=== PATIENT | female | born 1940 | race Caucasian/White ===

== ENCOUNTER 2018-02-06 12:31 | Inpatient (IN) | payer OTHER ==
[~2018-02-06] VITALS: Ht 304.8 cm; Wt 112.5 kg
[~2018-02-06 12:31] MED LIST: ASPIR 8181 MG PO; CEFTIN500 MG PO; CLOTRIMAZOLE10 MG PO; DITROPAN XL5 MG PO; FUROSEMIDE40 MG PO; INVANZ1 GM IVP; METOPROLOL TART50 MG PO; NIFEDICAL XL30 MG PO; NORCO 5-325 TA1 EACH PO; PEPCID20 MG PO; TYLENOL WITH C1 EACH PO; ZOLPIDEM TARTRAT5 MG PO
[2018-02-06 13:38] LABS: BASOPHILS % 0.5 % (0.0-1.0); EOSINOPHILS % 0.4 % (0.0-6.0); HEMATOCRIT 34.1 % (34.2-44.1); HEMOGLOBIN 11.1 g/dL (12.0-16.0); LYMPHOCYTES # (AUTO) 1.8 (1.0-3.2); LYMPHOCYTES % 22.1 % (18.0-39.1); MEAN CORPUSCULAR HEMOGLOBIN 33.5 pg (28-32); MEAN CORPUSCULAR HGB CONC 32.6 g/dL (31-35); MONOCYTES # (AUTO) 0.8 (0.2-0.8); MONOCYTES % 9.5 % (4.4-11.3); NEUTROPHILS # (AUTO) 5.3 (2.1-6.9); PLATELET COUNT 269 x10e3/uL (140-360); RED BLOOD COUNT 3.31 x10e6/uL (3.6-5.1); RED CELL DISTRIBUTION WIDTH 13.7 % (11.7-14.4)
[2018-02-06 13:52] LABS: ALBUMIN 2.4 g/dL (3.5-5.0); ALBUMIN/GLOBULIN RATIO 0.5 (0.8-2.0); ALKALINE PHOSPHATASE 135 IU/L (40-150); ANION GAP 18.1 mmol/L (8-16); BLOOD UREA NITROGEN 60 mg/dL (7-26); BUN/CREATININE RATIO 18 (6-25); CALCIUM 9.7 mg/dL (8.4-10.2); CARBON DIOXIDE 20 mmol/L (22-29); CHLORIDE 101 mmol/L (98-107); CREATININE, SERUM 3.27 mg/dL (0.57-1.11); EST GLOMERULAR FILTRATION RATE 14 ML/MIN (60-); GLUCOSE 105 mg/dL (74-118); SODIUM 134 mmol/L (136-145)
[2018-02-06 13:53] LABS: ALANINE AMINOTRANSFERASE < 6 IU/L (0-55)
[2018-02-06 13:54] LABS: POTASSIUM 5.1 mmol/L (3.5-5.1)
[2018-02-06 14:14] LABS: CLARITY,URINE SL CLOUDY (CLEAR); COLOR,URINE YELLOW (YELLOW); LEUKOCYTE ESTERASE ,URINE 1+ (NEGATIVE); NITRITE,URINE NEGATIVE (NEGATIVE)
[2018-02-06 14:15] LABS: BILIRUBIN,URINE NEGATIVE (NEGATIVE); KETONES,URINE NEGATIVE (NEGATIVE); PROTEIN,URINE DIPSTICK 2+ (NEGATIVE); URINE UROBILINOGEN 0.2 mg/dL (0.2 - 1)
[2018-02-06 14:26] LABS: BACTERIA,URINE FEW /HPF; EPITHELIAL CELLS,URINE MODERATE /LPF
--- NOTE | 2018-02-06 16:06 | Diagnostic Imaging Report ---
EXAM: CT of the abdomen and pelvis WITHOUT contrast HISTORY: Stone protocol, severe pain, bilateral flanks COMPARISON: None available. TECHNIQUE: The abdomen and pelvis were scanned utilizing a multidetector helical scanner. Coronal and sagittal reformats are available. PROTOCOL: Routine IV CONTRAST: None, which limits sensitivity and specificity of evaluation of the soft tissues and vascular structures. ORAL CONTRAST: None, which limits sensitivity and specificity of evaluation of the bowel. RADIATION DOSE: Total DLP: 716.91 mGy*cm Estimated effective dose: (DLP x 0.015 x size factor) Dose modulation, iterative reconstruction, and/or weight based adjustment of the mA/kV was utilized to reduce the radiation dose to as low as reasonably achievable. COMPLICATIONS: None FINDINGS: LOWER THORAX: Mild bibasilar atelectasis versus scarring. Trace right pleural thickening versus pleural fluid. Incidentally, small amount of low-density fluid at the posterior aspect of the inferior mediastinum (series 3 image 14), abutting the right posterior lateral aspect of the esophagus (series 3 image 10), the superior extent of the fluid may not be completely imaged. HEPATOBILIARY: No definite focal hepatic lesions. No biliary ductal dilatation. Metallic clips in the right upper quadrant of the abdomen are compatible with prior cholecystectomy. SPLEEN: No splenomegaly. Multiple small calcifications within the spleen. PANCREAS: No focal masses or ductal dilatation. ADRENALS: No discrete adrenal nodule. KIDNEYS/URETERS: Right: Moderate to severe hydroureteronephrosis to the level of the postsurgical changes within the right lower abdomen/pelvis. Left: Multiple coarse calcifications within the left kidney and severe parenchymal atrophy. No dilation of the ureter to the level of the postsurgical changes within the right lower abdomen/pelvis. The largest calcification is near the inferior pole measuring 2.4 cm (AP) x 2.3 cm (ML) x 2.1 cm (CC). PELVIC ORGANS/BLADDER: Post surgical changes, the urinary bladder is not visible. PERITONEUM / RETROPERITONEUM: No free air or fluid. GI TRACT: On limited evaluation of the gastrointestinal tract, no dilation or wall thickening identified. The stomach is decompressed, which limits evaluation. Colonic diverticulosis, without CT evidence of acute diverticulitis. Small bowel and colon extends into the large right anterolateral abdominal wall hernia. LYMPH NODES: No pathologically enlarged lymph nodes. VESSELS: Diffuse scattered atherosclerotic vascular calcifications. BONES: Diffusely decreased mineralization of the osseous structures limits bone detail. Multifocal degenerative changes, most notably the lumbosacral spine. Left convex curvature with associated right-sided anterior predominant age-indeterminate compression deformity of L3 and a left-sided to a lesser extent of L5. SOFT TISSUES: Diffuse muscle atrophy. Large right anterolateral abdominal wall hernia, the wall defect measures approximately 12 cm (CC) x 11 cm (ML). A smaller right para median ventral upper abdominal wall hernia containing a loop of nondilated small bowel (series 3 image 63), 6 cm (ML) sees x 2.5 cm (CC). An implanted right posterior lumbar-type device with a single sacral leads. IMPRESSION: 1. Multiple postsurgical changes and abdominal wall hernias. 2. Moderate to severe right hydroureteronephrosis. 3. Multiple left renal calculi and severe left renal cortical atrophy. 4. Colonic diverticulosis without CT evidence of acute diverticulitis. 5. Osseous demineralization with age-indeterminate compression deformities of L3 and L5. 6. Nonspecific posterior mediastinal fluid, likely partially visualized, the differential diagnosis includes an esophageal duplication cyst, which may be ruptured and partially decompressed. Recommend a follow-up nonemergent CT of the chest with contrast for further evaluation. Signed by: Dr. Sumit Locke D.O., M.M.M. on 02/06/2018 4:02 PM
--- OUTSIDE RECORDS SUMMARY | 2018-02-06 17:55 | XMS REPORT ---
Author [facility] Address Unknown Phone Unavailable Care Team Providers Care Attendance Clerk Name Role Phone Pablo HOOKER Unavailable Unavailable Problems This patient has no known problems. Allergies, Adverse Reactions, Alerts This patient has no known allergies or adverse reactions. Medications This patient has no known medications. Results Test Description Test Time Test Comments Text Results Atomic Results Result Comments CT ABDOMEN/PELVIS WO 2018-02-06 15:40:00 [place] [address] Patient Name: STORMY STREETER MR #: [id number] : 1940 Age/Sex: 77/F Req #: [id number] Adm Physician: Ordered by: BENITA HOOKER MD Report #: [id number] Location: ER Room/Bed: Procedure: [id number] CT/CT ABDOMEN/PELVIS WO Exam Date: 02/06/18 Exam Time: 1440 REPORT STATUS: Signed EXAM: CT of the abdomen and pelvis WITHOUT contrast HISTORY: Stone protocol, severe pain, bilateral flanks COMPARISON: None available. TECHNIQUE: The abdomen and pelvis were scanned utilizing a multidetector helical scanner. Coronal and sagittal reformats are available. PROTOCOL: Routine IV CONTRAST: None, which limits sensitivity and specificity of evaluation of the soft tissues and vascular structures. ORAL CONTRAST: None, which limits sensitivity and specificity of evaluation of the bowel. RADIATION DOSE: Total DLP: 716.91 mGy*cm Estimated effective dose: (DLP x 0.015 x size factor) Dose modulation, iterative reconstruction, and/or weight based adjustment of the mA/kV was utilized to reduce the radiation dose to as low as reasonably achievable. COMPLICATIONS: None FINDINGS: LOWER THORAX: Mild bibasilar atelectasis versus scarring. Trace right pleural thickening versus pleural fluid. Incidentally, small amount of low-density fluid at the posterior aspect of the inferior mediastinum (series 3 image 14), abutting the right posterior lateral aspect of the esophagus (series 3 image 10), the superior extent of the fluid may not be completely imaged. HEPATOBILIARY: No definite focal hepatic lesions. No biliary ductal dilatation. Metallic clips in the right upper quadrant of the abdomen are compatible with prior cholecystectomy. SPLEEN: No splenomegaly. Multiple small calcifications within the spleen. PANCREAS: No focal masses or ductal dilatation. ADRENALS: No discrete adrenal nodule. KIDNEYS/URETERS: Right: Moderate to severe hydroureteronephrosis to the level of the postsurgical changes within the right lower abdomen/pelvis. Left: Multiple coarse calcifications within the left kidney and severe parenchymal atrophy. No dilation of the ureter to the level of the postsurgical changes within the right lower abdomen/pelvis. The largest calcification is near the inferior pole measuring 2.4 cm (AP) x 2.3 cm (ML) x 2.1 cm (CC). PELVIC ORGANS/BLADDER: Post surgical changes, the urinary bladder is not visible. PERITONEUM / RETROPERITONEUM: No free air or fluid. GI TRACT: On limited evaluation of the gastrointestinal tract, no dilation or wall thickening identified. The stomach is decompressed, which limits evaluation. Colonic diverticulosis, without CT evidence of acute diverticulitis. Small bowel and colon extends into the large right anterolateral abdominal wall hernia. LYMPH NODES: No pathologically enlarged lymph nodes. VESSELS: Diffuse scattered atherosclerotic vascular calcifications. BONES: Diffusely decreased mineralization of the osseous structures limits bone detail. Multifocal degenerative changes, most notably the lumbosacral spine. Left convex curvature with associated right-sided anterior predominant age-indeterminate compression deformity of L3 and a left-sided to a lesser extent of L5. SOFT TISSUES: Diffuse muscle atrophy. Large right anterolateral abdominal wall hernia, the wall defect measures approximately 12 cm (CC) x 11 cm (ML). A smaller right para median ventral upper abdominal wall hernia containing a loop of nondilated small bowel (series 3 image 63), 6 cm (ML) sees x 2.5 cm (CC). An implanted right posterior lumbar-type device with a single sacral leads. IMPRESSION: 1. Multiple postsurgical changes and abdominal wall hernias. 2. Moderate to severe right hydroureteronephrosis. 3. Multiple left renal calculi and severe left renal cortical atrophy. 4. Colonic diverticulosis without CT evidence of acute diverticulitis. 5. Osseous demineralization with age-indeterminate compression deformities of L3 and L5. 6. Nonspecific posterior mediastinal fluid, likely partially visualized, the differential diagnosis includes an esophageal duplication cyst, which may be ruptured and partially decompressed. Recommend a follow-up nonemergent CT of the chest with contrast for further evaluation. Signed by: Dr. Loretta Locke D.O., M.M.M. on 02/06/2018 4:02 PM Dictated By: LORETTA LOCKE DO 160 Transcribed By: GENE on 02/06/18 160 COPY TO: BENITA HOOKER MD
[2018-02-06 18:34] VITALS: BP 156/70
[2018-02-06] MEDS ORDERED: TRAZODONE HCL50 MG PO (20:24)
[2018-02-06 21:00] VITALS: BP 166/74
--- NOTE | 2018-02-06 21:00 | NUR ---
received pt from ER to room 297, AAOx3, resp even and unlabored, on room air, c/o bilateral flank pain 08/18, has tylenol #3 but pt refused pain medication at this time "i dont want to take any narcotics right now", informed pt she has that pain medication order when she needs it, has several red spots and some scabs to face "i have psoriasis" no c/o of itching or pain to face, ambulates with assist, uses walker at home, has nephrostomy to right side of abdomen draining clear yellow urine, able to verbalize needs, bed in lowest position and locked with bed alarm on, call light in reach and instructed pt to call when assistance needed
[2018-02-07] VITALS (8 sets, daily range): BP systolic 138–183; BP diastolic 59–80
[2018-02-07] MEDS: ACETAMINOPHEN/CODEINE 300MG - 30MG TAB PO PRN ×3 (02:48→16:00)
--- NOTE | 2018-02-07 07:25 | NUR ---
RECEIVED PT RESTING IN BED. RESPIRATIONS ARE EVEN AND UNLABORED, NO ACUTE DISTRESS NOTED. CALL LIGHT WITH IN REACH. BED IN THE LOWEST POSITION.
--- NOTE | 2018-02-07 07:25 | NUR ---
UPON ASSESSMENT PATIENT HAS BLANCHABLE REDNESS TO SACRUM AND BILATERAL UPPER BUTTOCK.
--- NOTE | 2018-02-07 07:28 | NUR ---
APPLIED ALLEVYN DRESSING TO SACRUM/UPPER BUTTOCKS PROPHYLACTICALLY.
[2018-02-07] MEDS ORDERED: SUCCINYLCHOLINE 200 MG/10 ML SYR ONE (13:42)
[2018-02-07] MEDS ORDERED: SODIUM BICARBO650 MG PO (15:48)
[2018-02-07] MEDS ORDERED: DOCUSATE SODIU100 MG PO (15:48)
[2018-02-07] MEDS ORDERED: LEVOCETIRIZINE D5 MG PO (15:48)
[2018-02-07] MEDS ORDERED: COLESTIPOL HCL1 GM PO (15:48)
[2018-02-07] MEDS ORDERED: NON-FORMULARY MEDICATION (Zolpidem Tartrate 5 MG) PO SCH (16:30)
--- NOTE | 2018-02-07 16:57 | History and Physical ---
PRIMARY CARE PHYSICIAN: Dr. Spencer Marvin. CHIEF COMPLAINT: Dehydration, urinary tract infection, left flank pain. HISTORY OF PRESENT ILLNESS: Patient is a 77-year-old female with extensive abdominal pelvic surgery for her urinary bladder problem. The patient came in with abdominal pain more so on the right side, and CT scan showed moderate to severe right hydroureteronephrosis associated with urinary tract infection. She also has an ileal conduit as well. CT scan showed multiple postsurgical changes and an abdominal wall hernia. The patient is otherwise stable at this time. She does have multiple left renal calculi and severe left renal cortical atrophy which is chronic to this patient. Patient had a low-grade fever as well. She is comfortable at this time. Blood pressure elevated. PAST MEDICAL HISTORY: Chronic kidney disease. Ureterostomy/ileal conduit obstruction. Recurrent urinary tract infection. Hypertension. Insomnia. Reflux. Left renal atrophy. Chronic kidney disease. SOCIAL HISTORY: Patient does not smoke or use alcohol. No recreational drug use. ALLERGIES: TO PENICILLIN. HOME MEDICATIONS: List is reviewed. REVIEW OF SYSTEMS: As mentioned above. Right flank pain. Fever. PHYSICAL EXAMINATION: VITAL SIGNS: T-max was 99.8. Blood pressure 121/61. Pulse rate 71. Respirations 20. GENERAL: The patient is not in acute distress. She is awake. HEENT: Normocephalic, atraumatic, anicteric. NECK: Supple grossly. PULMONARY: Diminished breath sounds. CARDIOVASCULAR: S1, S2. Regular rate and rhythm. ABDOMEN: Large abdominal hernia. She has a ureterostomy with a history of ileal conduit. Some tenderness in the area. EXTREMITIES: No cyanosis or edema. NEUROLOGIC: No focal deficit. LABORATORY: Sodium is 134, potassium 5.1, chloride 101, bicarb 20, BUN 60, creatinine 3.2, glucose 105. WBC is 8.0, hemoglobin 11, hematocrit 34, platelet is 269. IMPRESSION: 1. Urinary tract infection associated with right hydroureteronephrosis. 2. Bilateral kidney stone with obstruction. 3. Left atrophy kidney noticed chronically. 4. Acute on chronic kidney failure. 5. Possible early pyelonephritis. PLAN: IV antibiotics. Urine culture. Pain control. Follow up on Dr. Robby Estrada's recommendation on obstructive care. We will resume home medications. Blood pressure control. Job#: [id number] EV
[2018-02-07] MEDS: SODIUM CHLORIDE 0.9% 1000ML 1,000 ML IV SCH (17:13)
[2018-02-07] MEDS: NIFEDIPINE CR 30 MG TAB PO SCH (17:13)
[2018-02-07] MEDS: DOCUSATE SODIUM 100 MG CAP PO SCH (17:17)
[2018-02-07] MEDS: METOPROLOL TARTRATE 50 MG TAB PO SCH (17:17)
[2018-02-07] MEDS: FAMOTIDINE 20 MG TAB PO SCH (17:17)
[2018-02-07] MEDS: SODIUM BICARBONATE 650 MG TAB PO SCH (17:17)
[2018-02-07] MEDS: AZTREONAM 1 GM/NS 50 ML 50 ML IV SCH (17:49)
--- NOTE | 2018-02-07 19:34 | NUR ---
REPORT GIVEN TO ONCOMING NURSE. PATIENT IS RESTING IN BED. NO S/S OF DISTRESS NOTED. CALL LIGHT WITHIN REACH. BED IN THE LOWEST POSITION.
[2018-02-07] MEDS: ZOLPIDEM TARTRATE 5 MG TAB PO SCH (21:00)
[2018-02-07] MEDS: TRAZODONE HCL 50 MG TAB PO SCH (21:00)
--- NOTE | 2018-02-07 21:21 | NUR ---
RECEIVED PT IN BED AOX2.RESPIRATIONS ARE EVEN AND UNLABORED .UROSTOMY INTACT .PT REFUSED TO LIE IN THE BED .PT WANTS SIT ON THE SIDE OF THE BED .CALL LIGHT WITH IN REACH .
[2018-02-08] VITALS (9 sets, daily range): BP systolic 129–158; BP diastolic 65–83
[2018-02-08] MEDS: ACETAMINOPHEN/CODEINE 300MG - 30MG TAB PO PRN (01:18)
[2018-02-08] MEDS: AZTREONAM 1 GM/NS 50 ML 50 ML IV SCH ×3 (04:30→21:24)
[2018-02-08] MEDS: SODIUM CHLORIDE 0.9% 1000ML 1,000 ML IV SCH ×2 (05:45→21:24)
[2018-02-08 06:15] LABS: BASOPHILS % 0.3 % (0.0-1.0); EOSINOPHILS % 0.1 % (0.0-6.0); HEMATOCRIT 31.1 % (34.2-44.1); HEMOGLOBIN 10.1 g/dL (12.0-16.0); LYMPHOCYTES # (AUTO) 2.3 (1.0-3.2); LYMPHOCYTES % 30.1 % (18.0-39.1); MEAN CORPUSCULAR HEMOGLOBIN 33.8 pg (28-32); MEAN CORPUSCULAR HGB CONC 32.5 g/dL (31-35); MONOCYTES # (AUTO) 0.8 (0.2-0.8); MONOCYTES % 10.2 % (4.4-11.3); NEUTROPHILS # (AUTO) 4.4 (2.1-6.9); NEUTROPHILS % 58.4 % (38.7-80.0); PLATELET COUNT 248 x10e3/uL (140-360); RED BLOOD COUNT 2.99 x10e6/uL (3.6-5.1); RED CELL DISTRIBUTION WIDTH 13.5 % (11.7-14.4)
[2018-02-08 06:30] LABS: CREATININE, SERUM 2.71 mg/dL (0.57-1.11)
--- NOTE | 2018-02-08 06:41 | NUR ---
PT AGITATED DURING THE NIGHT .PT C/O PAIN AND GIVEN THE ORDERED PAIN MEDICATION.TEM IS 100.[address] CALDWELL AND REQUESTED FOR TYLENOL ,.HE HAS WRITTEN ORDER FOR BLOOD CULTURE AND CHEST X-RAY .HE TOLD TO DO ONE MORE CULTURE IF THE TEMP >101.PT RESTING .CALL LIGHT WITH IN REACH.
--- NOTE | 2018-02-08 07:11 | NUR ---
.REPORT GIVEN TO THE ONCOMING NURSE .
--- NOTE | 2018-02-08 07:25 | NUR ---
RECEIVED PATIENT RESTING IN BED. NO ACUTE DISTRESS NOTED. CALL LIGHT WITHIN REACH. BED IN THE LOWEST POSITION. BED ALARM ON.
[2018-02-08] MEDS ORDERED: NON-FORMULARY MEDICATION (Levocetirizine Dihydrochloride 5 MG) PO SCH (09:00)
--- NOTE | 2018-02-08 09:34 | Diagnostic Imaging Report ---
EXAMINATION: CHEST 2 VIEWS INDICATION: ^fevers ^[id number] ^[id number] COMPARISON: 03/30/2015 FINDINGS: PA and lateral views TUBES and LINES: Left chest wall dual-lead cardiac device in place with distal leads overlying right atrium and right ventricle. LUNGS: Lungs are well inflated. Central peribronchovascular thickening/cuffing. Left basilar hazy opacification. PLEURA: No pneumothorax. HEART AND MEDIASTINUM: The cardiomediastinal silhouette is prominent. Median sternotomy wires. BONES AND SOFT TISSUES: No acute osseous lesion. Soft tissues are unremarkable. UPPER ABDOMEN: No free air under the diaphragm. IMPRESSION: Central peribronchovascular thickening/cuffing. Left basilar hazy opacification, representing small effusion and/or pneumonia. Signed by: Dr. Mustapha Helton MD on 02/08/2018 9:31 AM
[2018-02-08] MEDS: NIFEDIPINE CR 30 MG TAB PO SCH (10:40)
[2018-02-08] MEDS: OXYBUTYNIN CHLORIDE XL 5 MG TAB PO SCH (10:40)
[2018-02-08] MEDS: FAMOTIDINE 20 MG TAB PO SCH ×2 (10:40→17:03)
[2018-02-08] MEDS: SODIUM BICARBONATE 650 MG TAB PO SCH ×2 (10:40→17:03)
[2018-02-08] MEDS: METOPROLOL TARTRATE 50 MG TAB PO SCH ×2 (10:40→17:03)
[2018-02-08] MEDS: DOCUSATE SODIUM 100 MG CAP PO SCH ×2 (10:40→17:02)
[2018-02-08] MEDS: LORATADINE 10 MG TAB PO SCH (10:40)
[2018-02-08] MEDS ORDERED: FISH OIL OMEGA1 EACH PO (10:44)
[2018-02-08] MEDS: OMEGA 3 POLYUNSAT FATTY ACIDS 1000 MG SOFTGEL PO SCH (17:03)
--- NOTE | 2018-02-08 19:09 | NUR ---
REPORT GIVEN TO ONCOMING NURSE. PATIENT IS IN STABLE CONDITION. NO ACUTE DISTRESS NOTED. CALL LIGHT WITHIN REACH. BED IN THE LOWEST POSITION. BED ALARM ON.
--- NOTE | 2018-02-08 20:30 | NUR ---
Received patient from nurse, patient in bed, introduced self to patient and patient made aware of plan of care for the night verbalized understanding. patient is alert and oriented now, safety and fall precautions maintained: bed in lowest position and locked, needed items beside bed and call gregory placed close to patient, patient instructed to use it to call nurses for any assistance needed patient verbalized understanding, patient is currently stable will continue to monitor.
[2018-02-08] MEDS: ZOLPIDEM TARTRATE 5 MG TAB PO SCH (21:00)
[2018-02-08] MEDS: TRAZODONE HCL 50 MG TAB PO SCH (21:24)
[2018-02-09] VITALS (8 sets, daily range): BP systolic 126–141; BP diastolic 59–68
--- NOTE | 2018-02-09 07:12 | NUR ---
Patient condition throughout the night was stable, patient endorsed to next shift for continuity of care.
--- NOTE | 2018-02-09 07:40 | NUR ---
RECEIVED PATIENT RESTING IN BED. NO ACUTE DISTRESS NOTED. NO S/S OF PAIN NOTED AT THIS TIME. CALL LIGHT WITH IN REACH. BED IN THE LOWEST POSITION. BED ALARM ON.
[2018-02-09] MEDS: ACETAMINOPHEN/CODEINE 300MG - 30MG TAB PO PRN ×2 (09:35→16:16)
[2018-02-09] MEDS: OXYBUTYNIN CHLORIDE XL 5 MG TAB PO SCH (09:51)
[2018-02-09] MEDS: LORATADINE 10 MG TAB PO SCH (09:51)
[2018-02-09] MEDS: DOCUSATE SODIUM 100 MG CAP PO SCH ×2 (09:51→16:16)
[2018-02-09] MEDS: METOPROLOL TARTRATE 50 MG TAB PO SCH ×2 (09:52→16:17)
[2018-02-09] MEDS: OMEGA 3 POLYUNSAT FATTY ACIDS 1000 MG SOFTGEL PO SCH ×2 (09:52→16:17)
[2018-02-09] MEDS: NIFEDIPINE CR 30 MG TAB PO SCH (09:52)
[2018-02-09] MEDS: FAMOTIDINE 20 MG TAB PO SCH ×2 (09:52→16:17)
[2018-02-09] MEDS: SODIUM BICARBONATE 650 MG TAB PO SCH ×2 (09:52→16:17)
--- NOTE | 2018-02-09 14:00 | NUR ---
NURSE AND TECH IN TO TURN PATIENT FROM LEFT SIDE TO BACK NOTICED THAT THE PILLOW THAT WAS PREPPING PATIENT TO THE LEFT HAD BEEN REMOVED BY DUE TO "PILLOW BEING WET". EDUCATED HIM THAT WE NEED TO TURN PATIENT EVERY 2 HOURS TO PREVENT PRESSURE ULCERS AND THAT IF ANYTHING IS WRONG WITH THE PILLOW TO NOTIFY STAFF, HE VERBALIZED UNDERSTANDING.
[2018-02-09] MEDS: SODIUM CHLORIDE 0.9% 1000ML 1,000 ML IV SCH ×2 (15:56→21:50)
[2018-02-09] MEDS: AZTREONAM 1 GM/NS 50 ML 50 ML IV SCH (16:16)
--- NOTE | 2018-02-09 17:50 | NUR ---
CALLED DR. PERSAUD TO NOTIFY HIM THAT PATIENT IS BEING CONFUSED AND AGITATED, NO ANSWER, LVM.
--- NOTE | 2018-02-09 19:32 | NUR ---
REPORT GIVEN TO ONCOMING NURSE. PATIENT IS RESTING IN BED. NO ACUTE DISTRESS NOTED. CALL LIGHT WITHIN REACH. BED IN THE LOWEST POSITION. BED ALARM ON.
[2018-02-09] MEDS: TRAZODONE HCL 50 MG TAB PO SCH (21:00)
[2018-02-09] MEDS: ZOLPIDEM TARTRATE 5 MG TAB PO SCH (21:00)
[2018-02-10] VITALS (7 sets, daily range): BP systolic 130–139; BP diastolic 60–77
[2018-02-10] MEDS: ACETAMINOPHEN 325 MG TAB PO PRN (00:28)
[2018-02-10] MEDS: AZTREONAM 1 GM/NS 50 ML 50 ML IV SCH ×2 (05:39→17:25)
[2018-02-10 05:57] LABS: BASOPHILS # (AUTO) 0.1 (0.0-0.1); BASOPHILS % 0.5 % (0.0-1.0); EOSINOPHILS # (AUTO) 0.1 (0.0-0.4); EOSINOPHILS % 0.8 % (0.0-6.0); HEMATOCRIT 29.4 % (34.2-44.1); HEMOGLOBIN 9.3 g/dL (12.0-16.0); LYMPHOCYTES # (AUTO) 2.9 (1.0-3.2); LYMPHOCYTES % 29.7 % (18.0-39.1); MEAN CORPUSCULAR HEMOGLOBIN 32.7 pg (28-32); MEAN CORPUSCULAR HGB CONC 31.6 g/dL (31-35); MEAN CORPUSCULAR VOLUME 103.5 fL (81-99); MONOCYTES % 10.1 % (4.4-11.3); NEUTROPHILS # (AUTO) 5.6 (2.1-6.9); PLATELET COUNT 266 x10e3/uL (140-360); RED BLOOD COUNT 2.84 x10e6/uL (3.6-5.1); RED CELL DISTRIBUTION WIDTH 13.3 % (11.7-14.4)
[2018-02-10 06:26] LABS: ANION GAP 15.1 mmol/L (8-16); CALCIUM 8.6 mg/dL (8.4-10.2); CREATININE, SERUM 2.96 mg/dL (0.57-1.11); POTASSIUM 4.1 mmol/L (3.5-5.1)
--- NOTE | 2018-02-10 07:21 | NUR ---
patient endorsed to next shift for continuity of care.
[2018-02-10] MEDS: FAMOTIDINE 20 MG TAB PO SCH ×2 (08:21→17:26)
[2018-02-10] MEDS: OMEGA 3 POLYUNSAT FATTY ACIDS 1000 MG SOFTGEL PO SCH ×2 (09:00→17:26)
[2018-02-10] MEDS: METOPROLOL TARTRATE 50 MG TAB PO SCH ×2 (09:00→17:26)
[2018-02-10] MEDS: DOCUSATE SODIUM 100 MG CAP PO SCH ×2 (09:00→17:25)
[2018-02-10] MEDS: OXYBUTYNIN CHLORIDE XL 5 MG TAB PO SCH (09:00)
[2018-02-10] MEDS: LORATADINE 10 MG TAB PO SCH (09:00)
[2018-02-10] MEDS: NIFEDIPINE CR 30 MG TAB PO SCH (09:00)
[2018-02-10] MEDS: SODIUM BICARBONATE 650 MG TAB PO SCH ×2 (09:00→17:26)
[2018-02-10] MEDS: SODIUM CHLORIDE 0.9% 1000ML 1,000 ML IV SCH ×2 (09:30→23:27)
--- NOTE | 2018-02-10 10:09 | NUR ---
WOUND CARE NURSE CONSULTATION. 77 YEAR OLD FEMALE ADMITTED TO [facility] WITH DX OF ACUTE ON CHRONIC RENAL FAILURE. HEAD TO TOE SKIN ASSESSMENT PERFORMED TODAY. PT PRESENTS WITH AN AREA OF 8X7CM BLANCHABLE REDNESS TO SACRUM AND BILATERAL BUTTOCKS. FOAM DRESSING IN PLACE. 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 ABDOMINAL HERNIA AND INTACT UROSTOMY BAG NOTED TO RIGHT LOWER QUADRANT. THERE ARE NO OTHER AREAS OF CONCERN NOTED AT THIS TIME. LABS: WBC: 9.59 GLUCOSE: 94 ALB: 2.4 BLOOD CX PENDING. RECOMMENDATIONS: CONTINUE WITH FOAM DRESSING DAILY. TURN EVERY TWO HOURS AND PRN. CONTINUE WITH ALTERNATING LOW AIR LOSS MATTRESS CONTINUE WITH BILATERAL HEEL PROTECTORS. Addendum: 02/10/18 at 1018 by Rachel Apple RN Amended: Links added.
[2018-02-10] MEDS: ACETAMINOPHEN/CODEINE 300MG - 30MG TAB PO PRN ×2 (11:31→22:40)
--- NOTE | 2018-02-10 16:47 | NUR ---
Integrity Specialist to bedside to discuss plan of care with patient/family. CM/SW role and care transitions discussed. Anticipated discharge plan discussed along with duration of care. CM/SW discussed patients right to make decisions in care. CM/SW work hours given. Patient lives: PATIENT LIVES WITH IN [address] IN [place], [place] Admit/Transfer: ED POA/Emergency contact: DALIA STREETER- [phone] Current/Previous Home Health: NONE PCP/Follow-up Care: DR. 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 PATIENT REQUIRES FREQUENT STOPS FOR BREAKS WHEN WALKING IN HOME Referral Needs: HOME HEALTH Education Needs: NOT AT THIS TIME IMM/KENDALL given and signed (if applicable): N/A Goal for discharge: PATIENT TO DISCHARGE HOME WITH HOME HEALTH SERVICES FOR PT EVAL AND TREAT WELL HALFWAY CM left business card at the bedside with contact information. Name and number was also written on the patients whiteboard. Patient verbalized understanding of discussion. CM will follow-up with ongoing discharge and transition of care needs.
[2018-02-10] MEDS: ONDANSETRON HCL INJ 2 MG/ML VIAL IV PRN ×2 (19:02→19:03)
--- NOTE | 2018-02-10 20:00 | NUR ---
pt resting. no ss of distress noted. no co pain at time. right quadrant urostomy cdi. pt diaper changed at time. pt repositioned. adam heel protectors in place. will cont to follow poc. call gregory within reach.
[2018-02-10] MEDS: TRAZODONE HCL 50 MG TAB PO SCH (21:29)
[2018-02-10] MEDS: ZOLPIDEM TARTRATE 5 MG TAB PO SCH (23:27)
[2018-02-11] VITALS (7 sets, daily range): BP systolic 109–131; BP diastolic 49–63
[2018-02-11] MEDS: AZTREONAM 1 GM/NS 50 ML 50 ML IV SCH ×2 (04:39→17:27)
[2018-02-11] MEDS: ACETAMINOPHEN/CODEINE 300MG - 30MG TAB PO PRN (04:40)
[2018-02-11] MEDS: ONDANSETRON HCL INJ 2 MG/ML VIAL IV PRN (05:41)
--- NOTE | 2018-02-11 05:41 | NUR ---
pt nauseated at time. medicated per orders. no distress noted. call gregory within reach.
[2018-02-11 06:25] LABS: ALBUMIN 1.7 g/dL (3.5-5.0); ANION GAP 17.2 mmol/L (8-16); CREATININE, SERUM 3.25 mg/dL (0.57-1.11); POTASSIUM 4.2 mmol/L (3.5-5.1)
[2018-02-11 08:08] LABS: ALBUMIN/GLOBULIN RATIO 0.4 (0.8-2.0)
[2018-02-11] MEDS: LORATADINE 10 MG TAB PO SCH (09:00)
[2018-02-11] MEDS: METOPROLOL TARTRATE 50 MG TAB PO SCH ×2 (09:00→17:00)
[2018-02-11] MEDS: SODIUM BICARBONATE 650 MG TAB PO SCH ×2 (09:00→15:00)
[2018-02-11] MEDS: OMEGA 3 POLYUNSAT FATTY ACIDS 1000 MG SOFTGEL PO SCH ×2 (09:00→17:27)
[2018-02-11] MEDS: FAMOTIDINE 20 MG TAB PO SCH ×2 (09:00→17:27)
[2018-02-11] MEDS: OXYBUTYNIN CHLORIDE XL 5 MG TAB PO SCH (09:00)
[2018-02-11] MEDS: NIFEDIPINE CR 30 MG TAB PO SCH (09:00)
[2018-02-11] MEDS ORDERED: HYDROCODONE/APAP 10MG-325MG TAB PO PRN (09:45)
[2018-02-11] MEDS ORDERED: BISACODYL 10 MG SUPP PR PRN (09:45)
[2018-02-11] MEDS ORDERED: BISACODYL 10 MG SUPP PR ONE (09:45)
[2018-02-11] MEDS: SENNOSIDES 8.6 MG TAB PO SCH ×2 (10:34→17:27)
[2018-02-11] MEDS: TRAMADOL HCL 50 MG TAB PO SCH ×3 (10:35→18:22)
[2018-02-11] MEDS: SODIUM CHLORIDE 0.9% 1000ML 1,000 ML IV SCH (12:29)
--- NOTE | 2018-02-11 14:16 | Consultation ---
DATE OF CONSULTATION: February 11, 2018 RENAL CONSULT Ms. Lindy Pena is a pleasant 77-year-old female who has got a urinary diversion. She has solitary functioning kidney, had moderate to severe right-sided hydronephrosis, multiple left renal calculi, severe left renal cortical atrophy. Follows Dr. Estrada as an outpatient and Dr. Marvin. She is currently comfortable, lying supine, no apparent distress. I have been asked to assess her kidney failure. by bedside. She denies any nausea, vomiting, shortness of breath. SHE IS ALLERGIC TO PENICILLIN. She also denies any fever and chills. She is currently on aztreonam 1 g IV q.12, normal saline at 75 mL an hour which I am going to stop at this point in time. She is on Tylenol p.r.n., docusate, famotidine, hydralazine p.r.n., hydrocodone p.r.n., Claritin 10 mg p.o. daily. She is on metoprolol 50 mg b.i.d. She is on nifedipine 90 mg daily. She is on [place]-3 fatty acids. She is on Ditropan 15 mg p.o. daily. She is on sodium bicarbonate tablets 1300 mg p.o. t.i.d. which I am going to adjust. CURRENT REVIEW OF SYSTEMS: As above. Denies any fever, chills, shortness of breath. LABS: Show sodium of 133, potassium 4.2, chloride 106, bicarbonate 14, BUN 55, creatinine 3.25. White count is 9.59, hemoglobin 9.3. PHYSICAL EXAMINATION GENERAL: Awake, alert, lying supine. No apparent distress. VITAL SIGNS: Blood pressure 110/84, pulse rate 64, respiratory rate 14. HEAD AND NECK: Cornea clear. Oral mucosa dry. LUNGS: Occasional rhonchi, occasional rales right base, but other than that clear. HEART: S1 and S2 audible. ABDOMEN: Soft, nontender. Has the diverting ileostomy bag noted on the right side and some abdominal wall hernia. She has otherwise no apparent palpable visceromegaly noted. LOWER EXTREMITIES: No edema. IMPRESSION/PLAN: Distal renal tubular acidosis due to chronic kidney failure, severely hydronephrotic right kidney. Left kidney has kidney stones. Diverting ileostomy. Normal anion gap metabolic acidosis. Underlying chronic kidney disease most likely 3, now possibly 4. On antibiotics. urine culture has not been sent. Blood cultures are negative so far. I have made the necessary adjustments in medications. Discussed with and . Please see orders. Will follow up and will be happy to see as an outpatient. Job#: [id number] EV
[2018-02-11] MEDS: SODIUM BICARBONATE 8.4% SYRING 150 ML in DEXTROSE 5% 1,000 ML IV SCH (14:24)
--- NOTE | 2018-02-11 14:49 | Diagnostic Imaging Report ---
Exam: KUB. Clinical History: Abdominal pain. Epigastric pain. Comparison: CT scan of 02/06/2018 Findings: Frontal view of the abdomen demonstrates moderate retained stool. Numerous dilated air-filled loops of bowel are seen. These are more pronounced over the right lower abdomen. These measure up to 5.8 cm in diameter Numerous stones over the left kidney. Surgical clips over the lower abdomen/pelvis. Metallic device and lead over the right sacrum Impression: Findings worrisome for early bowel obstruction. CT scan is recommended for further evaluation Signed by: Dr. Felix Reyes M.D. on 02/11/2018 2:46 PM
--- NOTE | 2018-02-11 17:59 | Diagnostic Imaging Report ---
EXAM: Renal Ultrasound COMPARISON: CT Abdomen/Pelvis 02/06/18. TECHNIQUE: Transverse and longitudinal images of the kidneys and bladder were obtained. FINDINGS: Right Kidney: Length: Measures 11.4 x 5.1 x 4 cm Appearance: Increased echogenicity. Collecting system: Severe right hydronephrosis. Stones: None Cyst/Mass: None Left Kidney: Length: Measures 7.2 x 3.7 x 3.6 cm Appearance: Increased echogenicity. Atrophic in appearance. Collecting system: No hydronephrosis Stones: Left lower pole calcifications are better characterized on prior CT. Cyst/Mass: None Bladder: Not well visualized. IMPRESSION: Severe right hydronephrosis, similar in appearance to CT on 02/06/18. Atrophic left kidney. Left lower pole renal calcifications, better characterized on CT from 02/06/18. Increased bilateral renal echogenicity, which could represent medical renal disease. Signed by: Dr. Nickolas Lance MD on 02/11/2018 5:56 PM
--- NOTE | 2018-02-11 18:30 | NUR ---
KUB results called to Dr. Woody and received new orders to for CT of abd/pelvis WO contrast to R/O bowel obstruction.
--- NOTE | 2018-02-11 19:00 | NUR ---
patient recieved awake, alert, lying quietly in bed. vss. pain minimal at this time. ivf continue to infuse without difficulty. patient for ct abd tonight. patient verbalizes understanding of this. pm assessment complete. patient instructed to call for assistance when needed.
[2018-02-11] MEDS ORDERED: DIATRIZOATE MEGL/DIATRIZOA SOD 30 ML BTL PO ONE (19:19)
--- NOTE | 2018-02-11 23:40 | NUR ---
patient to ct via wheelchair at this time.
[2018-02-12] VITALS (8 sets, daily range): BP systolic 98–163; BP diastolic 58–69
--- NOTE | 2018-02-12 00:54 | Diagnostic Imaging Report ---
EXAM: CT ABDOMEN/PELVIS WO DATE: 02/11/2018 6:32 PM INDICATION: Bowel obstruction, abdominal pain COMPARISON: 02/06/2018 TECHNIQUE: The abdomen and pelvis were scanned using a multidetector helical scanner. Coronal and sagittal reformations were obtained. CT low dose techniques were utilized, as applicable. IV Contrast: 0 ml Isovue 300/370 FINDINGS: Lack of IV contrast decreases sensitivity in evaluating abdominal and pelvic organs. Note that portion of the right lower abdomen and large ventral hernia is incompletely imaged. LOWER THORAX: Severe coronary artery and aortic atherosclerotic disease. Increased small pleural effusions. Fluid again noted in the posterior mediastinum near the diaphragmatic hiatus. LIVER/BILIARY: Grossly unremarkable noncontrast appearance. Periportal edema, new. GALLBLADDER: Surgically absent SPLEEN: No splenomegaly PANCREAS: Unremarkable ADRENALS: No nodules KIDNEYS: Atrophic left kidney with multiple large left renal calculi, similar to prior. Stable moderate to severe right hydroureteronephrosis to the level of the presumed right lower quadrant urinary conduit. GI TRACT: New diffuse dilation of the stomach and small bowel. Transition point is difficult to identify due to the large complex ventral hernia containing small and large bowel, but appears to be within the hernia sac as decompressed bowel is seen in the right lower aspect of the hernia near the abdominal wall on image 72. There is dilated right and transverse colon. VESSELS: Severe atherosclerotic vascular calcification. Ectatic suprarenal abdominal aorta to 2.6 cm. PERITONEUM/RETROPERITONEUM: No free air or fluid LYMPH NODES: No lymphadenopathy REPRODUCTIVE ORGANS/BLADDER: Postsurgical changes status post cystectomy and hysterectomy. SOFT TISSUES: See above BONES: Decreased bone mineralization, multilevel degenerative changes, right L3 and left L5 compression deformities again noted. IMPRESSION: 1. Small bowel obstruction with transition in the right lower aspect of the large complex ventral hernia. 2. Postsurgical changes again noted. Stable moderate to severe right hydroureteronephrosis to the level of the expected urinary conduit and left renal atrophy and nephrolithiasis. Signed by: Dr Denisse Bee MD on 02/12/2018 12:51 AM
[2018-02-12] MEDS: AZTREONAM 1 GM/NS 50 ML 50 ML IV SCH ×2 (04:11→17:23)
[2018-02-12] MEDS: TRAMADOL HCL 50 MG TAB PO SCH ×4 (06:00→18:18)
[2018-02-12 06:18] LABS: ALBUMIN 1.8 g/dL (3.5-5.0); ALBUMIN/GLOBULIN RATIO 0.4 (0.8-2.0); CALCIUM 9.5 mg/dL (8.4-10.2); CREATININE, SERUM 4.18 mg/dL (0.57-1.11)
--- NOTE | 2018-02-12 07:23 | NUR ---
RECEIVED PATIENT SITTING UP IN BED. SHE IS ACTIVELY VOMITING, GREEN EMESIS. WILL NOTIFY DR. PERSAUD.
--- NOTE | 2018-02-12 07:25 | NUR ---
CALLED AND LEFT MESSAGE WITH DR. PERSAUD REGARDING SMALL BOWEL OBSTRUCTION AND ACTIVELY VOMITING. AWAITING CALL BACK.
--- NOTE | 2018-02-12 07:48 | NUR ---
SPOKE WITH DR. PERSAUD REGARDING SMALL BOWEL OBSTRUCTION SHOWN ON CT AND ACTIVE VOMITING. NEW ORDERS RECEIVED.
--- NOTE | 2018-02-12 07:54 | NUR ---
CONSULT PLACED TO DR. PHILLIPS. AWAITING CALL BACK.
--- NOTE | 2018-02-12 08:00 | NUR ---
NG TUBE INSERTED AT THIS TIME, PATIENT TOLERATED WELL. 3300CC OF GASTRIC CONTENT NOTED.
[2018-02-12] MEDS: OMEGA 3 POLYUNSAT FATTY ACIDS 1000 MG SOFTGEL PO SCH ×2 (09:00→17:23)
[2018-02-12] MEDS: NIFEDIPINE CR 30 MG TAB PO SCH (09:00)
[2018-02-12] MEDS: METOPROLOL TARTRATE 50 MG TAB PO SCH ×2 (09:00→17:23)
[2018-02-12] MEDS: OXYBUTYNIN CHLORIDE XL 5 MG TAB PO SCH (09:00)
[2018-02-12] MEDS: LORATADINE 10 MG TAB PO SCH (09:00)
[2018-02-12] MEDS: SENNOSIDES 8.6 MG TAB PO SCH (09:00)
[2018-02-12] MEDS: FAMOTIDINE 20 MG TAB PO SCH (09:00)
[2018-02-12] MEDS: SODIUM BICARBONATE 650 MG TAB PO SCH ×5 (09:00→21:38)
--- NOTE | 2018-02-12 09:24 | Diagnostic Imaging Report ---
PROCEDURE:X-RAY ABDOMEN - KUB COMPARISON:CT scan of the abdomen and pelvis dated 02/11/2018 INDICATIONS:NG TUBE PLACEMENT FINDINGS: Only the upper abdomen is included for visualization. There is a nasogastric tube present with its tip extending below the diaphragm out of the field of view. There are no masses or abnormal calcifications. Pain generator overlies the right mid abdomen and confirmed on the cross-sectional imaging to be posterior. There is no evidence of free air. No acute osseous abnormalities are present. CONCLUSION: 1. No acute abdominal abnormality. 2. NG tube extends below the diaphragm. Lance Dockery D.O. Dictated by: Lance Dockery D.O. on 02/12/2018 at 9:33 Electronically approved by: Lance Dockery D.O. on 02/12/2018 at 9:33
[2018-02-12] MEDS: SODIUM BICARBONATE 8.4% SYRING 150 ML in DEXTROSE 5% 1,000 ML IV SCH (11:02)
--- NOTE | 2018-02-12 12:29 | NUR ---
CALLED DR. PERSAUD TO NOTIFY HIM OF PATIENT'S ELEVATED HR OF 136, NO ANSWER, LEFT VOICEMAIL.
[2018-02-12 12:33] LABS: INR 1.12; PROTHROMBIN TIME 15.4 seconds (11.9-14.5)
[2018-02-12 12:34] LABS: PARTIAL THROMBOPLASTIN TIME 40.5 seconds (23.8-35.5)
--- NOTE | 2018-02-12 12:54 | NUR ---
CALLED DR. HOANG TO VERIFY WHAT KIND OF CULTURE HE NEEDED FOR PATIENT. PER MD COLLECT URINE CULTURE AT THE TIME OF RIGHT NEPHROSTOMY INSERTION AND TO BE LABELED " NEPHROSTOMY SPECIMEN, RIGHT KIDNEY URINE"
--- NOTE | 2018-02-12 14:45 | Consultation ---
DATE OF CONSULTATION: February 12, 2018 REFERRING PHYSICIAN: Diaz Woody MD HISTORY OF PRESENT ILLNESS: The patient is a 77-year-old female who has had multiple previous abdominal surgeries, who was admitted to the hospital with urinary tract infection and right hydronephrosis. She has had previous ileal conduit with the drainage through a stoma in the right lower quadrant. Apparently, the drainage has been less, and there is now right hydronephrosis. She also has findings of abdominal distention with a large ventral hernia. She is not passing any stool and had only a small amount of flatus passed. CT of the abdomen done yesterday suggests small-bowel obstruction, although plain abdominal x-ray today was not read as obstruction. Patient had nausea and vomiting which started today. A nasogastric tube is in place, and she has drained 3 liters of fluid. PAST MEDICAL HISTORY: Significant for chronic kidney disease, hypertension, gastroesophageal reflux disease. Previous surgeries are as stated above. She has had previous ureterostomy and ileal conduit procedure. She has had previous hospitalizations with intestinal obstruction. FAMILY HISTORY: Noncontributory. SOCIAL HISTORY: The patient does not smoke cigarettes or drink alcohol. REVIEW OF SYSTEMS: As stated above. ALLERGIES: SHE HAS ALLERGY TO PENICILLIN. MEDICATIONS: Listed in the chart. PHYSICAL EXAMINATION GENERAL: The patient is awake and alert. VITALS: She has been tachycardic today. Her blood pressure has been normal, however. HEENT: No scleral icterus. NECK: No masses. LUNGS: Equal breath sounds are clear bilaterally. CARDIAC: Regular rate and rhythm. ABDOMEN: Very distended with a large hernia in the lower abdomen but no tenderness. The hernia is not reducible. EXTREMITIES: No edema. LAB TESTS: White blood cell count last checked was 9.6. Hemoglobin and hematocrit are normal. Chemistries reveal elevated BUN and creatinine at 68 and 4.18. ASSESSMENT: A 77-year-old female with small-bowel obstruction or intestinal obstruction likely due to adhesions with associated large hernia, although I do not think the hernia is the likely cause as the obstruction does not appear to be incarcerated and has a very wide mouth. Patient had a nephrostomy placed today. However, it is also possible that the adhesions and obstruction are obstructing the ileal conduit. If this patient does not improve, she may need repair of the hernia with lysis of adhesions to relieve the ileal conduit and the intestinal obstruction. There are no definite signs of ischemic bowel at this time. No signs of peritonitis. Thank you for asking me to see Ms. Pena. Job#: [id number]
--- NOTE | 2018-02-12 14:50 | NUR ---
Dr. Dockery from scientific laboratory supervisor rounded on patient. Notified him of the urine culture Dr. Estrada ordered.
[2018-02-12] MEDS ORDERED: MIDAZOLAM HCL 2 MG/2 ML VIAL ONE (15:12)
[2018-02-12] MEDS ORDERED: FENTANYL CITRATE/PF 100MCG/2 ML INJ ONE (15:13)
--- NOTE | 2018-02-12 15:40 | NUR ---
PATIENT OFF THE UNIT FOR PROCEDURE.
--- NOTE | 2018-02-12 16:53 | NUR ---
PATIENT BACK TO THE ROOM FROM PROCEDURE.
--- NOTE | 2018-02-12 19:00 | NUR ---
REPORT GIVEN TO ONCOMING NURSE PATIENT IS RESTING IN BED. RESPIRATIONS EVEN AND UNLABORED, NO ACUTE DISTRESS NOTED. CALL LIGHT WITHIN REACH. BED IN THE LOWEST POSITION. BED ALARM ON.
[2018-02-12] MEDS ORDERED: SODIUM CHLORIDE 0.9% 1000ML 1,000 ML IV STA (19:07)
--- NOTE | 2018-02-12 19:25 | NUR ---
PT IS RESTING IN BED. NO RESPIRATORY DISTRESS NOTED. BED IN THE LOWEST POSITION, LOCKED, BED ALARM ON, AND CALL LIGHT WITHIN REACH. WILL CONTINUE TO MONITOR.
--- NOTE | 2018-02-12 20:11 | Consultation ---
DATE OF CONSULTATION: February 12, 2018 HISTORY OF PRESENT ILLNESS: This is a delightful 77-year-old female prior history of pancreatitis, who required Whipple procedure approximately 1-1/2 to 2 years ago at [facility]. Presented with nausea vomiting. Has been admitted. Renal has been consulted for management of electrolyte and fluid balance and abnormal kidney function. She has had multiple abdominal surgeries in the past, history of right hydronephrosis, urinary tract infection, prior ileal conduit with stone on the right lower quadrant, history of chronic kidney disease, hypertension. ALLERGIES: SHE IS ALLERGIC TO PENICILLIN. SOCIAL HISTORY: Patient does not smoke or drink. FAMILY HISTORY: Significant for DICTATION CANCELLED (01:21) Job#: [id number] CQ
[2018-02-12] MEDS: ZOLPIDEM TARTRATE 5 MG TAB PO SCH ×2 (21:37)
[2018-02-12] MEDS: TRAZODONE HCL 50 MG TAB PO SCH ×2 (21:38)
[2018-02-13] VITALS (47 sets, daily range): BP systolic 83–154; BP diastolic 42–73
[2018-02-13] MEDS: TRAMADOL HCL 50 MG TAB PO SCH ×5 (00:51→23:00)
[2018-02-13] MEDS: SODIUM BICARBONATE 8.4% SYRING 150 ML in DEXTROSE 5% 1,000 ML IV SCH ×3 (03:25→17:31)
[2018-02-13] MEDS: AZTREONAM 1 GM/NS 50 ML 50 ML IV SCH ×2 (04:19→17:49)
[2018-02-13 06:15] LABS: BASOPHILS % 0.3 % (0.0-1.0); EOSINOPHILS # (AUTO) 0.1 (0.0-0.4); EOSINOPHILS % 0.5 % (0.0-6.0); HEMATOCRIT 26.5 % (34.2-44.1); HEMOGLOBIN 8.6 g/dL (12.0-16.0); LYMPHOCYTES % 19.9 % (18.0-39.1); MEAN CORPUSCULAR HGB CONC 32.5 g/dL (31-35); MEAN CORPUSCULAR VOLUME 101.5 fL (81-99); MONOCYTES # (AUTO) 0.9 (0.2-0.8); MONOCYTES % 8.9 % (4.4-11.3); NEUTROPHILS % 69.8 % (38.7-80.0); PLATELET COUNT 297 x10e3/uL (140-360); RED BLOOD COUNT 2.61 x10e6/uL (3.6-5.1); RED CELL DISTRIBUTION WIDTH 13.6 % (11.7-14.4)
--- NOTE | 2018-02-13 06:26 | Diagnostic Imaging Report ---
ABDOMEN-1VIEW (KUB) Clinical history: Small bowel obstruction Technique: AP view abdomen Comparison: CT 02/11/2018 Findings: Limited by portable technique and motion. Portion of the right lateral hernia is incompletely imaged. Persistent dilated loops of bowel are seen primarily in the right lower quadrant. Neurostimulator device, right PCN, left nephrolithiasis, and pelvic clips are seen. Impression: Persistent findings of small bowel obstruction. Signed by: Dr Denisse Bee MD on 02/13/2018 6:23 AM
[2018-02-13 06:38] LABS: ALBUMIN 1.7 g/dL (3.5-5.0); ALBUMIN/GLOBULIN RATIO 0.4 (0.8-2.0); ANION GAP 19.6 mmol/L (8-16); CALCIUM 8.8 mg/dL (8.4-10.2); CREATININE, SERUM 4.91 mg/dL (0.57-1.11); MAGNESIUM 1.5 MG/DL (1.3-2.1); PHOSPHORUS 4.6 MG/DL (2.3-4.7); POTASSIUM 3.6 mmol/L (3.5-5.1)
--- NOTE | 2018-02-13 07:22 | NUR ---
RECEIVED PATIENT RESTING IN BED. NO S/S OF DISTRESS NOTED. DAUGHTER AT BEDSIDE. CALL LIGHT WITHIN REACH. BED IN THE LOWEST POSITION.
--- NOTE | 2018-02-13 09:14 | NUR ---
PAGED DR. CABAN IN REGARDS TO ORDER FOR SODIUM CHLORIDE STAT FROM LAST NIGHT.
[2018-02-13] MEDS: METOPROLOL TARTRATE 50 MG TAB PO SCH ×2 (09:41→17:00)
[2018-02-13] MEDS: OMEGA 3 POLYUNSAT FATTY ACIDS 1000 MG SOFTGEL PO SCH ×2 (09:41→17:00)
[2018-02-13] MEDS: SODIUM BICARBONATE 650 MG TAB PO SCH ×3 (09:42→22:45)
[2018-02-13] MEDS: NIFEDIPINE CR 30 MG TAB PO SCH (09:42)
--- NOTE | 2018-02-13 09:49 | NUR ---
IRRIGATED RIGHT NEPHROSTOMY ORDERED BY DR. HOANG.
--- NOTE | 2018-02-13 11:28 | Diagnostic Imaging Report ---
Exam: Image guided right nephrostomy tube placement. History: Patient with a large anterior abdominal wall hernia and right hydronephrosis. She is unable to lay on her stomach for conventional fluoroscopic nephrostomy. Comparison: 02/11/2018 CT scan of the abdomen and pelvis Medication: Patient received 25 mcg of Fentanyl for pain. She was continuously monitored during the procedure. DLP: 2294.55 mGy-cm Findings: Utilizing CT guidance the right flank was prepped and draped in usual fashion. Local anesthesia with 1% Xylocaine was accomplished. An 18-gauge 15 cm long Chiba needle was then placed through the renal cortex into the dilated renal collecting system. Aspiration of 10 cc of purulent urine was obtained and sent to the laboratory for culture and sensitivity. A 0.035 " Amplatz superstiff wire was then placed through the needle. Dilatation with a 9 Belarusian dilator was accomplished and an 8 Bel[place]ian [place] loop locking pigtail nephrostomy catheter was advanced into the renal pelvis. Multiple images during the progression of the procedure were performed to evaluate needle position, wire position and subsequent catheter placement. Patient tolerated procedure well. Following placement of the catheter another 30 cc of purulent urine was aspirated. The catheter was secured to the skin and placed to a drainage bag. Impression: Successful CT-guided right nephrostomy catheter placement. Signed by: Dr. Lance Dockery DO on 02/13/2018 11:25 AM
--- NOTE | 2018-02-13 11:38 | NUR ---
TECH GOT BP OF 93/46, REASSESSED MANUALLY AND IS 108/56.
[2018-02-13] MEDS ORDERED: SODIUM CHLORIDE 0.9% 1000ML 1,000 ML ONE (13:37)
[2018-02-13] MEDS ORDERED: VANCOMYCIN 1GM/NS 250 ML 250 ML ONE (13:37)
[2018-02-13] MEDS ORDERED: ROCURONIUM BROMIDE 1 ML ONE (13:47)
[2018-02-13] MEDS ORDERED: FENTANYL CITRATE INJ 2,000 MCG in SODIUM CHLORIDE 0.9% 250ML 210 ML IV SCH (14:00)
--- NOTE | 2018-02-13 14:08 | NUR ---
ASSESSMENT: Spiritual Distress Pt's family anxious about pt's illness. Pt's and daughter expressed emotions thru words and tears. Intervention: Provided empathic listening and calming pastoral presence. Provided prayer. Provided business card and information on how to reach pin inserter, if needed. Outcome: Pt's family expressed appreciation for support. Will follow as able. JAZMIN SMITH Auto Wheel Alignment Specialist Spiritual Care Department O: [phone] Pager: [phone] ([phone] number calling from)
--- NOTE | 2018-02-13 14:15 | NUR ---
AROUND 1300 NURSE NOTIFIED DOLL WIG HACKLER THAT PATIENT IS NOT LOOKING GOOD. PATIENT TEMP NOTED 96.9, BP 108/56, HR 75, NO ACUTE DISTRESS NOTED. 1335 CODE SEPSIS CALLED AROUND THIS TIME, SEE CODE SHEET FOR DETAILS, PATIENT WILL BE TRANSFERRED TO ICU, FAMILY AT BEDSIDE WHEN CODE CALLED. FAMILY NOTIFIED OF PATIENT'S SITUATION. 1405 REPORT GIVEN TO ICU NURSE BURT MOSS. 1415 PATIENT TRANSPORTED TO ROOM ICU 194. FAMILY NOTIFIED THAT PATIENT WAS MOVED.
[2018-02-13] MEDS ORDERED: SODIUM CHLORIDE 0.9% 1000ML 2,000 ML ONE (14:35)
--- NOTE | 2018-02-13 15:01 | Diagnostic Imaging Report ---
ADDENDUM #1 Addendum: Findings were also discussed in person with Dr. Ayala of the emergency center at 3:15 PM. Signed by: Dr. Anthony Dickey M.D. on 02/13/2018 3:25 PM ORIGINAL REPORT Examination: Single AP view of the chest. COMPARISON: 03/30/2015 INDICATION: Cough, intubation, central line DISCUSSION: Endotracheal tube is noted, with the tip projecting approximate 5 cm above the nano. Right internal jugular central venous catheter tip projects over the expected region of the mid superior vena cava. Right pneumothorax with air gap 1.7 cm. Left lung is grossly clear with minimal patchy opacity in the lung base. When accounting for differences in technique, stable cardiomediastinal contour compared to 03/30/2015, with tortuous and likely ectatic thoracic aorta. No acute osseous abnormalities. IMPRESSION: Interval intubation and placement of a right internal jugular central venous catheter, addition as described. Small right apical pneumothorax, air gap 1.7 cm. Patchy bibasilar airspace opacities, likely atelectasis. Tortuous and likely ectatic thoracic aorta. This may be further evaluated by CT angiography of the chest on a nonemergent basis. Presence of right apical pneumothorax was communicated to RN Ms. Trivedi of the ICU at 2:50 PM 02/13/2018. She verbalized understanding and agreed to communicate the finding to Dr. Woody. Signed by: Dr. Anthony Dickey M.D. on 02/13/2018 2:58 PM
--- NOTE | 2018-02-13 15:08 | NUR ---
Patient was transferred to ICU. Code sepsis called. Due to transferred to higher level of care, will need new PT orders to resume therapy. Addendum: 02/13/18 at 1508 by LORRAINE ACEVES PT Amended: Links added.
[2018-02-13 16:25] LABS: ALBUMIN 1.4 g/dL (3.5-5.0); ALBUMIN/GLOBULIN RATIO 0.4 (0.8-2.0); CALCIUM 7.5 mg/dL (8.4-10.2); CREATININE, SERUM 4.38 mg/dL (0.57-1.11); MAGNESIUM 1.2 MG/DL (1.3-2.1); PHOSPHORUS 3.9 MG/DL (2.3-4.7)
--- NOTE | 2018-02-13 16:34 | NUR ---
Nutrition Screen Note RD Recommendation for Physician: -Advance to GI soft as medically appropriate -Encourage PO and hydration -If PO <50%, consider Ensure compact BID -Consult RD if nutrition status changed Plan of Care: RD following, monitoring for tolerance and adequacy Nutrition reason for involvement: LOS Primary Diagnose(s): small-bowel obstruction or intestinal obstruction likely due to adhesions with associated large hernia, acute renal failure PMH: Chronic kidney disease, ureterostomy/ileal conduit obstruction, recurrent urinary tract infection, HTN, insomnia, reflux, L renal atrophy, CKD, pancreatitis Ht: 64in Wt: 183lb BMI: 31.4kg/m2 IBW: 120lb RD Assessment: (02/13) Chart reviewed. Labs and meds reviewed. 77 yo F, who is admitted for abdominal pain. R nephrostomy catheter placed today. Positive urine culture. Visited pt in the room. Family on bedside provided info. NGT on suction, still draining dark fluids. 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 Family doesnt suspect any recent weight loss with stable weight ~175lb. Pt was able to chew and swallow without any issue at home. Code sepsis was called shortly after I left the room. Pt was transferred to ICU 194. Will continue to monitor and follow. Current Diet: NPO Malnutrition Evaluation (02/13) The patient does not meet criteria for a specified degree of malnutrition at this time. Will re-evaluate at follow-up as appropriate. Energy intake: <75% of estimated energy requirements for >7 days Weight loss: None per family. No physical sign of malnutrition upon observation, with BMI of 31.4kg/m2. Diet Education Needs Assessment: Diet education not indicated. Nutrition Care Level: low Signed: Leeann Mariee, , RD, LD Addendum: 02/13/18 at 1636 by Leeann Mariee DIET Nutrition care level:high (sepsis, NPO/clear x 5days, <75% of est energy requirements for > 7 days)
--- NOTE | 2018-02-13 16:44 | NUR ---
patient transferred to icu room 194 from floor. code sepsis called which initiated the transfer to icu. 2L total given to patient iv bolus per sepsis protocol. held last 500ml of fluid per Dr. Woody and Dr. Leonard's orders. per Dr. Leonard, restart bicarb per current rate. dr. marquis consulted and at bedside with patient. new orders obtained. Addendum: 02/13/18 at 1751 by Elham Chanel RN Dr. Leonard at bedside and evaluated patient. okay to give rest of fluid needed for sepsis protocol.
[2018-02-13] MEDS: NOREPINEPHRINE 8 MG/D5W 250 ML 250 ML IV SCH (16:45)
--- NOTE | 2018-02-13 17:01 | Diagnostic Imaging Report ---
Examination: Single AP view of the chest. COMPARISON: 02/13/2018 at 1423 INDICATION: Follow-up pneumothorax DISCUSSION: See impression IMPRESSION: 1. The patient is substantially rotated to the right. Endotracheal tube and right internal jugular central venous catheter are stable in position. 2. Small right apical pneumothorax has not significantly changed in size when accounting for differences in technique and patient positioning, with air gap approximately 1.6 cm. 3. Stable bibasilar airspace opacities, likely atelectasis, though aspiration is an additional consideration. Signed by: Dr. Anthony Dickey M.D. on 02/13/2018 4:57 PM
[2018-02-13 17:05] LABS: ABG HCO3 21 mmol/L (23-28); ABG PCO2 37 mmHg (41-51); ABG PH 7.36 (7.31-7.41); ABG PO2 171 mmHg (80-105)
--- NOTE | 2018-02-13 17:19 | Consultation ---
DATE OF CONSULTATION: February 13, 2018 PULMONARY CONSULTATION Patient of Dr. Woody, Dr. Marvin, Dr. Estrada, Dr. Leonard. HISTORY: Patient is a 77-year-old woman admitted to the hospital on 02/06, abdominal and back pain and fever at home, history of chronic right hydronephrosis, neurogenic bladder, the ileal conduit for apparently nonfunctioning bladder, history of renal stones, right nephrostomy was placed on the . She was also found to have small-bowel obstruction and some vomiting yesterday, but no history of aspiration. at [place]. Nonsmoker. No alcohol. 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 She has had multiple pelvic procedures. ALLERGIES: SHE IS ALLERGIC TO PENICILLIN. Apparently, was confused and febrile to 101 today and was intubated because of altered mental status. Currently, seen in ICU. History was obtained from family and chart. She was intubated with a small endotracheal tube. PHYSICAL EXAMINATION VITALS: Temperature is reported to 101 rectally. Pulse 91. Respirations 14. Blood pressure 91/47 while being sedated. LUNGS: Few rhonchi. Breath sounds are equal bilaterally. HEART: Regular rhythm. ABDOMEN: Large ventral hernia, ileal conduit draining, right nephrostomy draining. There is evidence of progressive renal failure, and metabolic acidosis. LAB: BUN is 71, creatinine 4.9, bicarbonate 16. He is malnourished with albumin of 1.7. Anemia of hemoglobin of 8.6, macrocytic indices. PLAN: Continue mechanical ventilator support. Will ask Anesthesia to change the endotracheal tube at their convenience. Electrolytes as per Dr. Leonard. Patient, apparently, has had hypercalcemia in the past. Elevated uric acid has been noted. TSH is normal. Last checked is 20. Will continue mechanical ventilator support and broad-spectrum antibiotics to include streptococcal coverage, which is growing from the urine. Thank you for this kind referral. Job#: [id number] CQ
[2018-02-13] MEDS ORDERED: MAGNESIUM SULFATE 2GM/50ML 50 ML IV ONE (17:30)
[2018-02-13] MEDS ORDERED: SODIUM CHLORIDE 0.9% 250ML 250 ML ONE (17:49)
[2018-02-13] MEDS ORDERED: POTASSIUM CHLORIDE 20MEQ/100ML 200 ML IV ONE (18:00)
[2018-02-13 18:14] LABS: FOLATE 4.1 ng/mL (7.0-15.4)
[2018-02-13] MEDS ORDERED: MEROPENEM 1GRAM 1 GM in SODIUM CHLORIDE 0.9% 100 ML 100 ML IV SCH (18:30)
[2018-02-13] MEDS ORDERED: ETOMIDATE 2 MG/ML 10 ML INJ IV ONE (18:55)
[2018-02-13] MEDS: MIDAZOLAM HCL 25 MG in SODIUM CHLORIDE 0.9% 50ML 45 ML IV PRN (19:00)
--- NOTE | 2018-02-13 20:55 | Diagnostic Imaging Report ---
Examination: Single AP view of the chest. COMPARISON: 02/13/2018 at 1645 hours INDICATION: Follow-up pneumothorax DISCUSSION: See impression IMPRESSION: No significant interval change. 1. The patient is again rotated to the right. Endotracheal tube and right internal jugular central venous catheter are unchanged in position. 2. Small right apical pneumothorax has not significantly changed in size when accounting for differences in technique and patient positioning, with air gap approximately 1.6 cm. 3. Bibasilar subsegmental atelectasis. Signed by: Dr. Rajwinder Charles M.D. on 02/13/2018 8:52 PM
[2018-02-13] MEDS ORDERED: TRAZODONE HCL 50 MG TAB PO SCH (21:00)
[2018-02-13 21:06] LABS: FREE THYROXINE INDEX 2.0437 (1.4-3.8); THYROID STIMULATING HORMONE 0.766 uIU/mL (0.350-4.940)
[2018-02-13] MEDS: MEROPENEM 1 GM VIAL IV SCH (22:10)
[2018-02-13] MEDS: HEPARIN SOD (PORCINE) 5,000 UNIT/ML VIAL SC SCH (22:45)
[2018-02-14] VITALS (120 sets, daily range): BP systolic 84–127; BP diastolic 35–77
[2018-02-14] MEDS: MIDAZOLAM HCL 25 MG in SODIUM CHLORIDE 0.9% 50ML 45 ML IV PRN ×3 (01:37→13:52)
[2018-02-14] MEDS: SODIUM BICARBONATE 8.4% SYRING 150 ML in DEXTROSE 5% 1,000 ML IV SCH ×2 (04:25→11:11)
[2018-02-14 05:12] LABS: HEMATOCRIT 24.9 % (34.2-44.1); HEMOGLOBIN 8.1 g/dL (12.0-16.0); INR 1.28; MEAN CORPUSCULAR HEMOGLOBIN 32.8 pg (28-32); MEAN CORPUSCULAR HGB CONC 32.5 g/dL (31-35); MEAN CORPUSCULAR VOLUME 100.8 fL (81-99); PLATELET COUNT 265 x10e3/uL (140-360); PROTHROMBIN TIME 17.1 seconds (11.9-14.5); RED BLOOD COUNT 2.47 x10e6/uL (3.6-5.1); RED CELL DISTRIBUTION WIDTH 13.3 % (11.7-14.4)
[2018-02-14 05:13] LABS: PARTIAL THROMBOPLASTIN TIME 40.5 seconds (23.8-35.5)
[2018-02-14 05:21] LABS: ALBUMIN 1.3 g/dL (3.5-5.0); ALBUMIN/GLOBULIN RATIO 0.4 (0.8-2.0); ANION GAP 16.6 mmol/L (8-16); CALCIUM 7.7 mg/dL (8.4-10.2); CREATININE, SERUM 4.22 mg/dL (0.57-1.11); POTASSIUM 3.6 mmol/L (3.5-5.1)
[2018-02-14 05:43] LABS: MAGNESIUM 1.9 MG/DL (1.3-2.1); PHOSPHORUS 3.1 MG/DL (2.3-4.7)
--- NOTE | 2018-02-14 05:45 | Diagnostic Imaging Report ---
ABDOMEN-1VIEW (KUB) Clinical history: Small bowel obstruction Technique: AP view abdomen Comparison: 02/13/2018 Findings: Limited by portable technique and motion. Portion of the right lateral hernia is incompletely imaged. NG tube tip seen overlying the mid abdomen. Decreased gas-filled small bowel loops. Gaseous distention of the right colon and transverse colon noted. Neurostimulator device, right PCN, left nephrolithiasis, prior hernia repair and pelvic clips are seen. Impression: Decreased gas-filled dilation of small bowel loops. Signed by: Dr Denisse Bee MD on 02/14/2018 5:42 AM
--- NOTE | 2018-02-14 05:48 | Diagnostic Imaging Report ---
CHEST SINGLE (PORTABLE), 02/14/2018 7:00 AM Technique: CHEST SINGLE (PORTABLE) Comparison: 02/13/2018 Clinical history: Intubated Findings: Limited by portable technique and rotation. Stable visualized rotated, enlarged cardiomediastinal silhouette and appearance of the lungs. Near resolved right pneumothorax. Impression: 1. Lines/Tubes: Stable ET tube about 5.6 cm above the nano and right IJ central venous catheter over the SVC. 2. Near resolved right pneumothorax. Signed by: Dr Denisse Bee MD on 02/14/2018 5:45 AM
[2018-02-14] MEDS: MEROPENEM 1 GM VIAL IV SCH (05:50)
[2018-02-14] MEDS: TRAMADOL HCL 50 MG TAB PO SCH ×4 (06:00→23:34)
[2018-02-14] MEDS: NOREPINEPHRINE 8 MG/D5W 250 ML 250 ML IV SCH (06:41)
--- NOTE | 2018-02-14 08:00 | NUR ---
dr snyder rounded, not going to operate on hernia at this time. wants to continue ngt to suction.
[2018-02-14 08:11] LABS: BAND NEUTROPHILS % (MANUAL) 6 %; EOSINOPHILS % (MANUAL) 1 % (0-7); LYMPHOCYTES % (MANUAL) 11 % (19-48); MONOCYTES % (MANUAL) 11 % (3.4-9.0); NEUTROPHILS % (MANUAL) 71 % (40-74)
[2018-02-14 08:12] LABS: ANISOCYTOSIS S; PLATELET MORPHOLOGY COMMENT NORMAL; RBC MORPHOLOGY COMMENT ABNORMAL
[2018-02-14 08:13] LABS: PLATELET ESTIMATE ADEQUATE
--- NOTE | 2018-02-14 08:34 | NUR ---
dr. marquis rounded, wants ett tube changed to a 7.5, anesthesia notified and they will come change it. respiratory box at bedside.
--- NOTE | 2018-02-14 09:20 | NUR ---
Dr. Beltrán, anesthesiologist, changed ETT from 6 to a 7.5 19 cm at the lip.
[2018-02-14] MEDS: PANTOPRAZOLE 40 MG 10ML VIAL IV SCH (10:01)
[2018-02-14] MEDS: SODIUM BICARBONATE 650 MG TAB PO SCH ×3 (10:01→20:52)
[2018-02-14] MEDS: OMEGA 3 POLYUNSAT FATTY ACIDS 1000 MG SOFTGEL PO SCH (10:01)
[2018-02-14] MEDS: HEPARIN SOD (PORCINE) 5,000 UNIT/ML VIAL SC SCH ×2 (10:02→20:53)
[2018-02-14] MEDS ORDERED: SODIUM CHLORIDE 0.9% 1000ML 1,000 ML ONE (10:16)
--- NOTE | 2018-02-14 10:20 | NUR ---
Pt sleeping soundly and no family present. [employer] left a card describing availability of roustabout hand and instructions on how to contact a roustabout hand. JAZMIN SMITH [employer] Spiritual Care Department O: [phone] Pager: [phone] ([phone] number calling from)
[2018-02-14] MEDS: METOPROLOL TARTRATE 50 MG TAB PO SCH ×2 (10:32→18:08)
[2018-02-14] MEDS ORDERED: ALBUMIN 5% 0.05 GM/ML BTL IV ONE (10:45)
[2018-02-14] MEDS: ALBUMIN 5% 0.05 GM/ML BTL IV SCH ×2 (10:57→13:44)
--- NOTE | 2018-02-14 11:02 | NUR ---
0930 Rec'd patient, ETT recently been changed. Fentanyl gtt, Versed gtt, Levophed at 2.5 mcg/min. 101.[address] Gutiérrez to bedside and requests CVP monitoring. 1015 CVP= 9. Dr Leonard to bedside and orders rec'd. Dr Woody to bedside and conversing with patient's daughter and son-in-law.
[2018-02-14 11:28] LABS: ABG HCO3 26 mmol/L (23-28); ABG PCO2 37 mmHg (41-51); ABG PH 7.47 (7.31-7.41); ABG PO2 86 mmHg (80-105)
[2018-02-14] MEDS ORDERED: CEFTRIAXONE SOD 1 GM VIAL IV SCH (13:30)
[2018-02-14] MEDS: CEFTRIAXONE SOD 2 GM VIAL IV SCH (13:56)
[2018-02-14] MEDS: METRONIDAZOLE 500MG/NS 100ML 100 ML IV SCH ×2 (13:56→21:09)
--- NOTE | 2018-02-14 14:16 | Consultation ---
DATE OF CONSULTATION: February 13, 2018 REASON FOR CONSULTATION: Sepsis, septic shock. HISTORY OF PRESENT ILLNESS: This patient is a 77-year-old white female with history of urostomy, history of extensive abdominal and pelvic surgery before. Comes in with abdominal pain on the right side where she had the urostomy. In the emergency room she had hydronephrosis with infection. 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 Patient was started on antibiotics. She was admitted. The patient has history of chronic kidney disease, history of urostomy, recurrent UTI, hypertension, insomnia, left renal atrophy, reflux disease, chronic kidney disease. The patient was admitted. She was seen by renal. PAST MEDICAL HISTORY: As above. PAST SURGICAL HISTORY: As above. ALLERGIES: PENICILLIN, BUT THE FAMILY IS NOT SO SURE WHAT TYPE OF PENICILLIN. THE PATIENT DID WELL WITH CEPHALOSPORIN. SOCIAL HISTORY: Does not smoke, no drug abuse, no alcohol abuse. FAMILY HISTORY: Noncontributory. REVIEW OF SYSTEMS: Could not be obtained. The patient was admitted. The patient when she first came had fever and she was confused. Had to be intubated. The patient was admitted on February 07 and I was asked to see her today on February 13. Since she came here, her urine culture showed Streptococcus species. Her blood culture is still pending. LABORATORY DATA: Her white count 8.02. Hemoglobin 11.1 on admission and today is 8.22, and hemoglobin 8.1. Sodium 137, potassium 3.6 and creatinine 4.22. She did have a CAT scan on February 11 as well as on February 06. CAT scan on February 11 showed she had small bowel obstruction with transition in the right lower aspect of the large complex hernia. Patient was seen by Dr. Mcdowell who recommended clinical observation. Patient was on vasopressors and she was on antibiotic. The patient was originally on Azactam and then she was given meropenem and infectious disease was consulted today. When I saw the patient, the family was at the bedside, and she looks intubated and sedated and comfortable. Her vitals seemed to be stable for the time. No fever. Heart rate 86, blood pressure is 96/46, but she is off vasopressor at the time. PHYSICAL EXAMINATION: GENERAL: She is intubated and sedated. VITALS: Stable. Afebrile. HEENT: Normocephalic. NECK: Supple. CHEST: Few crackles at bases. COR: S1 and S2. No murmur. ABDOMEN: Soft. Bowel sounds present. EXTREMITIES: No edema. SKIN: No rash. IMPRESSION: Sepsis. Septic shock present on admission. Source probably was a small bowel obstruction which I think by clinical examination today to me seems to have resolved. Her abdomen is totally soft and her bowel sounds are a little bit hyperactive. RECOMMENDATIONS: I suggest to change antibiotic to Rocephin and Flagyl due to her pathogen in her cultures and her clinical status. I would also continue the same for now and supportive care. I would also hold off on CT because I think clinically she looks better will follow with you. Discussed with Dr. Woody and discussed with the family. Thank you for asking me to see this patient. Job#: [id number]
--- NOTE | 2018-02-14 14:20 | NUR ---
Dr Salazar to bedside; orders rec'd. Family updated on patient condition and plan of care.
--- NOTE | 2018-02-14 19:00 | NUR ---
Bedside report received from Daniela Valdovinos RN. Pt received resting in bed with eyes closed, HOB elevated 30 degrees with a pillow to head/neck, bilateral arms, elbows, pink heel protectors in use, glide sheet and turning wedge system in use, alternating pressure mattress in use, wound care is following the pt per electronic record/order, ETT 7.5 20cm at the lip to vent per md orders, bed in lowest and locked position, call light in reach of the pt, restraints wdp per md orders, room cleaned/straightened up at this time.
[2018-02-15] VITALS (107 sets, daily range): BP systolic 99–164; BP diastolic 46–79
[2018-02-15] MEDS: MIDAZOLAM HCL 25 MG in SODIUM CHLORIDE 0.9% 50ML 45 ML IV PRN ×2 (01:33→05:19)
[2018-02-15] MEDS: TRAMADOL HCL 50 MG TAB PO SCH ×4 (04:50→23:17)
[2018-02-15] MEDS: SODIUM BICARBONATE 8.4% SYRING 150 ML in DEXTROSE 5% 1,000 ML IV SCH (05:18)
[2018-02-15] MEDS: METRONIDAZOLE 500MG/NS 100ML 100 ML IV SCH ×3 (05:18→21:17)
[2018-02-15] MEDS: FENTANYL CITRATE INJ 2,000 MCG in SODIUM CHLORIDE 0.9% 250ML 210 ML IV PRN (05:19)
[2018-02-15 05:47] LABS: BASOPHILS % 0.4 % (0.0-1.0); EOSINOPHILS # (AUTO) 0.1 (0.0-0.4); EOSINOPHILS % 1.4 % (0.0-6.0); HEMOGLOBIN 7.3 g/dL (12.0-16.0); LYMPHOCYTES # (AUTO) 1.2 (1.0-3.2); LYMPHOCYTES % 20.5 % (18.0-39.1); MEAN CORPUSCULAR HGB CONC 32.7 g/dL (31-35); MEAN CORPUSCULAR VOLUME 100.9 fL (81-99); MONOCYTES # (AUTO) 0.5 (0.2-0.8); MONOCYTES % 9.2 % (4.4-11.3); NEUTROPHILS # (AUTO) 3.8 (2.1-6.9); NEUTROPHILS % 66.6 % (38.7-80.0); PLATELET COUNT 225 x10e3/uL (140-360); RED BLOOD COUNT 2.21 x10e6/uL (3.6-5.1); RED CELL DISTRIBUTION WIDTH 13.2 % (11.7-14.4)
--- NOTE | 2018-02-15 05:48 | Diagnostic Imaging Report ---
CHEST SINGLE (PORTABLE), 02/15/2018 7:00 AM Technique: CHEST SINGLE (PORTABLE) Comparison: Previous day Clinical history: Intubated Findings: Limited by portable technique and rotation. Stable visualized enlarged cardiomediastinal silhouette and appearance of the lungs with bibasilar atelectasis or consolidation and small effusions. Impression: 1. Lines/Tubes: Tube is no longer seen. Stable right IJ central venous catheter over the SVC, subdiaphragmatic NG tube. 2. Artifact overlies the right lung apex. Probable tiny right apical pneumothorax. Signed by: Dr Denisse Bee MD on 02/15/2018 5:44 AM
[2018-02-15 05:53] LABS: HEMATOCRIT 22.3 % (34.2-44.1)
[2018-02-15 06:14] LABS: ALBUMIN 1.5 g/dL (3.5-5.0); ALBUMIN/GLOBULIN RATIO 0.5 (0.8-2.0); ANION GAP 18.3 mmol/L (8-16); CALCIUM 7.7 mg/dL (8.4-10.2); CREATININE, SERUM 3.71 mg/dL (0.57-1.11); MAGNESIUM 1.6 MG/DL (1.3-2.1); PHOSPHORUS 3.1 MG/DL (2.3-4.7); POTASSIUM 3.3 mmol/L (3.5-5.1)
--- NOTE | 2018-02-15 06:45 | NUR ---
Paged Dr. Kinjal Leonard for potassium level 3.3, Hgb 7.3, HCT 22.3. Currently awaiting return call from Dr. Melgar (demetrio LOJA).
[2018-02-15] MEDS ORDERED: POTASSIUM CHLORIDE 10MEQ/100ML 100 ML IV ONE (07:00)
--- NOTE | 2018-02-15 07:00 | NUR ---
Bedside report given to Daniela Valdovinos RN.
--- NOTE | 2018-02-15 08:50 | Diagnostic Imaging Report ---
EXAM: CT ABDOMEN/PELVIS WO DATE: 02/14/2018 4:45 PM INDICATION: ^sbo/resp failure ^[id number] ^1732 COMPARISON: None FINDINGS: Please see CT chest. IMPRESSION: As above. Signed by: Dr. Herbert Fink MD on 02/15/2018 8:47 AM
--- NOTE | 2018-02-15 08:50 | Diagnostic Imaging Report ---
EXAM: CT Chest, Abdomen and Pelvis WITHOUT contrast INDICATION: Shortness of breath, small bowel obstruction COMPARISON: None. TECHNIQUE: Chest, Abdomen and Pelvis was scanned utilizing a multidetector helical scanner without the use of IV contrast. Coronal and sagittal reformations were obtained. Reformatted axial MIP images were obtained and reviewed. IV CONTRAST: None COMPLICATIONS: None RADIATION DOSE: Total DLP: 1332 mGy*cm Estimated effective dose: (DLP x 0.015 x size factor) mSv CTDIvol has been reviewed. It is below the limits set by the Radiation Protocol Committee (RPC). Appropriate CT dose reduction techniques were utilized. FINDINGS: Chest: Lower Neck: There is what appears to be an ET tube terminating in the inferior oropharynx. Gastric catheter extends into the stomach. Right IJ catheter terminates in SVC. Heart and Great Vessels: The aorta and main pulmonary artery measure 33 and 27 mm. respectively. No significant pericardial effusion. Moderate coronary vascular calcifications. Heart is somewhat to the right of midline, with grossly normal anatomy otherwise within limitations of nonenhanced exam. Lymph Nodes: Limited given lack of IV contrast. Small mediastinal lymph nodes not distinctly enlarged. Lungs: Small bilateral pleural effusions. Dense areas of consolidation in the lung bases incompletely evaluated given lack of IV contrast. Small pneumothorax present anteriorly on the right. Trachea and central bronchi grossly unremarkable. Abdomen: Solid Organs: Lack of IV contrast and motion limits evaluation. Cholecystectomy clips are present. There is a trace amount of fluid present about the liver. Splenic granulomata are present. There is a percutaneous nephrostomy tube on the right. Adrenal glands, spleen, and pancreas grossly unremarkable. Left kidney is atrophic with large calcifications, largest 30 mm. 13 mm calcification renal pelvis/proximal left ureter. Distal ureters cannot be traced. Upper GI Tract: Decompressed stomach limits evaluation. No distinct small bowel obstructive changes. Vascularity: Advanced aortic vascular calcifications with no aneurysm. Lymph Nodes: Suboptimally evaluated. Other: Large ventral hernia to the right of midline lower abdomen with numerous loops of small and large bowel present. Extensive postsurgical changes present likely representing cystectomy and diverting ileostomy. Pelvis: Bladder: Not definitely visualized. See above. Surgical clips pelvis. Other: Small amount of free fluid present pelvis. Colon: No definite acute findings. Proximal colon not well evaluated due to large hernia. Right hemicolectomy changes possible. Bones: Degenerative changes. IMPRESSION: 1. What appears to be ET tube is in the oropharynx and needs to be advanced and followed up with radiographs. 2. Small right pneumothorax. 3. Dense areas of consolidation in the lung bases incompletely evaluated given lack of IV contrast. Findings could represent atelectasis, aspiration, and/or pneumonia. 4. Extensive postsurgical changes in the abdomen as above. Correlation with surgical history recommended as . 5. Large calculi in atrophic left kidney. 6. Large ventral hernia inferior abdomen to the right of midline with numerous loops of small and large bowel with no definite obstructive changes. Findings are overall in adequately evaluated due to motion, body habitus, and lack of IV contrast. 7. Case discussed with Dr. Leonard by Dr. Fink at 0835 on 02/15/18. Signed by: Dr. Herbert Fink MD on 02/15/2018 8:46 AM
[2018-02-15] MEDS: PANTOPRAZOLE 40 MG 10ML VIAL IV SCH (09:10)
[2018-02-15] MEDS: SODIUM BICARBONATE 650 MG TAB PO SCH (09:11)
[2018-02-15] MEDS: METOPROLOL TARTRATE 50 MG TAB PO SCH ×2 (09:11→16:48)
[2018-02-15] MEDS: HEPARIN SOD (PORCINE) 5,000 UNIT/ML VIAL SC SCH ×2 (09:13→21:18)
--- NOTE | 2018-02-15 09:30 | NUR ---
Monserrat Melgar, Brock, and Luca to bedside. TPN/lipid orders to pharmacy.
--- NOTE | 2018-02-15 10:05 | Diagnostic Imaging Report ---
EXAM: XR CHEST 1 VIEW DATE: 02/15/2018 9:36 AM INDICATION: ET tube advanced COMPARISON: 02/15/2018 at 0518 FINDINGS: Lines and Tubes: Right IJ catheter tip overlies the SVC. NG tube courses past the inferior field of view. Tip of ET tube overlies the oropharynx. Heart and Mediastinum: Enlarged. Lungs and Pleura: Bibasilar opacities. Small right apical pneumothorax. Bones and Soft Tissues: No acute findings. IMPRESSION: 1. Tip of ET tube remains oropharynx. Advancement 7 to 9 cm recommended. 2. Dense basilar opacities could represent alone or in combination atelectasis, aspiration, or pneumonia. 3. Small right pneumothorax. 4. These findings unchanged from recent CT. Signed by: Dr. Herbert Fink MD on 02/15/2018 10:02 AM
[2018-02-15] MEDS ORDERED: POTASSIUM CHLORIDE 10MEQ/100ML 200 ML IV ONE (11:00)
[2018-02-15] MEDS ORDERED: POTASSIUM CHLORIDE 10MEQ/100ML 100 ML ONE (11:44)
--- NOTE | 2018-02-15 13:30 | NUR ---
Dr Beltrán to bedside, ETT repositioned and STAT CXR obtained.
[2018-02-15] MEDS ORDERED: SUCCINYLCHOLINE CHLORIDE 20 MG/ML 10ML VIAL ONE (13:33)
--- NOTE | 2018-02-15 14:11 | Diagnostic Imaging Report ---
EXAM: XR CHEST 1 VIEW DATE: 02/15/2018 1:39 PM INDICATION: ET tube positioning COMPARISON: Same day 944 FINDINGS: Lines and Tubes: ET tube has been advanced and is now satisfactorily above the nano. Right IJ catheter and NG tube stable. Heart and Mediastinum: Prominence of the heart and aortic arch stable. Lungs and Pleura: Bibasilar opacities suggesting atelectasis and/or pneumonia, stable. Known right apical pneumothorax not well seen. Bones and Soft Tissues: No acute findings. IMPRESSION: 1. ET tube repositioned. Signed by: Dr. Herbert Fink MD on 02/15/2018 2:08 PM
[2018-02-15] MEDS ORDERED: SODIUM CHLORIDE 0.9% 250ML 250 ML IV ONE ×2 (14:15→21:30)
[2018-02-15] MEDS: CEFTRIAXONE SOD 2 GM VIAL IV SCH (14:30)
[2018-02-15] MEDS ORDERED: SODIUM BICARBONATE 650 MG TAB PO SCH (15:00)
[2018-02-15] MEDS ORDERED: SUCCINYLCHOLINE 200 MG/10 ML SYR IV ONE (15:00)
[2018-02-15 15:40] LABS: ABG HCO3 33 mmol/L (23-28); ABG PCO2 37 mmHg (41-51); ABG PH 7.57 (7.31-7.41); ABG PO2 285 mmHg (80-105)
--- NOTE | 2018-02-15 16:10 | NUR ---
Blood consent completed and placed in chart.
[2018-02-15] MEDS: NOREPINEPHRINE 8 MG/D5W 250 ML 250 ML IV SCH (16:45)
[2018-02-15] MEDS: CENTRAL TPN FORMULA 1 BAG IV SCH (18:48)
--- NOTE | 2018-02-15 19:00 | NUR ---
Bedside report received from Daniela Valdovinos RN. Pt resting in bed, bed in lowest and locked position, restraints intact wdp, no signs of distress noted, pink heel protectors in use, pillows to head/neck/bilateral arms/elbows/bilateral calves to off load heels, sacral patch in use, alternating pressure mattress in use. Orders reviewed.
[2018-02-15] MEDS ORDERED: SODIUM CHLORIDE 0.9% 250ML 250 ML ONE (21:08)
[2018-02-15] MEDS: FUROSEMIDE INJ 10 MG/ML 2 ML VIAL IV PRN (21:25)
[2018-02-16] VITALS (86 sets, daily range): BP systolic 94–163; BP diastolic 56–94
[2018-02-16] MEDS: FUROSEMIDE INJ 10 MG/ML 2 ML VIAL IV PRN (01:51)
[2018-02-16] MEDS: MIDAZOLAM HCL 25 MG in SODIUM CHLORIDE 0.9% 50ML 45 ML IV PRN (01:51)
[2018-02-16] MEDS: FENTANYL CITRATE INJ 2,000 MCG in SODIUM CHLORIDE 0.9% 250ML 210 ML IV PRN (01:51)
[2018-02-16 04:45] LABS: BASOPHILS % 0.2 % (0.0-1.0); HEMATOCRIT 29.7 % (34.2-44.1); HEMOGLOBIN 9.9 g/dL (12.0-16.0); LYMPHOCYTES % 23.1 % (18.0-39.1); MEAN CORPUSCULAR HGB CONC 33.3 g/dL (31-35); MONOCYTES # (AUTO) 0.5 (0.2-0.8); MONOCYTES % 11.5 % (4.4-11.3); NEUTROPHILS # (AUTO) 2.5 (2.1-6.9); NEUTROPHILS % 59.9 % (38.7-80.0); PLATELET COUNT 186 x10e3/uL (140-360); RED BLOOD COUNT 3.09 x10e6/uL (3.6-5.1)
[2018-02-16 04:57] LABS: MEAN CORPUSCULAR VOLUME 96.1 fL (81-99); RED CELL DISTRIBUTION WIDTH 17.8 % (11.7-14.4)
[2018-02-16 05:08] LABS: ANION GAP 15.3 mmol/L (8-16); CALCIUM 7.9 mg/dL (8.4-10.2); CREATININE, SERUM 3.17 mg/dL (0.57-1.11); MAGNESIUM 1.5 MG/DL (1.3-2.1); POTASSIUM 3.3 mmol/L (3.5-5.1)
[2018-02-16] MEDS: TRAMADOL HCL 50 MG TAB PO SCH ×3 (06:00→18:00)
[2018-02-16] MEDS: METRONIDAZOLE 500MG/NS 100ML 100 ML IV SCH ×3 (06:04→21:16)
--- NOTE | 2018-02-16 06:45 | NUR ---
Sedation off. Patient turned, oral care and pericare provided.
--- NOTE | 2018-02-16 07:00 | NUR ---
Bedside report given to Daniela Valdovinos RN.
[2018-02-16] MEDS ORDERED: POTASSIUM CHLORIDE 20MEQ/100ML 100 ML ONE (07:55)
[2018-02-16] MEDS ORDERED: POTASSIUM CHLORIDE 20MEQ/100ML 100 ML IV ONE (08:00)
[2018-02-16 08:36] LABS: BAND NEUTROPHILS % (MANUAL) 10 %; LYMPHOCYTES % (MANUAL) 14 % (19-48); MONOCYTES % (MANUAL) 10 % (3.4-9.0); NEUTROPHILS % (MANUAL) 66 % (40-74)
[2018-02-16 08:37] LABS: PLATELET ESTIMATE ADEQUATE; PLATELET MORPHOLOGY COMMENT MODERATE LARGE; RBC MORPHOLOGY COMMENT NORMAL
[2018-02-16] MEDS: PANTOPRAZOLE 40 MG 10ML VIAL IV SCH (08:46)
[2018-02-16] MEDS: METOPROLOL TARTRATE 50 MG TAB PO SCH ×2 (08:47→17:00)
[2018-02-16] MEDS: HEPARIN SOD (PORCINE) 5,000 UNIT/ML VIAL SC SCH ×2 (08:48→21:15)
--- NOTE | 2018-02-16 12:19 | NUR ---
Dr Pineda to bedside. To continue to attempt to wean and monitor patient.
[2018-02-16] MEDS: CEFTRIAXONE SOD 2 GM VIAL IV SCH (13:49)
[2018-02-16] MEDS: NOREPINEPHRINE 8 MG/D5W 250 ML 250 ML IV SCH (15:34)
--- NOTE | 2018-02-16 19:00 | NUR ---
Bedside report received from Daniela Valdovinos RN. Pt received resting in bed, sedation is off to prepare for AM weaning protocol, pts daughter is at the bedside and care plan reviewed with her, bed in lowest and locked position, call light in reach of the pt, ett to vent per md orders, pt withdraws and partially opens eyes and turns head to voices and to touch. [place] heel protectors in use, pillows to arms/elbows/head/neck/bilateral calves off loading heels, alternating pressure mattress in use, sacral patch in use. No signs of pain or discomfort or distress noted at this time.
[2018-02-16] MEDS: CENTRAL TPN FORMULA 1 BAG IV SCH (20:17)
[2018-02-17] VITALS (97 sets, daily range): BP systolic 76–193; BP diastolic 37–132
[2018-02-17] MEDS: HYDRALAZINE HCL 25 MG TAB PO PRN ×2 (01:18→12:23)
[2018-02-17] MEDS: ACETAMINOPHEN 325 MG TAB PO PRN ×2 (04:00→16:30)
[2018-02-17 04:53] LABS: BASOPHILS % 0.7 % (0.0-1.0); EOSINOPHILS # (AUTO) 0.1 (0.0-0.4); EOSINOPHILS % 1.4 % (0.0-6.0); HEMATOCRIT 35.1 % (34.2-44.1); HEMOGLOBIN 11.4 g/dL (12.0-16.0); LYMPHOCYTES # (AUTO) 1.3 (1.0-3.2); LYMPHOCYTES % 22.6 % (18.0-39.1); MEAN CORPUSCULAR HEMOGLOBIN 31.8 pg (28-32); MEAN CORPUSCULAR HGB CONC 32.5 g/dL (31-35); MEAN CORPUSCULAR VOLUME 97.8 fL (81-99); MONOCYTES # (AUTO) 0.7 (0.2-0.8); MONOCYTES % 13.4 % (4.4-11.3); NEUTROPHILS # (AUTO) 3.1 (2.1-6.9); NEUTROPHILS % 55.4 % (38.7-80.0); PLATELET COUNT 224 x10e3/uL (140-360); RED BLOOD COUNT 3.59 x10e6/uL (3.6-5.1); RED CELL DISTRIBUTION WIDTH 17.9 % (11.7-14.4)
[2018-02-17 05:16] LABS: ANION GAP 16.8 mmol/L (8-16); CALCIUM 8.2 mg/dL (8.4-10.2); CREATININE, SERUM 2.72 mg/dL (0.57-1.11); POTASSIUM 3.8 mmol/L (3.5-5.1)
[2018-02-17] MEDS: TRAMADOL HCL 50 MG TAB PO SCH ×5 (05:16→19:00)
[2018-02-17] MEDS: METRONIDAZOLE 500MG/NS 100ML 100 ML IV SCH ×3 (05:41→21:39)
--- NOTE | 2018-02-17 06:42 | Diagnostic Imaging Report ---
ADDENDUM #1 Previous right apical pneumothorax not well-visualized. Signed by: Dr Denisse Bee MD on 02/17/2018 6:53 AM ORIGINAL REPORT CHEST SINGLE (PORTABLE), 02/17/2018 4:46 AM Technique: CHEST SINGLE (PORTABLE) Comparison: 02/15/2010 Clinical history: Respiratory failure Findings: See Impression Impression: Limited by portable technique, motion and soft tissue attenuation. 1. Lines/Tubes: Stable ET tube, right IJ central venous catheter, subdiaphragmatic NG tube. 2. Stable prominent cardiomediastinal silhouette. 3. Stable bilateral pulmonary opacities with possible underlying edema and pleural effusions. 4. Lung apices are excluded. Previous right apical pneumothorax normal seen. Signed by: Dr Denisse Bee MD on 02/17/2018 6:38 AM
--- NOTE | 2018-02-17 06:44 | NUR ---
Dr. Mcdowell present and assessing the pt.
[2018-02-17] MEDS: HEPARIN SOD (PORCINE) 5,000 UNIT/ML VIAL SC SCH ×2 (09:52→20:51)
[2018-02-17] MEDS: PANTOPRAZOLE 40 MG 10ML VIAL IV SCH (09:52)
[2018-02-17] MEDS: METOPROLOL TARTRATE 50 MG TAB PO SCH ×2 (09:54→17:00)
--- NOTE | 2018-02-17 10:45 | NUR ---
ASSESSMENT: Spiritual distress Pt's family hopeful. Pt's family looking for signs of improvement. Intervention: Provided empathic listening. facilitated illness review. Encouraged self-care. Reminded family of availability of personnel placement specialist. Outcome: Will continue to follow. JAZMIN SMITH Manufacturing Maintenance Technician Spiritual Care Department O: [phone] Pager: [phone] ([phone] number calling from)
--- NOTE | 2018-02-17 11:29 | NUR ---
Dr. Woody assessed patient earlier this morning. no new orders received. patient continues to be restrained bilaterally wrists as she is frequently restless. Will attempt to wean ventilator as patient becomes more alert and able to follow purposeful commands per Dr. Pineda's orders. no injuries noted due to restraints. at bedside with patient.
[2018-02-17] MEDS ORDERED: CENTRAL TPN FORMULA 1 BAG IV SCH (12:20)
--- NOTE | 2018-02-17 14:21 | NUR ---
updated dr. isaacs with vital signs and cardiac rhythm. will obtain ekg and iv metoprolol for elevated hr/bp
[2018-02-17] MEDS ORDERED: METOPROLOL TARTRATE INJ 1 MG/ML VIAL IV ONE (14:30)
[2018-02-17] MEDS ORDERED: SODIUM CHLORIDE 0.9% 250ML 250 ML ONE (14:42)
[2018-02-17] MEDS: CEFTRIAXONE SOD 2 GM VIAL IV SCH (14:50)
--- NOTE | 2018-02-17 15:23 | NUR ---
WOUND CARE NURSE RECONSULTATION. PATIENT IS NOW INTUBATED AND PRESENTS WITH A 1X2CM STAGE I TO RIGHT HEEL, 7X7CM DTI TO SACRUM AND 14M60EP RASH TO RIGHT HIP. FAMILY AT BEDSIDE EDUCATED ON PLAN OF CARE, TREATMENT AND PRESSURE RELIEF TO THE AFFECTED AREA. STATE UNDERSTANDING. LABS: WBC: 5.54 ALB: 1.5 RECOMMENDATIONS: APPLY VENELEX OINTMENT BID TO RIGHT HIP, RIGHT HEEL AND SACRUM THEN COVER WITH FOAM DRESSING. TURN PT Q 2 HOURS AND PRN CONTINUE WITH BILATERAL HEEL PROTECTORS AND PILLOW SUSPENSIONS. CONTINUE WITH ALTERNATING LOW AIR LOSS MATTRESS. THANKS FOR THIS CONSULTATION. Addendum: 02/17/18 at 1534 by Rachel Apple RN Amended: Links added.
--- NOTE | 2018-02-17 16:22 | NUR ---
Nutrition Intervention Note RD Recommendation for Physician: -Current standard TPN at 60mL/hr that is providin ml total volume/day, 216 g dextrose, 72 g Amino Acids 10%. Total kcal including lipids of 25gm/week- 1118 kcal/day. This is meeting 92% of estimated kcal needs and 87% of estimated protein needs. -Continue with TPN per MD until diet is advanced and intake is >50%. -Check BMP, Phos, Mag daily; Prealbumin, LFT and TG levels weekly -Advance diet as tolerated to GI Soft Plan of Care: RD following, monitoring for tolerance and adequacy Nutrition reason for involvement: Follow up, new TPN Primary Diagnose(s): small-bowel obstruction or intestinal obstruction likely due to adhesions with associated large hernia, acute renal failure PMH: Chronic kidney disease, ureterostomy/ileal conduit obstruction, recurrent urinary tract infection, HTN, insomnia, reflux, L renal atrophy, CKD, pancreatitis GI: NGT to suction, draining dark fluids 02/17 Skin: stage I to right heel, DTI to sacrum and rash to right hip per wound care Labs: (02/17) BUN 58 H, Creatinine 2.72 H, Glucose 168 H, Ca 8.2 L Meds: (02/17) protonix, rocephin Ht: 64in Wt: 183lb 02/12 BMI: 31.4kg/m2 IBW: 120lb RD Assessment: (02/17) Chart reviewed. Pt was discussed during rounds. Visited pt in the room. Pt remains intubated and ventilated. No surgery intervention planned for SBO. NGT on suction, still draining dark fluids. Pt is currently receiving standard TPN @ 60mL/hr with addition of 25g lipid on MWF, which is meeting her protein and calorie needs. Family is aware of the purpose of TPN. No phosphorus and magnesium drawn for today; RN is aware. Will continue to monitor and follow. (02/13) Chart reviewed. Labs and meds reviewed. 77 yo F, who is admitted for abdominal pain. R nephrostomy catheter placed today. Positive urine culture. Visited pt in the room. Family on bedside provided info. NGT on suction, still draining dark fluids. 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 Family doesnt suspect any recent weight loss with stable weight ~175lb. Pt was able to chew and swallow without any issue at home. Code sepsis was called shortly after I left the room. Pt was transferred to ICU 194. Will continue to monitor and follow. Current Diet: NPO Malnutrition Evaluation (02/13) The patient does not meet criteria for a specified degree of malnutrition at this time. Will re-evaluate at follow-up as appropriate. Energy intake: <75% of estimated energy requirements for >7 days Weight loss: None per family. No physical sign of malnutrition upon observation, with BMI of 31.4kg/m2. Estimated Nutritional Needs: Calories: 1210 1375kcal (22-25kcal/kg ) Weight used : [place] body weight Protein : 83 138g (1.5-2.5g/kg) Weight used: [place] body weight Diet Adequacy: Meeting calorie needs, Meeting protein needs Diet Education Needs Assessment: Diet education not indicated. Nutrition Care Level: high (new TPN ) Nutrition Diagnosis: Inadequate oral intake related to current medical status as evidenced by pt requiring TPN as main source of nutrition. Goal: Patient will meet 75-100% of estimated needs by follow up Progress: Progressing Interventions: IVF, Prescription medications Monitoring/Evaluation: Total energy intake, Total protein intake, IVF, Prescription medication, Weight change Signed: Leeann Mariee, MS, RD, LD
[2018-02-17] MEDS: NOREPINEPHRINE 8 MG/D5W 250 ML 250 ML IV SCH (16:45)
[2018-02-17] MEDS: BALSAM PERU/CASTOR OIL 60 GM OINT...G. TP SCH (18:07)
--- NOTE | 2018-02-17 19:23 | NUR ---
updated dr. isaacs of change in bp. bolus ordered. consulted dr. arriaga, spoke to with new orders received.
[2018-02-17] MEDS ORDERED: SODIUM CHLORIDE 0.9% 1000ML 1,000 ML IV ONE ×2 (19:30→20:30)
--- NOTE | 2018-02-17 19:30 | NUR ---
Received patient with low blood pressure, running and aflutter, Dr Mercado informed, orders carried out. Patient bolused 100 mls of NS
[2018-02-17] MEDS ORDERED: DIGOXIN INJ 0.25 MG/ML 2 ML AMP IV NR (19:45)
--- NOTE | 2018-02-17 21:00 | NUR ---
Patient repositioned for comfort, HR at a high of 115bpm. Patient moving all limbs, restrained for safety
[2018-02-18] VITALS (57 sets, daily range): BP systolic 106–191; BP diastolic 60–127
[2018-02-18] MEDS: METOPROLOL TARTRATE INJ 1 MG/ML VIAL IV PRN ×4 (00:30→17:10)
--- NOTE | 2018-02-18 00:39 | NUR ---
Blood pressure stable with systolics above 150, HR still at a high of 115-120bpm. given Lopressor as prescribed
--- NOTE | 2018-02-18 04:00 | NUR ---
Patient had a BM, cleaned, dirty linens changed, settled comfortably in bed.
[2018-02-18 04:38] LABS: BASOPHILS # (AUTO) 0.1 (0.0-0.1); EOSINOPHILS # (AUTO) 0.1 (0.0-0.4); EOSINOPHILS % 1.3 % (0.0-6.0); HEMATOCRIT 33.9 % (34.2-44.1); HEMOGLOBIN 10.8 g/dL (12.0-16.0); LYMPHOCYTES # (AUTO) 1.4 (1.0-3.2); LYMPHOCYTES % 24.2 % (18.0-39.1); MEAN CORPUSCULAR HEMOGLOBIN 31.3 pg (28-32); MEAN CORPUSCULAR HGB CONC 31.9 g/dL (31-35); MEAN CORPUSCULAR VOLUME 98.3 fL (81-99); MONOCYTES # (AUTO) 0.7 (0.2-0.8); MONOCYTES % 11.7 % (4.4-11.3); NEUTROPHILS # (AUTO) 3.2 (2.1-6.9); NEUTROPHILS % 54.4 % (38.7-80.0); PLATELET COUNT 230 x10e3/uL (140-360); RED BLOOD COUNT 3.45 x10e6/uL (3.6-5.1); RED CELL DISTRIBUTION WIDTH 17.8 % (11.7-14.4)
[2018-02-18 05:00] LABS: ANION GAP 16.6 mmol/L (8-16); CALCIUM 8.3 mg/dL (8.4-10.2); CREATININE, SERUM 2.47 mg/dL (0.57-1.11); POTASSIUM 3.6 mmol/L (3.5-5.1)
--- NOTE | 2018-02-18 05:00 | NUR ---
Patient awake and restless, systolic blood pressures above 170, HR to a high of 116. Lopressor administered as prescribed
[2018-02-18] MEDS: METRONIDAZOLE 500MG/NS 100ML 100 ML IV SCH ×3 (05:33→21:40)
[2018-02-18] MEDS: TRAMADOL HCL 50 MG TAB PO SCH ×2 (06:00)
--- NOTE | 2018-02-18 06:00 | NUR ---
Patient remains awake and restless administered [place] for pain
[2018-02-18 07:06] LABS: BAND NEUTROPHILS % (MANUAL) 4 %; EOSINOPHILS % (MANUAL) 2 % (0-7); LYMPHOCYTES % (MANUAL) 14 % (19-48); MONOCYTES % (MANUAL) 13 % (3.4-9.0); NEUTROPHILS % (MANUAL) 67 % (40-74)
[2018-02-18 07:07] LABS: ANISOCYTOSIS S; PLATELET ESTIMATE ADEQUATE; PLATELET MORPHOLOGY COMMENT NORMAL; POIKILOCYTOSIS S; RBC MORPHOLOGY COMMENT ABNORMAL
--- NOTE | 2018-02-18 07:18 | NUR ---
patient stabilized, handed over to incoming nurse
[2018-02-18] MEDS: METOPROLOL TARTRATE 50 MG TAB PO SCH ×2 (08:58→16:59)
[2018-02-18] MEDS: BALSAM PERU/CASTOR OIL 60 GM OINT...G. TP SCH ×2 (08:58→16:59)
[2018-02-18] MEDS: PANTOPRAZOLE 40 MG 10ML VIAL IV SCH (08:58)
--- NOTE | 2018-02-18 08:59 | Consultation ---
DATE OF CONSULTATION: February 17, 2018 CARDIOLOGY CONSULTATION REASON FOR CONSULTATION: A-flutter and multiple PVCs. HPI: This is a 77-year-old female with multiple medical problems that presented with abdominal pain. According to the at the bedside, she has extensive abdominal and pelvic surgery in the past. She started having abdominal pain accompanied with nausea and vomiting that she was brought to the emergency room for evaluation. In the emergency room, she was found with hydronephrosis with infection. She is intubated in the ICU with TPN going on. Yesterday, she had been off sedation for possible extubation. She is very restless. She was found with multiple PVCs and A-flutter, and cardiology was consulted. PAST MEDICAL HISTORY: CKD, kidney stone, hypertension, recurrent UTI, renal atrophy, GERD, neurogenic bladder, ileal conduit, and chronic right hydronephrosis. PAST SURGICAL HISTORY: Multiple abdominal surgeries, right nephrostomy, ileal conduit, Whipple in the past. FAMILY HISTORY: Noncontributory. SOCIAL HISTORY: She lives at home with her . No smoking. No drinking. MEDICATIONS: See med list. ALLERGIES: SHE IS ALLERGIC TO PENICILLIN. REVIEW OF SYSTEMS: Unable to obtain. She is intubated and restless. PHYSICAL EXAMINATION VITAL SIGNS: Temperature 98.7, heart rate 115, blood pressure 164/91, respirations 22, oxygen saturation 99% on mechanical ventilator. GENERAL: She is not awake, but she is restless. Not able to follow commands or verbalize needs. HEENT: Mucous membrane moist. NECK: Supple. LUNGS: Bilateral with decreased breath sounds. CARDIOVASCULAR: S1 and S2 present. ABDOMEN: Soft. NEUROLOGICAL: She is intubated. EXTREMITIES: With no edema. LABS: Sodium 142, potassium 3.6, chloride is 106, CO2 23, BUN 55, creatinine 2.47, glucose 135. White blood cells 5.96, hemoglobin 10.8, hematocrit 33.9, and platelets 230,000. PT 17.1, PTT 40.5 and INR 1.28. IMPRESSION 1. Atrial flutter. 2. Chronic kidney disease. 3. Anemia. 4. Respiratory distress. 5. Urinary tract infection. ASSESSMENT AND PLAN 1. Heart rate is back to normal sinus rhythm with multiple PVCs. The patient is restless off sedation and trying to wake up. 2. Will go ahead and check the magnesium today. 3. She is already on beta theodore. Will continue the same. 4. Planning on possible extubation. 5. She is on TPN. 6. Further cardiac workup pending clinical course. Thank you for this consultation. DICTATED BY FRAN STACK NP Job#: [id number]
[2018-02-18] MEDS: HEPARIN SOD (PORCINE) 5,000 UNIT/ML VIAL SC SCH ×2 (09:00→21:40)
[2018-02-18] MEDS: ACETAMINOPHEN 325 MG TAB PO PRN ×2 (09:00→17:00)
--- NOTE | 2018-02-18 09:57 | NUR ---
MD Aisha hinojosa, as MD Mcdowell states that pt is able to start TF and MD Pineda concuts. Awaiting response.
--- NOTE | 2018-02-18 10:00 | NUR ---
MD Pineda states that CVP monitoring may be discontinued.
--- NOTE | 2018-02-18 10:20 | NUR ---
ASSESSMENT: Spiritual concern Pt's cautiously optimistic. Concerning pt, states, "she is starting to improve." Pt's states prior to this hospitalization they help take care of each other. Intervention: Provided empathic listening. Facilitated illness review. Outcome: Pt's expressed appreciation for visit. Will continue to follow as able. JAZMIN SMITH Fruit Or Nut Grower Spiritual Care Department O: [phone] Pager: [phone] ([phone] number calling from)
--- NOTE | 2018-02-18 11:47 | Diagnostic Imaging Report ---
Examination: Single AP view of the chest. COMPARISON: 02/17/2018 INDICATION: N G-tube placement, intubation DISCUSSION: See impression IMPRESSION: 1. Endotracheal tube, right internal jugular central venous catheter, and enteric tube are unchanged in position. The tip of the enteric tube projects off the current radiograph, inferior to the left hemidiaphragm. 2. Stable enlargement of the cardiac silhouette and bilateral lower lobe predominant pulmonary opacities, which may reflect atelectasis or aspiration superimposed on pulmonary edema. Trace bilateral pleural effusions. 3. Previously noted right apical pneumothorax is no longer appreciated. Signed by: Dr. Anthony Dickey M.D. on 02/18/2018 11:44 AM
--- NOTE | 2018-02-18 11:49 | Diagnostic Imaging Report ---
Exam: Abdominal film Clinical History: NG tube placement confirmation Comparison: CT abdomen and pelvis 02/14/2018 DISCUSSION: Tip of the nasogastric tube projects at midline over the lumbar spine, over the expected region of the distal stomach. Large left renal calculus and right percutaneous nephrostomy catheter. Right lower quadrant spinal stimulation device. Multiple pelvic surgical clips. Bowel gas pattern is nonobstructive. IMPRESSION: Tip of nasogastric tube projects over the expected region of the distal gastric body. Signed by: Dr. Anthony Dickey M.D. on 02/18/2018 11:46 AM
[2018-02-18] MEDS: CEFTRIAXONE SOD 2 GM/NS 100 ML 100 ML IV SCH (14:15)
--- NOTE | 2018-02-18 14:33 | NUR ---
Nutrition Intervention Note RD Recommendation for Physician: - Rec continuous TF with Vital AF 1.2 Norman @45mL/hr, providing 1296kcal, 81g protein, and 876mL fluids. Free water flushes of 30mL q 4hr. Additional fluids per MD discretion. - Discontinue TPN when TF is tolerated at 25mL/hr. - Monitor labs, replace low lytes; monitor gastric residual and GI tolerance. - If PO is feasible, rec GI soft diet as tolerated Plan of Care: RD following, monitoring for tolerance and adequacy, TF Nutrition reason for involvement: Follow up, TF rec Primary Diagnose(s): small-bowel obstruction or intestinal obstruction likely due to adhesions with associated large hernia, acute renal failure PMH: Chronic kidney disease, ureterostomy/ileal conduit obstruction, recurrent urinary tract infection, HTN, insomnia, reflux, L renal atrophy, CKD, pancreatitis GI: abd soft, round, flatus present 02/18, NGT present Skin: stage I to right heel, DTI to sacrum and rash to right hip per wound care Labs: (02/18) BUN 55 H, Creatinine 2.47 H, Glucose 145 H, Ca 8.3 L (02/17) BUN 58 H, Creatinine 2.72 H, Glucose 168 H, Ca 8.2 L Meds: protonix Ht: 64in Wt: 183lb 02/12, 242lb 02/18 (inaccurate weight taken?) BMI: 31.4kg/m2 IBW: 120lb RD Assessment: (02/18) Chart reviewed. Pt remains intubated and ventilated. Per RN, pt will start TF while weaning off TPN. Renal function has improved; no dialysis. Phosphorus and potassium levels have been stable. No GI complains noted. Flatus present. RD rec continuous TF with Vital AF 1.2 Norman @45mL/hr, providing 1296kcal, 81g protein, and 876mL fluids. Free water flushes of 30mL q 4hr. If PO is feasible and % meal intake >50%, d/c TF. Discussed with nursing. Will continue to monitor and follow. (02/17) Chart reviewed. Pt was discussed during rounds. Visited pt in the room. Pt remains intubated and ventilated. No surgery intervention planned for SBO. NGT on suction, still draining dark fluids. Pt is currently receiving standard TPN @ 60mL/hr with addition of 25g lipid on MWF, which is meeting her protein and calorie needs. Family is aware of the purpose of TPN. No phosphorus and magnesium drawn for today; RN is aware. Will continue to monitor and follow. (02/13) Chart reviewed. Labs and meds reviewed. 77 yo F, who is admitted for abdominal pain. R nephrostomy catheter placed today. Positive urine culture. Visited pt in the room. Family on bedside provided info. NGT on suction, still draining dark fluids. 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 Family doesnt suspect any recent weight loss with stable weight ~175lb. Pt was able to chew and swallow without any issue at home. Code sepsis was called shortly after I left the room. Pt was transferred to ICU 194. Will continue to monitor and follow. Current Diet: NPO Malnutrition Evaluation (02/13) The patient does not meet criteria for a specified degree of malnutrition at this time. Will re-evaluate at follow-up as appropriate. Energy intake: <75% of estimated energy requirements for >7 days Weight loss: None per family. No physical sign of malnutrition upon observation, with BMI of 31.4kg/m2. Estimated Nutritional Needs: Calories: 1210 1375kcal (22-25kcal/kg ) Weight used : [place] body weight Protein : 83 138g (1.5-2.5g/kg) Weight used: [place] body weight Diet Adequacy: Meeting calorie needs, Meeting protein needs Diet Education Needs Assessment: Diet education not indicated. Nutrition Care Level: high (new TPN/ TF ) Nutrition Diagnosis: Inadequate oral intake related to current medical status as evidenced by pt requiring TPN/ TF as main source of nutrition. Goal: Patient will meet 75-100% of estimated needs by follow up Progress: Progressing Interventions: Rate, composition, IVF Monitoring/Evaluation: Total energy intake, Total protein intake, formula/solution, IVF, Weight change Signed: Leeann Mariee MS, RD, LD
[2018-02-18] MEDS: NOREPINEPHRINE 8 MG/D5W 250 ML 250 ML IV SCH (16:45)
[2018-02-18] MEDS ORDERED: CENTRAL TPN FORMULA 1 BAG IV SCH (20:00)
[2018-02-18] MEDS ORDERED: HYDROCODONE/APAP 10MG-325MG TAB PO PRN (21:15)
[2018-02-19] VITALS (33 sets, daily range): BP systolic 104–183; BP diastolic 56–104
[2018-02-19 05:06] LABS: BASOPHILS # (AUTO) 0.1 (0.0-0.1); BASOPHILS % 0.8 % (0.0-1.0); EOSINOPHILS # (AUTO) 0.1 (0.0-0.4); HEMATOCRIT 32.6 % (34.2-44.1); LYMPHOCYTES # (AUTO) 1.5 (1.0-3.2); LYMPHOCYTES % 20.2 % (18.0-39.1); MEAN CORPUSCULAR HEMOGLOBIN 30.9 pg (28-32); MEAN CORPUSCULAR HGB CONC 30.7 g/dL (31-35); MEAN CORPUSCULAR VOLUME 100.6 fL (81-99); MONOCYTES # (AUTO) 0.6 (0.2-0.8); MONOCYTES % 8.5 % (4.4-11.3); NEUTROPHILS # (AUTO) 4.5 (2.1-6.9); NEUTROPHILS % 61.8 % (38.7-80.0); PLATELET COUNT 214 x10e3/uL (140-360); RED BLOOD COUNT 3.24 x10e6/uL (3.6-5.1); RED CELL DISTRIBUTION WIDTH 17.9 % (11.7-14.4)
[2018-02-19 05:28] LABS: ANION GAP 16.4 mmol/L (8-16); CALCIUM 8.5 mg/dL (8.4-10.2); CREATININE, SERUM 2.38 mg/dL (0.57-1.11); POTASSIUM 3.4 mmol/L (3.5-5.1)
[2018-02-19] MEDS: METRONIDAZOLE 500MG/NS 100ML 100 ML IV SCH ×3 (05:45→21:57)
--- NOTE | 2018-02-19 05:55 | Diagnostic Imaging Report ---
EXAMINATION: CHEST SINGLE (PORTABLE) INDICATION: Intubated. COMPARISON: Chest x-ray 02/18/2018. FINDINGS: AP view TUBES and LINES: Endotracheal tube tip projects above the nano. Right IJ central venous catheter tip projects over the SVC. NG/NG tube courses below the diaphragm out of the field of view. LUNGS: Lungs are well inflated. Stable interstitial opacities and bilateral lower lobe opacities. PLEURA: Probable trace effusions. No pneumothorax. HEART AND MEDIASTINUM: The cardiomediastinal silhouette is stable. BONES AND SOFT TISSUES: No acute osseous lesion. Soft tissues are unremarkable. UPPER ABDOMEN: No free air under the diaphragm. IMPRESSION: Stable edema with stable lower lobe opacities likely representing edema, atelectasis, or aspiration. Signed by: DR. Mic Valentin MD on 02/19/2018 5:51 AM
[2018-02-19 05:56] LABS: BAND NEUTROPHILS % (MANUAL) 2 %; LYMPHOCYTES % (MANUAL) 10 % (19-48); MONOCYTES % (MANUAL) 12 % (3.4-9.0); NEUTROPHILS % (MANUAL) 76 % (40-74)
[2018-02-19 05:58] LABS: ANISOCYTOSIS MODERATE; POIKILOCYTOSIS S; RBC MORPHOLOGY COMMENT ABNORMAL
[2018-02-19 05:59] LABS: PLATELET ESTIMATE ADEQUATE; PLATELET MORPHOLOGY COMMENT NORMAL
--- NOTE | 2018-02-19 07:15 | NUR ---
[place], Cardiology, to bedside.
[2018-02-19] MEDS: METOPROLOL TARTRATE 50 MG TAB PO SCH ×2 (08:00→17:00)
--- NOTE | 2018-02-19 08:30 | NUR ---
Dr Wall to bedside, orders rec'd.
--- NOTE | 2018-02-19 09:09 | NUR ---
DR MEJIA ORDERED TRY WEAN TO CPAP5/5/40%.
[2018-02-19] MEDS ORDERED: POTASSIUM CHLORIDE 20MEQ/100ML 100 ML IV ONE (09:15)
--- NOTE | 2018-02-19 09:15 | NUR ---
Spoke with Dr Pineda regarding patient plan of care; orders rec'd.
--- NOTE | 2018-02-19 09:30 | NUR ---
Al, Infectious Disease, to bedside.
[2018-02-19] MEDS: PANTOPRAZOLE 40 MG 10ML VIAL IV SCH (09:41)
[2018-02-19] MEDS: HEPARIN SOD (PORCINE) 5,000 UNIT/ML VIAL SC SCH ×2 (09:43→20:33)
--- NOTE | 2018-02-19 10:05 | NUR ---
Dr Woody to bedside, orders rec'd.
[2018-02-19] MEDS: BALSAM PERU/CASTOR OIL 60 GM OINT...G. TP SCH ×2 (10:56→16:41)
[2018-02-19] MEDS: METOPROLOL TARTRATE INJ 1 MG/ML VIAL IV PRN (11:29)
[2018-02-19 12:13] LABS: ABG HCO3 22 mmol/L (23-28); ABG PCO2 37 mmHg (41-51); ABG PH 7.38 (7.31-7.41); ABG PO2 97 mmHg (80-105)
--- NOTE | 2018-02-19 13:15 | NUR ---
DR MANUEL ORDER EXTUBATED PT,PLACED PT ON NC 4L,02 SAT 985,RES RATE 23.NO RES DISTRESS AT THIS TIME.
--- NOTE | 2018-02-19 13:15 | NUR ---
Dr Pineda to bedside; patient extubated to 4L NC.
[2018-02-19] MEDS: CEFTRIAXONE SOD 2 GM/NS 100 ML 100 ML IV SCH (14:03)
[2018-02-19] MEDS ORDERED: DEXMEDETOMIDINE 200MCG/NS 50ML 50 ML IV PRN (14:30)
[2018-02-19] MEDS ORDERED: DEXMEDETOMIDINE 200MCG/NS 50ML 50 ML IV ONE (14:33)
--- NOTE | 2018-02-19 15:23 | Diagnostic Imaging Report ---
A single frontal view of the chest. HISTORY: extubation-confirm NGT placement COMPARISON: Chest radiograph February 19, 2018 from 0524 DISCUSSION: A single image centered at the thoracoabdominal junction. Motion artifact partially limits sensitivity and specificity of the exam. Portable technique, further limits sensitivity of the exam. Tubes/Lines: Multiple overlying artifacts, catheters and/or tubes. An implanted electronic device projects over the left mid abdomen with adjacent radiopaque catheter. A radiopaque catheter extends below the level of the diaphragm, with the tip projecting at the superior aspect of the left iliac bone. Lungs and pleura: Bibasilar atelectasis. The pulmonary edema is better visualized on the comparison study. No definite pleural effusion or pneumothorax is identified. Heart and mediastinum: The cardiac silhouette cannot be well evaluated.. Bones: No acute osseous lesion is identified, given this limited exam. Other: Curvilinear globular calcific density projects over the left mid abdomen. IMPRESSION: A catheter projects over the mid thorax and abdomen, with the tip projecting at the superior aspect of left iliac bone, the exact location of the catheter is indeterminant, retraction may be warranted and/or repeat chest x-ray and abdominal radiograph after removal of the overlying artifacts. Signed by: Dr. Sumit Locke D.O., M.M.M. on 02/19/2018 3:20 PM
[2018-02-19] MEDS ORDERED: NICARDIPINE 20MG/200ML PREMIX 200 ML IV PRN (15:30)
[2018-02-19] MEDS: NOREPINEPHRINE 8 MG/D5W 250 ML 250 ML IV SCH (16:45)
[2018-02-19 17:20] LABS: ABG PH 7.38 (7.31-7.41)
[2018-02-19 17:21] LABS: ABG HCO3 23 mmol/L (23-28); ABG PCO2 39 mmHg (41-51); ABG PO2 158 mmHg (80-105)
--- NOTE | 2018-02-19 17:44 | Diagnostic Imaging Report ---
EXAMINATION: CHEST SINGLE (PORTABLE) INDICATION: ^recent extubation ^[id number] ^1700 COMPARISON: Chest radiograph and KUB 02/09/2018 FINDINGS: AP view TUBES and LINES: Right adjacent central venous catheter with tip overlying the mid SVC is unchanged. The endotracheal tube has been removed. Infradiaphragmatic NG/NG tube. LUNGS: Lungs are well inflated. Stable bibasilar atelectasis. New bilateral interstitial edema. PLEURA: Possible trace bilateral pleural effusions. No pneumothorax. HEART AND MEDIASTINUM: The cardiac silhouette is within normal limits. Tortuous thoracic aorta with suspected ectasia of the aortic arch. BONES AND SOFT TISSUES: No acute osseous lesion. Soft tissues are unremarkable. UPPER ABDOMEN: No free air under the diaphragm. IMPRESSION: Interval extubation. Stable bibasilar atelectasis. Bilateral interstitial edema. Tortuous thoracic aorta with possible ectasia of the aortic arch. Signed by: Dr. Cheryl Marte M.D. on 02/19/2018 5:41 PM
--- NOTE | 2018-02-19 17:47 | Diagnostic Imaging Report ---
EXAM: Abdomen 1 Views INDICATION: ^NGT placement ^[id number] ^1700 COMPARISON: KUB 02/19/2018, CT chest abdomen and pelvis 02/14/2018 FINDINGS: NG/OG tube with tip overlying the right flank, likely distal gastric body. Neurostimulator device overlying the right lower quadrant with leads overlying the mid sacrum. Mild amount of stool in the colon. No dilated loops of small bowel. Large calcification overlying the left kidney is unchanged. No abnormal soft tissue masses. Advanced degenerative changes in the lumbar spine and pelvis. Surgical clips overlying the pelvis. IMPRESSION: NG/OG tube with tip overlying the right flank, likely distal gastric body. Signed by: Dr. Cheryl Marte M.D. on 02/19/2018 5:44 PM
[2018-02-20] VITALS (24 sets, daily range): BP systolic 111–164; BP diastolic 56–122
[2018-02-20] MEDS: METOPROLOL TARTRATE INJ 1 MG/ML VIAL IV PRN (02:34)
[2018-02-20 04:42] LABS: BASOPHILS # (AUTO) 0.1 (0.0-0.1); BASOPHILS % 0.7 % (0.0-1.0); EOSINOPHILS # (AUTO) 0.1 (0.0-0.4); EOSINOPHILS % 0.8 % (0.0-6.0); HEMOGLOBIN 10.3 g/dL (12.0-16.0); LYMPHOCYTES # (AUTO) 1.6 (1.0-3.2); MEAN CORPUSCULAR HEMOGLOBIN 31.6 pg (28-32); MEAN CORPUSCULAR HGB CONC 31.2 g/dL (31-35); MEAN CORPUSCULAR VOLUME 101.2 fL (81-99); MONOCYTES # (AUTO) 0.6 (0.2-0.8); MONOCYTES % 7.7 % (4.4-11.3); NEUTROPHILS # (AUTO) 4.6 (2.1-6.9); NEUTROPHILS % 62.4 % (38.7-80.0); PLATELET COUNT 214 x10e3/uL (140-360); RED BLOOD COUNT 3.26 x10e6/uL (3.6-5.1); RED CELL DISTRIBUTION WIDTH 17.8 % (11.7-14.4)
[2018-02-20 05:06] LABS: ALBUMIN 1.4 g/dL (3.5-5.0); ALBUMIN/GLOBULIN RATIO 0.3 (0.8-2.0); ANION GAP 16.5 mmol/L (8-16); CALCIUM 8.8 mg/dL (8.4-10.2); CREATININE, SERUM 2.29 mg/dL (0.57-1.11); POTASSIUM 3.5 mmol/L (3.5-5.1)
[2018-02-20] MEDS: METRONIDAZOLE 500MG/NS 100ML 100 ML IV SCH ×3 (06:24→22:36)
[2018-02-20 06:27] LABS: MAGNESIUM 1.9 MG/DL (1.3-2.1); PHOSPHORUS 4.4 MG/DL (2.3-4.7)
--- NOTE | 2018-02-20 06:36 | Diagnostic Imaging Report ---
EXAM: Abdomen 1 Views INDICATION: respiratory status ^[id number] ^0510 COMPARISON: KUB 02/19/2018, CT chest abdomen and pelvis 02/14/2018 FINDINGS: NG/OG tube with tip overlying the expected distal gastric body. Right percutaneous nephrostomy tube again noted. Neurostimulator device overlying the right lower quadrant with leads overlying the mid sacrum. Mild amount of stool in the colon. No dilated loops of small bowel. Large calcification overlying the left kidney is unchanged. No abnormal soft tissue masses. Advanced degenerative changes in the lumbar spine and pelvis. Surgical clips overlying the pelvis. IMPRESSION: NG/OG tube with tip overlies the distal gastric body. Signed by: DR. Mic Valentin MD on 02/20/2018 6:33 AM
--- NOTE | 2018-02-20 06:39 | Diagnostic Imaging Report ---
EXAMINATION: CHEST SINGLE (PORTABLE) INDICATION: Intubated COMPARISON: Chest radiograph 02/19/2018 FINDINGS: AP view TUBES and LINES: Right IJ central venous catheter tip overlies the mid SVC, unchanged. Infradiaphragmatic NG/OG tube. LUNGS: Lungs are well inflated. Stable bibasilar atelectasis. New bilateral interstitial edema. There is no evidence of pneumonia or pulmonary edema. PLEURA: Trace bilateral pleural effusions. No pneumothorax. Skin fold projects over the right lung and apex with lung markings seen peripherally. HEART AND MEDIASTINUM: The cardiac silhouette is within normal limits. Tortuous thoracic aorta with suspected ectasia of the aortic arch. BONES AND SOFT TISSUES: No acute osseous lesion. Soft tissues are unremarkable. UPPER ABDOMEN: No free air under the diaphragm. IMPRESSION: Stable bibasilar atelectasis and interstitial edema. Signed by: DR. Mic Valentin MD on 02/20/2018 6:36 AM
--- NOTE | 2018-02-20 06:50 | NUR ---
Pt sleeping soundly and no family present. Occasional Caregiver left a card describing availability of installment dealer and instructions on how to contact a installment dealer. JAZMIN SMITH Occasional Caregiver Spiritual Care Department O: [phone] Pager: [phone] ([phone] number calling from)
--- NOTE | 2018-02-20 07:00 | NUR ---
Bedside report from BURT Meléndez.
--- NOTE | 2018-02-20 07:20 | NUR ---
Dr Estrada to bedside. 0740 Patient to 4L GA.
[2018-02-20 07:38] LABS: EOSINOPHILS % (MANUAL) 1 % (0-7); LYMPHOCYTES % (MANUAL) 18 % (19-48); METAMYELOCYTES % (MANUAL) 3 % (0-0); MONOCYTES % (MANUAL) 7 % (3.4-9.0); MYELOCYTES % (MANUAL) 1 % (0-0); NEUTROPHILS % (MANUAL) 70 % (40-74)
[2018-02-20 07:39] LABS: ANISOCYTOSIS MODE; HYPOCHROMASIA SLIGHT; PLATELET ESTIMATE ADEQUATE; PLATELET MORPHOLOGY COMMENT FEW LARGE; POIKILOCYTOSIS SLIGHT; RBC MORPHOLOGY COMMENT ABNORMAL
[2018-02-20] MEDS: IPRATROPIUM BROMIDE 0.02% 2.5 ML NEB NEB PRN ×2 (07:43→15:50)
[2018-02-20] MEDS ORDERED: POTASSIUM CHLORIDE 20MEQ/100ML 100 ML IV ONE (08:00)
[2018-02-20] MEDS: PANTOPRAZOLE 40 MG 10ML VIAL IV SCH (09:22)
[2018-02-20] MEDS: BALSAM PERU/CASTOR OIL 60 GM OINT...G. TP SCH ×2 (09:24→17:09)
[2018-02-20] MEDS: HEPARIN SOD (PORCINE) 5,000 UNIT/ML VIAL SC SCH (09:24)
[2018-02-20] MEDS: METOPROLOL TARTRATE 50 MG TAB PO SCH ×2 (09:24→16:00)
[2018-02-20] MEDS ORDERED: POTASSIUM CHLORIDE 20MEQ/15ML UDC NG NR (13:45)
[2018-02-20] MEDS: CEFTRIAXONE SOD 2 GM/NS 100 ML 100 ML IV SCH (14:10)
--- NOTE | 2018-02-20 14:21 | NUR ---
Nutrition Intervention Note RD Recommendation for Physician: - Rec GI soft diet as medically feasible; diet texture per INSTALLER SOFT TOP - Consider Ensure compact BID when PO <50% - Rec probiotics for gut health - Encourage PO and hydration - Monitor labs, replace low lytes Plan of Care: RD following, monitoring for tolerance and adequacy Nutrition reason for involvement: Follow up Primary Diagnose(s): small-bowel obstruction or intestinal obstruction likely due to adhesions with associated large hernia, acute renal failure PMH: Chronic kidney disease, ureterostomy/ileal conduit obstruction, recurrent urinary tract infection, HTN, insomnia, reflux, L renal atrophy, CKD, pancreatitis, kidney stone, hypertension, recurrent UTI, renal atrophy, GERD, neurogenic bladder, ileal conduit, and chronic right hydronephrosis. GI: abd soft, round, flatus present , LBM 02/19, NGT present Skin: stage I to right heel, DTI to sacrum and rash to right hip per wound care Labs: (02/20) Na 147 H, BUN 60 H, creatinine 2.29 H (02/18) BUN 55 H, Creatinine 2.47 H, Glucose 145 H, Ca 8.3 L (02/17) BUN 58 H, Creatinine 2.72 H, Glucose 168 H, Ca 8.2 L Meds: heparin, protonix Ht: 64in Wt: 183lb 02/12, 242lb 02/18, 228lb 02/20 (inaccurate weight taken?) BMI: 31.4kg/m2 IBW: 120lb RD Assessment: (02/20) Chart reviewed. Pt is extubated and off ventilation. TPN discontinued. INSTALLER SOFT TOP is consulted for swallow evaluation. Pt will remain on TF with Nepro @40mL/hr until swallow eval is completed. Visited pt in the room. Pt is awake, alert and in no acute distress. Per family, pt has some diarrhea and stool culture has been obtained. Otherwise, pt has no other GI complains. Will continue to monitor and follow. (02/18) Chart reviewed. Pt remains intubated and ventilated. Per RN, pt will start TF while weaning off TPN. Renal function has improved; no dialysis. Phosphorus and potassium levels have been stable. No GI complains noted. Flatus present. RD rec continuous TF with Vital AF 1.2 [place] @45mL/hr, providing 1296kcal, 81g protein, and 876mL fluids. Free water flushes of 30mL q 4hr. If PO is feasible and % meal intake >50%, d/c TF. Discussed with nursing. Will continue to monitor and follow. (02/17) Chart reviewed. Pt was discussed during rounds. Visited pt in the room. Pt remains intubated and ventilated. No surgery intervention planned for SBO. NGT on suction, still draining dark fluids. Pt is currently receiving standard TPN @ 60mL/hr with addition of 25g lipid on MWF, which is meeting her protein and calorie needs. Family is aware of the purpose of TPN. No phosphorus and magnesium drawn for today; RN is aware. Will continue to monitor and follow. (02/13) Chart reviewed. Labs and meds reviewed. 77 yo F, who is admitted for abdominal pain. R nephrostomy catheter placed today. Positive urine culture. Visited pt in the room. Family on bedside provided info. NGT on suction, still draining dark fluids. 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 Family doesnt suspect any recent weight loss with stable weight ~175lb. Pt was able to chew and swallow without any issue at home. Code sepsis was called shortly after I left the room. Pt was transferred to ICU 194. Will continue to monitor and follow. Current Diet: NPO Malnutrition Evaluation (02/13) The patient does not meet criteria for a specified degree of malnutrition at this time. Will re-evaluate at follow-up as appropriate. Energy intake: <75% of estimated energy requirements for >7 days Weight loss: None per family. No physical sign of malnutrition upon observation, with BMI of 31.4kg/m2. Estimated Nutritional Needs: Calories: 1210 1375kcal (22-25kcal/kg ) Weight used : [place] body weight Protein : 83 138g (1.5-2.5g/kg) Weight used: [place] body weight Diet Adequacy: Meeting calorie needs, Meeting protein needs - TF Diet Education Needs Assessment: Diet education not indicated. Nutrition Care Level: mod Nutrition Diagnosis: Inadequate oral intake related to current medical status as evidenced by pt requiring TF as main source of nutrition. Goal: Patient will meet 75-100% of estimated needs by follow up Progress: Some progress Interventions: Rate, composition, modified diet, commercial beverage, collaboration with other providers Monitoring/Evaluation: Total energy intake, Total protein intake, formula/solution, modified diet, liquid supplement, Weight change Signed: Leeann Mariee, MS, RD, LD
--- NOTE | 2018-02-20 14:30 | NUR ---
Full bath and linen change provided.
--- NOTE | 2018-02-20 15:00 | NUR ---
Dr Leonard to bedside; patient with no concerns presently.
[2018-02-20] MEDS ORDERED: POTASSIUM CHLORIDE 20MEQ/15ML UDC ONE (15:35)
[2018-02-20] MEDS: NOREPINEPHRINE 8 MG/D5W 250 ML 250 ML IV SCH (16:45)
--- NOTE | 2018-02-20 16:50 | NUR ---
PATIENT EXTUBATED. PATIENT FEEDING TRANSITIONING. TUBE FEEDING PLACED ON HOLD DUE TO LIQUID STOOL. CM DISCUSSED OPTIONS WITH DIETARY. MANAGER OF SECURITY TO FOLLOW UP WITH PROPER NUTRITION RECOMMENDATIONS.
--- NOTE | 2018-02-20 17:41 | NUR ---
Dr Woody to bedside. "No more than 40 mL/hour tube feeding." Patient with frequent cough, orders rec'd. Patient and with no concern presently.
[2018-02-20] MEDS: GUAIFENESIN/DEXTROMETHORPHAN LIQD 5 ML UDC NG PRN (18:06)
[2018-02-21] VITALS (16 sets, daily range): BP systolic 125–170; BP diastolic 56–99
[2018-02-21] MEDS: GUAIFENESIN/DEXTROMETHORPHAN LIQD 5 ML UDC NG PRN ×2 (00:57→12:27)
[2018-02-21] MEDS: METOPROLOL TARTRATE INJ 1 MG/ML VIAL IV PRN ×2 (00:57→10:03)
[2018-02-21] MEDS: ACETAMINOPHEN 325 MG TAB PO PRN ×2 (02:55→12:27)
[2018-02-21 03:51] LABS: BASOPHILS # (AUTO) 0.2 (0.0-0.1); BASOPHILS % 0.9 % (0.0-1.0); EOSINOPHILS # (AUTO) 0.1 (0.0-0.4); EOSINOPHILS % 0.5 % (0.0-6.0); HEMATOCRIT 37.8 % (34.2-44.1); HEMOGLOBIN 11.5 g/dL (12.0-16.0); LYMPHOCYTES # (AUTO) 5.6 (1.0-3.2); LYMPHOCYTES % 30.6 % (18.0-39.1); MEAN CORPUSCULAR HEMOGLOBIN 30.7 pg (28-32); MEAN CORPUSCULAR HGB CONC 30.4 g/dL (31-35); MEAN CORPUSCULAR VOLUME 101.1 fL (81-99); MONOCYTES # (AUTO) 1.3 (0.2-0.8); MONOCYTES % 7.1 % (4.4-11.3); NEUTROPHILS # (AUTO) 10.1 (2.1-6.9); NEUTROPHILS % 54.9 % (38.7-80.0); PLATELET COUNT 355 x10e3/uL (140-360); RED BLOOD COUNT 3.74 x10e6/uL (3.6-5.1); RED CELL DISTRIBUTION WIDTH 18.2 % (11.7-14.4)
[2018-02-21 04:11] LABS: ALBUMIN 1.7 g/dL (3.5-5.0); ALBUMIN/GLOBULIN RATIO 0.4 (0.8-2.0); ANION GAP 18.4 mmol/L (8-16); CALCIUM 9.4 mg/dL (8.4-10.2); CREATININE, SERUM 2.34 mg/dL (0.57-1.11)
[2018-02-21 04:15] LABS: POTASSIUM 4.4 mmol/L (3.5-5.1)
--- NOTE | 2018-02-21 04:37 | Diagnostic Imaging Report ---
EXAMINATION: CHEST SINGLE (PORTABLE) INDICATION: Intubated COMPARISON: Chest radiograph 02/20/2018 FINDINGS: AP view TUBES and LINES: Right IJ central venous catheter tip overlies the mid SVC, unchanged. Infradiaphragmatic NG/OG tube. LUNGS: Lungs are well inflated. Persistent interstitial edema with increased patchy right upper lobe and stable bibasilar opacities. PLEURA: Trace bilateral pleural effusions. No pneumothorax. HEART AND MEDIASTINUM: The cardiac silhouette is within normal limits. Tortuous thoracic aorta with suspected ectasia of the aortic arch. BONES AND SOFT TISSUES: No acute osseous lesion. Soft tissues are unremarkable. UPPER ABDOMEN: No free air under the diaphragm. IMPRESSION: Interstitial edema with increasing right upper lobe opacity which may represent edema or infection. Signed by: DR. Mic Valentin MD on 02/21/2018 4:33 AM
--- NOTE | 2018-02-21 04:45 | NUR ---
Pt went into respiratory distress so myself and another nurse (Florinda) went into the room and the patient had blood coming from her mouth and nose after having NT suction prior by the respiratory therapist. Roger up some labs and had the morning chest xray ordered early. Homar came back elevated 2380. Will call Pulmonary with suspicion of a PE.
--- NOTE | 2018-02-21 05:15 | NUR ---
spoke with Dr. Pineda about the elevated D-dimmer. Pt can't have CT scan due to elevated creat levels. He ordered all four extremities to have a Doppler to rule out possible DVT or PE
[2018-02-21] MEDS: METRONIDAZOLE 500MG/NS 100ML 100 ML IV SCH (05:53)
--- NOTE | 2018-02-21 06:38 | NUR ---
Change pts central line dressing.
[2018-02-21 08:42] LABS: ANISOCYTOSIS MODERATE; BAND NEUTROPHILS % (MANUAL) 1 %; HYPOCHROMASIA SLIGHT; LYMPHOCYTES % (MANUAL) 20 % (19-48); METAMYELOCYTES % (MANUAL) 3 % (0-0); MONOCYTES % (MANUAL) 6 % (3.4-9.0); MYELOCYTES % (MANUAL) 2 % (0-0); NEUTROPHILS % (MANUAL) 63 % (40-74); RBC MORPHOLOGY COMMENT ABNORMAL
[2018-02-21 08:43] LABS: PLATELET ESTIMATE ADEQUATE; PLATELET MORPHOLOGY COMMENT FEW LARGE
[2018-02-21] MEDS: BALSAM PERU/CASTOR OIL 60 GM OINT...G. TP SCH ×2 (09:15→16:24)
--- NOTE | 2018-02-21 09:22 | NUR ---
updated Pablo Sood with am chemistries. new orders received for D5w @70ml/hr x1.5L only
[2018-02-21] MEDS ORDERED: VANCOMYCIN 1GM/NS 250 ML 250 ML IV ONE (09:30)
[2018-02-21] MEDS: DEXTROSE 5% 1,000 ML IV SCH (10:00)
[2018-02-21] MEDS: HEPARIN SOD (PORCINE) 5,000 UNIT/ML VIAL SC SCH ×2 (10:01→21:15)
[2018-02-21] MEDS: PANTOPRAZOLE 40 MG 10ML VIAL IV SCH (10:01)
[2018-02-21] MEDS: IPRATROPIUM BROMIDE 0.02% 2.5 ML NEB NEB PRN ×2 (11:28→15:15)
[2018-02-21] MEDS ORDERED: TRAMADOL HCL 50 MG TAB ONE (13:15)
[2018-02-21] MEDS: METOPROLOL TARTRATE 50 MG TAB PO SCH ×2 (13:20→21:35)
[2018-02-21] MEDS: TRAMADOL HCL 50 MG TAB PO SCH ×2 (13:20→21:35)
[2018-02-21] MEDS: CEFTRIAXONE SOD 2 GM/NS 100 ML 100 ML IV SCH (13:20)
[2018-02-21] MEDS ORDERED: SUCCINYLCHOLINE CHLORIDE 20 MG/ML 10ML VIAL IV ONE (14:12)
[2018-02-21] MEDS: CITRIC ACID/SODIUM CITRATE 30 ML UDC PO SCH (16:23)
[2018-02-21] MEDS: TRAMADOL HCL 50 MG TAB PO PRN (16:24)
[2018-02-21] MEDS: NOREPINEPHRINE 8 MG/D5W 250 ML 250 ML IV SCH (16:25)
[2018-02-21] MEDS: IPRATROPIUM BROMIDE 0.02% 2.5 ML NEB NEB SCH (18:30)
[2018-02-21] MEDS: LEVALBUTEROL HCL SOLN NEBU 0.63 MG/3 ML NEB INH SCH (18:30)
[2018-02-22] VITALS (26 sets, daily range): BP systolic 91–163; BP diastolic 43–109
[2018-02-22] MEDS: DEXTROSE 5% 1,000 ML IV SCH (00:10)
[2018-02-22] MEDS: IPRATROPIUM BROMIDE 0.02% 2.5 ML NEB NEB SCH ×4 (01:55→19:15)
[2018-02-22] MEDS: LEVALBUTEROL HCL SOLN NEBU 0.63 MG/3 ML NEB INH SCH ×4 (01:55→19:15)
[2018-02-22 04:21] LABS: BASOPHILS % 0.4 % (0.0-1.0); EOSINOPHILS % 0.3 % (0.0-6.0); HEMATOCRIT 30.4 % (34.2-44.1); HEMOGLOBIN 9.4 g/dL (12.0-16.0); LYMPHOCYTES # (AUTO) 2.1 (1.0-3.2); MEAN CORPUSCULAR HEMOGLOBIN 31.1 pg (28-32); MEAN CORPUSCULAR HGB CONC 30.9 g/dL (31-35); MEAN CORPUSCULAR VOLUME 100.7 fL (81-99); MONOCYTES # (AUTO) 0.7 (0.2-0.8); MONOCYTES % 6.8 % (4.4-11.3); NEUTROPHILS # (AUTO) 6.4 (2.1-6.9); NEUTROPHILS % 66.8 % (38.7-80.0); PLATELET COUNT 244 x10e3/uL (140-360); RED BLOOD COUNT 3.02 x10e6/uL (3.6-5.1); RED CELL DISTRIBUTION WIDTH 18.4 % (11.7-14.4)
[2018-02-22 04:46] LABS: ANION GAP 15.1 mmol/L (8-16); CALCIUM 8.6 mg/dL (8.4-10.2); CREATININE, SERUM 2.38 mg/dL (0.57-1.11); MAGNESIUM 1.8 MG/DL (1.3-2.1); PHOSPHORUS 2.9 MG/DL (2.3-4.7); POTASSIUM 3.1 mmol/L (3.5-5.1)
--- NOTE | 2018-02-22 06:15 | Diagnostic Imaging Report ---
EXAMINATION: CHEST SINGLE (PORTABLE) INDICATION: ^Intubated ^Y COMPARISON: Chest radiograph 02/21/2018 FINDINGS: AP view TUBES and LINES: Right IJ central venous catheter tip overlies the mid SVC, unchanged. Infradiaphragmatic NG/OG tube. LUNGS: Lungs are well inflated. Persistent interstitial edema with decreased patchy right upper lobe and stable bibasilar opacities. PLEURA: Trace bilateral pleural effusions. No pneumothorax. HEART AND MEDIASTINUM: The cardiac silhouette is within normal limits. Tortuous thoracic aorta with suspected ectasia of the aortic arch. BONES AND SOFT TISSUES: No acute osseous lesion. Soft tissues are unremarkable. UPPER ABDOMEN: No free air under the diaphragm. IMPRESSION: Stable interstitial edema with decreased right upper lobe opacity. Stable small effusions with adjacent atelectasis. Signed by: DR. Mic Valentin MD on 02/22/2018 6:12 AM
[2018-02-22 06:21] LABS: ANISOCYTOSIS SLIGHT; BAND NEUTROPHILS % (MANUAL) 2 %; EOSINOPHILS % (MANUAL) 1 % (0-7); LYMPHOCYTES % (MANUAL) 20 % (19-48); METAMYELOCYTES % (MANUAL) 1 % (0-0); MONOCYTES % (MANUAL) 3 % (3.4-9.0); NEUTROPHILS % (MANUAL) 73 % (40-74); PLATELET ESTIMATE ADEQUATE; PLATELET MORPHOLOGY COMMENT NORMAL; RBC MORPHOLOGY COMMENT ABNORMAL
[2018-02-22] MEDS: TRAMADOL HCL 50 MG TAB PO SCH ×3 (06:22→21:23)
[2018-02-22] MEDS: METOPROLOL TARTRATE 50 MG TAB PO SCH ×3 (06:23→21:23)
[2018-02-22] MEDS: BALSAM PERU/CASTOR OIL 60 GM OINT...G. TP SCH ×2 (08:14→17:00)
--- NOTE | 2018-02-22 08:18 | NUR ---
patient restless and moaning continuous with her eyes closed. security shift supervisor reported patient did not sleep. vital signs remain stable. room air saturation at 96% patient has been repositioned several times with no relief. pain medication given with no change noted. patient reports no pain or distress when you ask her a direct question and she focuses on you then she closes her eyes and begins moaning again. updated Dr. Pineda and received new order. will continue to monitor. patient is not pulling at lines or attempting to get out of bed. Addendum: 02/22/18 at 0936 by Elham Chaenl RN patient noted to have good response with interventions. pt no longer restless and moaning continuously.
[2018-02-22] MEDS: PANTOPRAZOLE 40 MG 10ML VIAL IV SCH (08:30)
[2018-02-22] MEDS ORDERED: HALOPERIDOL LACTATE 5 MG/ML VIAL IM NR (08:30)
[2018-02-22] MEDS: CITRIC ACID/SODIUM CITRATE 30 ML UDC PO SCH ×2 (08:30→17:42)
[2018-02-22] MEDS: HEPARIN SOD (PORCINE) 5,000 UNIT/ML VIAL SC SCH ×2 (08:30→21:24)
--- NOTE | 2018-02-22 10:25 | NUR ---
paged Dr. Leonard ( occupational therapy co director) to update with am electrolytes. Dr. Pineda at bedside, okay to give KCL 20meq ivpb xonce for K+3.1.
[2018-02-22] MEDS ORDERED: POTASSIUM CHLORIDE 20MEQ/100ML 100 ML IV ONE ×2 (10:30→15:30)
[2018-02-22] MEDS ORDERED: SODIUM CHLORIDE 0.9% 250ML 250 ML ONE (11:11)
[2018-02-22] MEDS: ACETAMINOPHEN 325 MG TAB PO PRN ×2 (11:26→17:45)
[2018-02-22] MEDS ORDERED: FUROSEMIDE INJ 10 MG/ML 4 ML VIAL ONE (12:34)
[2018-02-22] MEDS ORDERED: FUROSEMIDE INJ 10 MG/ML 4 ML VIAL IV NR (13:00)
[2018-02-22] MEDS: CEFTRIAXONE SOD 2 GM/NS 100 ML 100 ML IV SCH (13:57)
--- NOTE | 2018-02-22 14:01 | NUR ---
patient placed on bipap with good effect. pt is calmer at this time., [id number], hr 98, bp 130/65. family in room.
[2018-02-22] MEDS: NOREPINEPHRINE 8 MG/D5W 250 ML 250 ML IV SCH (14:10)
[2018-02-22] MEDS: METRONIDAZOLE 500MG/NS 100ML 100 ML IV SCH ×2 (14:35→21:23)
--- NOTE | 2018-02-22 14:54 | NUR ---
Dr. Salazar at bedside, updated with patient status. order to continue vanc 1gm Q48hr
[2018-02-22] MEDS: QUETIAPINE FUMARATE 25 MG TAB PO SCH (21:23)
[2018-02-23] VITALS (27 sets, daily range): BP systolic 93–159; BP diastolic 47–95
--- NOTE | 2018-02-23 01:51 | NUR ---
patient continually removing bi-pap mask, easily redirected but immediately returns to same behaviors. Patient has broken bi-pap mask x 2 this shift. restraints placed on bilateral wrists to prevent removel of and/or damage to bi-pap mask
[2018-02-23] MEDS: IPRATROPIUM BROMIDE 0.02% 2.5 ML NEB NEB SCH ×4 (01:55→19:15)
[2018-02-23] MEDS: LEVALBUTEROL HCL SOLN NEBU 0.63 MG/3 ML NEB INH SCH ×4 (01:55→19:15)
--- NOTE | 2018-02-23 03:22 | NUR ---
PATIENT HAD SMALL LIQUID BM, SPONGE BATH AND TRES CARE PROVIDED, GOWN AND LINENS CHANGED. CHG BATH PROVIDED ALSO AT THIS TIME
--- NOTE | 2018-02-23 03:23 | NUR ---
WOUND CARE DONE TO SACRUM, CLEANSED WITH SOAP AND WATER, VENELEX OINTMENT AND ALLEVYN DRESSING APPLIED
[2018-02-23 04:15] LABS: BASOPHILS % 0.3 % (0.0-1.0); EOSINOPHILS # (AUTO) 0.1 (0.0-0.4); EOSINOPHILS % 0.8 % (0.0-6.0); HEMOGLOBIN 8.2 g/dL (12.0-16.0); LYMPHOCYTES # (AUTO) 1.8 (1.0-3.2); LYMPHOCYTES % 29.3 % (18.0-39.1); MEAN CORPUSCULAR HEMOGLOBIN 31.1 pg (28-32); MEAN CORPUSCULAR HGB CONC 30.4 g/dL (31-35); MEAN CORPUSCULAR VOLUME 102.3 fL (81-99); MONOCYTES # (AUTO) 0.4 (0.2-0.8); MONOCYTES % 5.8 % (4.4-11.3); NEUTROPHILS # (AUTO) 3.8 (2.1-6.9); PLATELET COUNT 177 x10e3/uL (140-360); RED BLOOD COUNT 2.64 x10e6/uL (3.6-5.1); RED CELL DISTRIBUTION WIDTH 18.5 % (11.7-14.4)
[2018-02-23 04:30] LABS: ANION GAP 14.7 mmol/L (8-16); CALCIUM 8.2 mg/dL (8.4-10.2); CREATININE, SERUM 2.33 mg/dL (0.57-1.11); MAGNESIUM 1.4 MG/DL (1.3-2.1); PHOSPHORUS 3.2 MG/DL (2.3-4.7); POTASSIUM 3.7 mmol/L (3.5-5.1)
[2018-02-23] MEDS: METOPROLOL TARTRATE 50 MG TAB PO SCH ×3 (06:20→21:52)
[2018-02-23] MEDS: METRONIDAZOLE 500MG/NS 100ML 100 ML IV SCH ×3 (06:20→21:52)
[2018-02-23] MEDS: TRAMADOL HCL 50 MG TAB PO SCH ×3 (06:21→21:52)
[2018-02-23] MEDS: BALSAM PERU/CASTOR OIL 60 GM OINT...G. TP SCH ×2 (09:37→17:24)
[2018-02-23] MEDS: VANCOMYCIN 1GM/NS 250 ML 250 ML IV SCH (09:41)
[2018-02-23] MEDS: PANTOPRAZOLE 40 MG 10ML VIAL IV SCH (09:41)
[2018-02-23] MEDS: CITRIC ACID/SODIUM CITRATE 30 ML UDC PO SCH ×2 (09:41→17:24)
[2018-02-23] MEDS: HEPARIN SOD (PORCINE) 5,000 UNIT/ML VIAL SC SCH (09:44)
[2018-02-23] MEDS: ACETAMINOPHEN 325 MG TAB PO PRN (10:00)
[2018-02-23] MEDS: CEFTRIAXONE SOD 2 GM/NS 100 ML 100 ML IV SCH (13:15)
[2018-02-23] MEDS: NOREPINEPHRINE 8 MG/D5W 250 ML 250 ML IV SCH (15:13)
[2018-02-23] MEDS: QUETIAPINE FUMARATE 25 MG TAB PO SCH (21:16)
[2018-02-23] MEDS: ENOXAPARIN SODIUM INJ 100 MG/ML SYR SC SCH (21:16)
[2018-02-24] VITALS (25 sets, daily range): BP systolic 109–159; BP diastolic 52–105
--- NOTE | 2018-02-24 01:28 | NUR ---
Received patient stable but confused, no complaints of pain raised, on continuos feeds, absorbing
[2018-02-24] MEDS: TRAMADOL HCL 50 MG TAB PO SCH ×3 (06:00→21:48)
[2018-02-24] MEDS: METRONIDAZOLE 500MG/NS 100ML 100 ML IV SCH ×3 (06:00→21:47)
[2018-02-24] MEDS: METOPROLOL TARTRATE 50 MG TAB PO SCH ×3 (06:01→21:47)
[2018-02-24] MEDS: LEVALBUTEROL HCL SOLN NEBU 0.63 MG/3 ML NEB INH SCH ×4 (07:24→19:15)
[2018-02-24] MEDS: IPRATROPIUM BROMIDE 0.02% 2.5 ML NEB NEB SCH ×4 (07:25→19:15)
[2018-02-24] MEDS: BALSAM PERU/CASTOR OIL 60 GM OINT...G. TP SCH ×2 (09:03→16:04)
[2018-02-24] MEDS: CITRIC ACID/SODIUM CITRATE 30 ML UDC PO SCH ×2 (09:12→16:04)
[2018-02-24] MEDS: ACETAMINOPHEN 325 MG TAB PO PRN ×2 (09:12→15:30)
[2018-02-24] MEDS: PANTOPRAZOLE 40 MG 10ML VIAL IV SCH (09:12)
--- NOTE | 2018-02-24 11:05 | NUR ---
ASSESSMENT: Spiritual concern Pt's family remain hopeful. Family continuing to look for small improvements. Intervention: Facilitated conversation about update on pt's illness. Outcome: Will continue to follow as able. JAZMIN SMITH Relay Tester Spiritual Care Department O: [phone] Pager: [phone] ([phone] number calling from)
--- NOTE | 2018-02-24 12:38 | NUR ---
patient tolerating tube feeds. plan on mbs at 1330 with speech therapist. linens changed as urostomy leaking. assisted with changing of urostomy. pt tolerated well. wound care completed. pt being turned [id number]. pt tired at this time from busy morning.
[2018-02-24] MEDS ORDERED: SODIUM CHLORIDE 0.9% 250ML 500 ML ONE (15:08)
[2018-02-24] MEDS: CEFTRIAXONE SOD 2 GM/NS 100 ML 100 ML IV SCH (15:09)
[2018-02-24] MEDS: FLUCONAZOLE 100 MG/NS 50 ML 50 ML IV SCH (15:15)
[2018-02-24] MEDS: COLESTIPOL HCL 1 G TAB PO PRN (16:15)
--- NOTE | 2018-02-24 16:15 | NUR ---
patient failed MBS today, speech recommended neuromuscular electrical stimulation(NMES). I updated Dr. Woody and he is okay with NMES. New orders received for SNF eval and okay to transfer to [facility].
--- NOTE | 2018-02-24 16:17 | NUR ---
Okay with pulmonary and urology to downgraded patient as well.
--- NOTE | 2018-02-24 19:30 | NUR ---
received patient stable but confused, no complaints of pain raised.
[2018-02-24] MEDS: ENOXAPARIN SODIUM INJ 100 MG/ML SYR SC SCH (20:41)
[2018-02-24] MEDS: QUETIAPINE FUMARATE 25 MG TAB PO SCH (20:41)
--- NOTE | 2018-02-24 22:00 | NUR ---
Patient on 2 hourly repositioning for comfort, had a large BM, cleaned , dirty linens changed
[2018-02-25] VITALS (20 sets, daily range): BP systolic 135–175; BP diastolic 66–110
--- NOTE | 2018-02-25 01:33 | NUR ---
Remains on room air, saturating well above 90%, calmly asleep
--- NOTE | 2018-02-25 05:00 | NUR ---
CHG bath given to the patient, dirty linens changed, urostomy bag changed. Patient repositioned for comfort, hemodynamically stable
[2018-02-25] MEDS: ACETAMINOPHEN 325 MG TAB PO PRN ×2 (06:00→16:37)
[2018-02-25] MEDS: METOPROLOL TARTRATE 50 MG TAB PO SCH ×2 (06:00→18:36)
[2018-02-25] MEDS: METRONIDAZOLE 500MG/NS 100ML 100 ML IV SCH ×3 (06:00→22:00)
[2018-02-25] MEDS: TRAMADOL HCL 50 MG TAB PO SCH ×3 (06:00→23:30)
--- NOTE | 2018-02-25 07:03 | NUR ---
handed over stable
[2018-02-25] MEDS: LEVALBUTEROL HCL SOLN NEBU 0.63 MG/3 ML NEB INH SCH ×4 (07:15→19:30)
[2018-02-25] MEDS: IPRATROPIUM BROMIDE 0.02% 2.5 ML NEB NEB SCH ×4 (07:15→19:30)
--- NOTE | 2018-02-25 07:54 | Diagnostic Imaging Report ---
PROCEDURE:X-RAY MODIFIED BARIUM SWALLOW COMPARISON:None. INDICATIONS:Not provided. DISCUSSION:Fluoroscopic examination was performed in conjunction with speech pathology, during swallowing of a variety of thin and thick liquid consistencies. CONCLUSION:Laryngeal penetration with thin and nectar thick liquids. Tracheal aspiration during the swallow with thin and nectar thick liquids. Tracheal aspiration after the swallow with residue from pure and honey thick consistencies. Please see the report from speech pathology for complete details. Dictated by: Anthony Dickey M.D. on 02/25/2018 at 8:04 Electronically approved by: Anthony Dickey M.D. on 02/25/2018 at 8:04
--- NOTE | 2018-02-25 09:37 | NUR ---
ST Note: Attempted to complete initial session of dysphagia therapy but pt dirty. Will return later time permitting.
[2018-02-25] MEDS: PANTOPRAZOLE 40 MG 10ML VIAL IV SCH (10:43)
[2018-02-25] MEDS: CITRIC ACID/SODIUM CITRATE 30 ML UDC PO SCH ×2 (10:43→16:37)
[2018-02-25] MEDS: VANCOMYCIN 1GM/NS 250 ML 250 ML IV SCH (10:43)
[2018-02-25] MEDS: BALSAM PERU/CASTOR OIL 60 GM OINT...G. TP SCH ×2 (10:44→16:38)
[2018-02-25] MEDS: TRAMADOL HCL 50 MG TAB PO PRN ×2 (11:08→19:21)
--- NOTE | 2018-02-25 11:45 | NUR ---
ST Note: Attempted to see pt for dysphagia therapy. Pt just completed Physical therapy and exhausted, requested I return later. Will return later time permitting.
--- NOTE | 2018-02-25 11:50 | NUR ---
spoke to dr. talley about knee pain and diarrhea, see orders
[2018-02-25 11:59] LABS: ALBUMIN 1.6 g/dL (3.5-5.0); ALBUMIN/GLOBULIN RATIO 0.4 (0.8-2.0); ALKALINE PHOSPHATASE 71 IU/L (40-150); ANION GAP 14.3 mmol/L (8-16); BLOOD UREA NITROGEN 60 mg/dL (7-26); BUN/CREATININE RATIO 24 (6-25); CALCIUM 8.5 mg/dL (8.4-10.2); CARBON DIOXIDE 22 mmol/L (22-29); CHLORIDE 112 mmol/L (98-107); CREATININE, SERUM 2.45 mg/dL (0.57-1.11); EST GLOMERULAR FILTRATION RATE 19 ML/MIN (60-); GLUCOSE 113 mg/dL (74-118); POTASSIUM 3.3 mmol/L (3.5-5.1); SODIUM 145 mmol/L (136-145)
[2018-02-25 12:07] LABS: ALANINE AMINOTRANSFERASE < 6 IU/L (0-55)
[2018-02-25] MEDS ORDERED: POTASSIUM CHLORIDE 20MEQ/100ML 200 ML IV ONE (12:15)
--- NOTE | 2018-02-25 12:17 | Diagnostic Imaging Report ---
Exam: Right knee, 2 views History: Pain, swelling Comparison: None. Findings: Intact surgical hardware related to total right knee replacement. No periprosthetic displaced fracture. Suspected suprapatellar joint effusion, though the lateral radiograph is suboptimal.. Soft tissue swelling of the lower leg. Atherosclerotic vascular calcifications. Impression: No acute osseous abnormalities status post total right knee replacement. Signed by: Dr. Anthony Dickey M.D. on 02/25/2018 12:14 PM
--- NOTE | 2018-02-25 15:17 | NUR ---
Nutrition Intervention Note RD Recommendation for Physician: -Rec continuous TF with Jevity 1.2 @45mL/hr and 2pkt Beneprotein, providing 1346kcal, 72g protein and 872mL fluids. meet 100% of her est calorie needs and 85% of protein needs -Reduce free H2O flushes to 30mL q 4hr; additional fluids per MD discretion. -Monitor daily labs, replace low lytes, check for GI tolerance -If PO is feasible, rec GI soft diet; diet texture per C DEVELOPER -Rec Ensure compact BID to promote protein-calorie intake Plan of Care: RD following, monitoring for tolerance and adequacy, TF rec Nutrition reason for involvement: Follow up Primary Diagnose(s): small-bowel obstruction or intestinal obstruction likely due to adhesions with associated large hernia, acute renal failure PMH: Chronic kidney disease, ureterostomy/ileal conduit obstruction, recurrent urinary tract infection, HTN, insomnia, reflux, L renal atrophy, CKD, pancreatitis, kidney stone, hypertension, recurrent UTI, renal atrophy, GERD, neurogenic bladder, ileal conduit, and chronic right hydronephrosis. GI: abd non-tender, large, flatus present, LBM 02/25 Skin: stage I to right heel, DTI to sacrum and rash to right hip per wound care Labs: (02/25) K 3.3 L, BUN 60 H, Creatinine 2.45 H (02/20) Na 147 H, BUN 60 H, creatinine 2.29 H (02/18) BUN 55 H, Creatinine 2.47 H, Glucose 145 H, Ca 8.3 L (02/17) BUN 58 H, Creatinine 2.72 H, Glucose 168 H, Ca 8.2 L Meds: KCl, IVF, vancomycin, protonix Ht: 64in Wt: 183lb 02/12, 242lb 02/18, 228lb 02/20, 236lb 02/25 (excessive fluids gain from IVF) BMI: 31.4kg/m2 IBW: 120lb RD Assessment: (02/25) Chart reviewed. Pt was discussed during rounds. Pending swallow study. Per RN, pt has had minimal gastric residual with TF and diarrhea for several days. (-) stool culture. Diarrhea possibly due to meds and IVF. Visited pt in the room. Pt is awake and alert. No complains of nausea or vomiting. Nepro is running at 40ml/hr with 500mL water flushes q 8hr. Renal function is stable. RD spoke with RN (Phan) about changing TF to Jevity 1.2 @45mL/hr (fiber, lower osmolality, stable renal function) and rec probiotics to help with diarrhea. RD was told by RN that Dr. Leonard wanted to keep TF below 40mL/hr and increase free water flushes to 500mL q 6hr. Will continue to monitor and follow. (02/20) Chart reviewed. Pt is extubated and off ventilation. TPN discontinued. C DEVELOPER is consulted for swallow evaluation. Pt will remain on TF with Nepro @40mL/hr until swallow eval is completed. Visited pt in the room. Pt is awake, alert and in no acute distress. Per family, pt has some diarrhea and stool culture has been obtained. Otherwise, pt has no other GI complains. Will continue to monitor and follow. (02/18) Chart reviewed. Pt remains intubated and ventilated. Per RN, pt will start TF while weaning off TPN. Renal function has improved; no dialysis. Phosphorus and potassium levels have been stable. No GI complains noted. Flatus present. RD rec continuous TF with Vital AF 1.2 [place] @45mL/hr, providing 1296kcal, 81g protein, and 876mL fluids. Free water flushes of 30mL q 4hr. If PO is feasible and % meal intake >50%, d/c TF. Discussed with nursing. Will continue to monitor and follow. (02/17) Chart reviewed. Pt was discussed during rounds. Visited pt in the room. Pt remains intubated and ventilated. No surgery intervention planned for SBO. NGT on suction, still draining dark fluids. Pt is currently receiving standard TPN @ 60mL/hr with addition of 25g lipid on MWF, which is meeting her protein and calorie needs. Family is aware of the purpose of TPN. No phosphorus and magnesium drawn for today; RN is aware. Will continue to monitor and follow. (02/13) Chart reviewed. Labs and meds reviewed. 77 yo F, who is admitted for abdominal pain. R nephrostomy catheter placed today. Positive urine culture. Visited pt in the room. Family on bedside provided info. NGT on suction, still draining dark fluids. Per family, pt has been sick with fever and poor PO intake for over a week CASER. Family doesnt suspect any recent weight loss with stable weight ~175lb. Pt was able to chew and swallow without any issue at home. Code sepsis was called shortly after I left the room. Pt was transferred to ICU 194. Will continue to monitor and follow. Current Diet: NPO Malnutrition Evaluation (02/13) The patient does not meet criteria for a specified degree of malnutrition at this time. Will re-evaluate at follow-up as appropriate. Energy intake: <75% of estimated energy requirements for >7 days Weight loss: None per family. No physical sign of malnutrition upon observation, with BMI of 31.4kg/m2. Estimated Nutritional Needs: Calories: 1210 1375kcal (22-25kcal/kg ) Weight used : [place] body weight Protein : 83 138g (1.5-2.5g/kg) Weight used: [place] body weight Diet Adequacy: Meeting calorie needs, Meeting protein needs - TF Diet Education Needs Assessment: Diet education not indicated. Nutrition Care Level: low Nutrition Diagnosis: Inadequate oral intake related to current medical status as evidenced by pt requiring TF as main source of nutrition. Goal: Patient will meet 75-100% of estimated needs by follow up Progress: Some progress Interventions: Rate, composition, modified diet, commercial beverage, collaboration with other providers Monitoring/Evaluation: Total energy intake, Total protein intake, formula/solution, modified diet, liquid supplement, Weight change Signed: Leeann Mariee MS, RD, LD
--- NOTE | 2018-02-25 16:03 | NUR ---
SPOKE WITH WHOM STATES THAT THE OPTIONS I GAVE ARE NOT LOCAL TO [place] WHERE THEY LIVE AND IT IS TOO HARD WILL CHECK WITH RICARDO PI[employer]CE [employer] TO SEE IF THERE IS ANY OTHER LOCATIONS CLOSER TO THEM.
[2018-02-25] MEDS: COLESTIPOL HCL 1 G TAB PO PRN (16:08)
[2018-02-25] MEDS: LACTOBACILLUS ACIDOPHILUS CAPSULE PO SCH (16:37)
[2018-02-25] MEDS: FLUCONAZOLE 100 MG/NS 50 ML 50 ML IV SCH (16:37)
--- NOTE | 2018-02-25 19:30 | NUR ---
Received patient calm, on room air. Vitals stable, on continuous feeds
--- NOTE | 2018-02-25 20:30 | NUR ---
Patient had loose stool, cleaned, dirty linens changed, repositioned for comfort, awaiting transfer to [facility]
[2018-02-25] MEDS: QUETIAPINE FUMARATE 25 MG TAB PO SCH (20:53)
[2018-02-25] MEDS: ENOXAPARIN SODIUM INJ 100 MG/ML SYR SC SCH (20:53)
--- NOTE | 2018-02-25 21:30 | NUR ---
Patient handed over to Lindy YEH and transferred to room 188, stable
--- NOTE | 2018-02-25 22:00 | NUR ---
Received report on patient from ICU nurse. Patient arrived to floor via stretcher. Urostomy drained 400cc and illiostomy drained 100cc dark yellow fluids. Flushed urostomy with 10cc fluid. IV to right IJ 3L patent. NGT residual 10cc. Tele /.
--- NOTE | 2018-02-25 23:18 | NUR ---
Patient repositioned in bed. Applied barrier to groin area. Received pain meds as ordered.
[2018-02-26] VITALS (9 sets, daily range): BP systolic 116–169; BP diastolic 63–99
[2018-02-26] MEDS: IPRATROPIUM BROMIDE 0.02% 2.5 ML NEB NEB SCH ×4 (00:30→19:50)
[2018-02-26] MEDS: LEVALBUTEROL HCL SOLN NEBU 0.63 MG/3 ML NEB INH SCH ×4 (00:30→19:50)
--- NOTE | 2018-02-26 02:41 | NUR ---
Patient turned q2 hours and prn. Pt had med size liquid brown BM. Hob elevated 30-40 degrees, bed alarm on, SR up x2 and bed locked.
[2018-02-26 05:19] LABS: BASOPHILS % 0.4 % (0.0-1.0); EOSINOPHILS # (AUTO) 0.1 (0.0-0.4); EOSINOPHILS % 1.4 % (0.0-6.0); HEMATOCRIT 27.9 % (34.2-44.1); HEMOGLOBIN 8.6 g/dL (12.0-16.0); LYMPHOCYTES # (AUTO) 1.8 (1.0-3.2); MEAN CORPUSCULAR HGB CONC 30.8 g/dL (31-35); MEAN CORPUSCULAR VOLUME 100.7 fL (81-99); MONOCYTES # (AUTO) 0.7 (0.2-0.8); MONOCYTES % 9.5 % (4.4-11.3); NEUTROPHILS # (AUTO) 4.4 (2.1-6.9); NEUTROPHILS % 61.7 % (38.7-80.0); PLATELET COUNT 246 x10e3/uL (140-360); RED BLOOD COUNT 2.77 x10e6/uL (3.6-5.1); RED CELL DISTRIBUTION WIDTH 18.3 % (11.7-14.4)
[2018-02-26 05:45] LABS: ALBUMIN 1.4 g/dL (3.5-5.0); ALBUMIN/GLOBULIN RATIO 0.4 (0.8-2.0); ALKALINE PHOSPHATASE 62 IU/L (40-150); ANION GAP 14.8 mmol/L (8-16); BLOOD UREA NITROGEN 55 mg/dL (7-26); BUN/CREATININE RATIO 24 (6-25); CALCIUM 8.1 mg/dL (8.4-10.2); CARBON DIOXIDE 21 mmol/L (22-29); CHLORIDE 110 mmol/L (98-107); CREATININE, SERUM 2.33 mg/dL (0.57-1.11); EST GLOMERULAR FILTRATION RATE 20 ML/MIN (60-); GLUCOSE 126 mg/dL (74-118); POTASSIUM 3.8 mmol/L (3.5-5.1); SODIUM 142 mmol/L (136-145)
[2018-02-26 05:59] LABS: ALANINE AMINOTRANSFERASE < 6 IU/L (0-55)
[2018-02-26] MEDS: METOPROLOL TARTRATE 50 MG TAB PO SCH ×5 (06:00→23:43)
[2018-02-26] MEDS: METRONIDAZOLE 500MG/NS 100ML 100 ML IV SCH ×3 (06:00→21:32)
[2018-02-26 06:02] LABS: MAGNESIUM 1.3 MG/DL (1.3-2.1); PHOSPHORUS 2.8 MG/DL (2.3-4.7)
[2018-02-26] MEDS ORDERED: TRAMADOL HCL 50 MG TAB PO PRN (07:15)
[2018-02-26] MEDS ORDERED: MAGNESIUM SULFATE 2GM/50ML IV ONE (07:15)
[2018-02-26] MEDS ORDERED: POTASSIUM PHOSPHATE 20 MM in SODIUM CHLORIDE 0.9% 250ML 250 ML IV ONE (07:30)
[2018-02-26] MEDS ORDERED: MAGNESIUM SULFATE 2GM/50ML 50 ML IV ONE (07:30)
[2018-02-26] MEDS: CITRIC ACID/SODIUM CITRATE 30 ML UDC PO SCH ×2 (09:12→17:08)
[2018-02-26] MEDS: BALSAM PERU/CASTOR OIL 60 GM OINT...G. TP SCH ×2 (09:12→17:08)
[2018-02-26] MEDS: LACTOBACILLUS ACIDOPHILUS CAPSULE PO SCH ×2 (09:12→17:08)
[2018-02-26] MEDS: PANTOPRAZOLE 40 MG 10ML VIAL IV SCH (09:12)
--- NOTE | 2018-02-26 10:34 | Diagnostic Imaging Report ---
EXAM: XR CHEST 1 VIEW DATE: 02/26/2018 8:55 AM INDICATION: Pneumonia COMPARISON: 02/22/2018, no report available FINDINGS: Lines and Tubes: Right IJ catheter tip overlying SVC and NG tube extending past the inferior field of view, stable. Heart and Mediastinum: Poorly evaluated due to moderate rightward rotation. There is significant widening of the mediastinum with presumed tortuosity and/or ectasia of the aorta. Lungs and Pleura: Mild edema with bibasilar pleural-parenchymal opacities. Bones and Soft Tissues: No acute findings. IMPRESSION: 1. Mild edema with small effusions. Superimposed basilar atelectasis and/or pneumonia. 2. Mediastinal widening, incompletely evaluated. CT chest with contrast recommended. Signed by: Dr. Herbert Fink MD on 02/26/2018 10:30 AM
--- NOTE | 2018-02-26 10:49 | NUR ---
SPOKE WITH WHOM SONIA JONES SIGNED CHOICE FILED IN CHART AND GAVE COPY TO . WAS ABLE TO PRINT OUT A MAP FOR , HE IS HAPPY WITH PLACEMENT OPTION DUE TO IT BEING 3 MILES FROM HIS HOME, ADVISED THAT WILL NOT START PLACEMENT PROCESS UNTIL PEG TUBE IS PLACED. HE STATES TO KEEP HIM INFORMED.
[2018-02-26] MEDS: TRAMADOL HCL 50 MG TAB PO SCH ×2 (13:12→21:33)
--- NOTE | 2018-02-26 14:53 | NUR ---
WC Consult Visit Wound Care visit in regards to multiple appliance failures to right abdominal ileostomy. On arrival bag failing with clear yellow urine leaking at 6 0'clock. Appliance removed and cleansed with soapy water and rinsed with water and pat dry in clean fashion. Applied skin prep and single layer ekin ring and wound drain investor relations manager. Periwound noted to be mildly excoriated. Stoma pink and healthy. No redness or swelling noted to ostomy site. Periwound presents with small intact blister 0.4x0.3 noted to 5 o'clock. Nurse present at bedside and pt at bedside and education provided. is very knowledgable about her ostomy care. Will follow up 02/27/2018 and evaluate placement. Addendum: 02/26/18 at 1504 by Anton Moore RN Amended: Links added. Addendum: 02/27/18 at 1031 by Anton Moore RN Entry error re; Illeostomy. Correction--> Urostomy.
[2018-02-26] MEDS: FLUCONAZOLE 100 MG/NS 50 ML 50 ML IV SCH (16:04)
[2018-02-26] MEDS ORDERED: HYDROMORPHONE 1MG/1ML INJ IV PRN (16:45)
[2018-02-26] MEDS: HYDROMORPHONE 2MG/ML 2 MG/ML ML IV PRN (17:08)
--- NOTE | 2018-02-26 19:00 | NUR ---
Report received from AM nurse Anna. Patient sleeping in her bed, confused but respond little opening eyes in verbal command. No respiration distress noted. Respiration even and unlabored,Spo2 maintained 95% with RA. Patient had continued urostomy bag on her right lower abdomen and nephrostomy bag on right lower back. Bed in lower position,locked. Call gregory within reach. Will continue to monitor.
[2018-02-26] MEDS: ENOXAPARIN SODIUM INJ 100 MG/ML SYR SC SCH (21:00)
[2018-02-26] MEDS: QUETIAPINE FUMARATE 25 MG TAB PO SCH (21:00)
--- NOTE | 2018-02-26 22:37 | NUR ---
Nephrostomy tube flush with NS 10cc and NGT residual found 20cc at this time. Will continue to monitor.
[2018-02-27] MEDS: IPRATROPIUM BROMIDE 0.02% 2.5 ML NEB NEB SCH ×4 (01:30→19:30)
[2018-02-27] MEDS: LEVALBUTEROL HCL SOLN NEBU 0.63 MG/3 ML NEB INH SCH ×4 (01:30→19:30)
[2018-02-27] MEDS: HYDROMORPHONE 2MG/ML 2 MG/ML ML IV PRN ×4 (01:32→19:43)
--- NOTE | 2018-02-27 02:34 | NUR ---
Nephrostomy tube flush with NS 10cc and NGT residual found 10cc at this time. Will continue to monitor.
[2018-02-27 04:27] VITALS: BP 126/43
[2018-02-27 04:49] LABS: BASOPHILS % 0.4 % (0.0-1.0); EOSINOPHILS # (AUTO) 0.1 (0.0-0.4); HEMATOCRIT 26.9 % (34.2-44.1); HEMOGLOBIN 8.2 g/dL (12.0-16.0); LYMPHOCYTES % 28.9 % (18.0-39.1); MEAN CORPUSCULAR HEMOGLOBIN 31.1 pg (28-32); MEAN CORPUSCULAR HGB CONC 30.5 g/dL (31-35); MEAN CORPUSCULAR VOLUME 101.9 fL (81-99); MONOCYTES # (AUTO) 0.8 (0.2-0.8); MONOCYTES % 11.3 % (4.4-11.3); NEUTROPHILS # (AUTO) 3.9 (2.1-6.9); NEUTROPHILS % 56.8 % (38.7-80.0); PLATELET COUNT 236 x10e3/uL (140-360); RED BLOOD COUNT 2.64 x10e6/uL (3.6-5.1); RED CELL DISTRIBUTION WIDTH 18.5 % (11.7-14.4)
[2018-02-27 05:06] LABS: ALBUMIN 1.5 g/dL (3.5-5.0); ALBUMIN/GLOBULIN RATIO 0.4 (0.8-2.0); ALKALINE PHOSPHATASE 57 IU/L (40-150); BLOOD UREA NITROGEN 57 mg/dL (7-26); BUN/CREATININE RATIO 23 (6-25); CALCIUM 8.1 mg/dL (8.4-10.2); CARBON DIOXIDE 22 mmol/L (22-29); CHLORIDE 110 mmol/L (98-107); CREATININE, SERUM 2.48 mg/dL (0.57-1.11); EST GLOMERULAR FILTRATION RATE 19 ML/MIN (60-); GLUCOSE 123 mg/dL (74-118); SODIUM 144 mmol/L (136-145)
[2018-02-27 05:07] LABS: ALANINE AMINOTRANSFERASE < 6 IU/L (0-55)
[2018-02-27] MEDS: METRONIDAZOLE 500MG/NS 100ML 100 ML IV SCH ×3 (05:24→21:48)
[2018-02-27] MEDS: TRAMADOL HCL 50 MG TAB PO SCH ×4 (05:25→23:59)
[2018-02-27] MEDS: METOPROLOL TARTRATE 50 MG TAB PO SCH ×4 (05:25→23:59)
--- NOTE | 2018-02-27 06:10 | NUR ---
Nephrostomy tube flush with NS 10cc and NGT residual found 15cc at this time. Will continue to monitor.
--- NOTE | 2018-02-27 06:30 | NUR ---
Patient assisted to cleaned perineum area and changed pads with help of Peg Watters. Applied Calazime cream on perineum area, patient tolerated well. Will continue to monitor.
--- NOTE | 2018-02-27 06:59 | NUR ---
Bedside report given to upcoming nurse Gracie.No issued noted.
[2018-02-27 09:00] VITALS: BP 123/97
[2018-02-27] MEDS: ACETAMINOPHEN 325 MG TAB PO PRN ×2 (09:30→16:40)
[2018-02-27] MEDS: CITRIC ACID/SODIUM CITRATE 30 ML UDC PO SCH ×2 (09:40→17:42)
[2018-02-27] MEDS: LACTOBACILLUS ACIDOPHILUS CAPSULE PO SCH ×2 (09:40→17:42)
--- NOTE | 2018-02-27 09:43 | NUR ---
WOUND CARE PROGRESS NOTE Follow up visit for ostomy management. Appliance intact. Urine yellow and clear. No redness or swelling noted. Will follow up 02/28/2018 for change of appliance. Patient calm and resting in bed with at bedside.
[2018-02-27 09:55] VITALS: BP 151/70
[2018-02-27] MEDS: BALSAM PERU/CASTOR OIL 60 GM OINT...G. TP SCH ×2 (11:01→17:42)
[2018-02-27] MEDS ORDERED: LIDOCAINE HCL 1% LOCAL INJ 20 ML VIAL ONE (14:43)
[2018-02-27] MEDS: FLUCONAZOLE 100 MG/NS 50 ML 50 ML IV SCH (15:00)
[2018-02-27 15:34] VITALS: BP 155/90
--- NOTE | 2018-02-27 15:54 | Diagnostic Imaging Report ---
Date and Time: 02/27/2018 Procedure: Exchange and conversion of right internal jugular central venous catheter to right internal jugular temporary hemodialysis catheter medart operator: Dr. Dickey Pre-operative diagnosis: Nonfunctioning central venous catheter Post-operative diagnosis: Functioning triple-lumen hi flow central venous catheter Conscious Sedation: None Additional Medications: Lidocaine 1% for local anesthesia Fluoroscopy time: 1.4 minutes Frontal Air Kerma: 21.88 mGy Contrast used: None Estimated blood loss: Minimal Specimens: Central venous catheter discarded Implants: 13.5 Ugandan, 20 cm triple-lumen hi flow central venous catheter Complications: No immediate Condition at completion: Guarded Disposition: Returned to Intensive Care Unit DISCUSSION: Informed consent was obtained and documented in the medical record after discussion of risks and benefits. The patient was placed in the supine position on the fluoroscopic table. The right neck and existing central venous catheter were prepped and draped in the standard sterile fashion. 1% lidocaine was infiltrated into the skin and subcutaneous tissues along the catheter for local anesthesia. The retention sutures were cut. A 0.0 3 5-in. Amplatz wire was advanced through the catheter and into the inferior vena cava under fluoroscopic guidance. The catheter was removed and the tract was dilated. Then, a 13.5 Ugandan, 20 cm triple-lumen hi flow central venous catheter was advanced over the wire to full depth. The wire was removed and the catheter tip was positioned at the superior cavoatrial junction. All 3 lumens showed adequate bidirectional flow and were flushed with sterile saline. The catheter was secured to the skin with monofilament nylon suture and a sterile dressing was applied. The patient tolerated the procedure well without immediate complication. FINDINGS: Indwelling central venous catheter with the tip over the expected area of the high superior vena cava. IMPRESSION: Successful exchange of a 7 Ugandan right internal jugular triple-lumen central venous catheter for a right internal jugular triple-lumen temporary hemodialysis catheter (13.5 Ugandan, 20 cm length). The new catheter may be used immediately. Signed by: Dr. Anthony Dickey M.D. on 02/27/2018 3:51 PM
[2018-02-27] MEDS: VANCOMYCIN 1GM/NS 250 ML 250 ML IV SCH (16:40)
[2018-02-27] MEDS: PANTOPRAZOLE 40 MG 10ML VIAL IV SCH (16:40)
[2018-02-27] MEDS ORDERED: LORAZEPAM 0.5 MG TAB NG PRN (17:45)
[2018-02-27] MEDS ORDERED: MAGNESIUM SULFATE 2GM/50ML 50 ML IV ONE (18:00)
[2018-02-27 19:15] VITALS: BP 123/84
[2018-02-27] MEDS: HYDRALAZINE HCL 25 MG TAB PO PRN (19:43)
[2018-02-27 20:00] VITALS: BP 169/99
--- NOTE | 2018-02-27 20:30 | NUR ---
round the patient. MD ordered EGD and PEG tube for 02/28 at this time.
[2018-02-27] MEDS: ENOXAPARIN SODIUM INJ 100 MG/ML SYR SC SCH (21:35)
[2018-02-27] MEDS: QUETIAPINE FUMARATE 25 MG TAB PO SCH (23:31)
--- NOTE | 2018-02-27 23:40 | NUR ---
Patient urostomy bag leaked, assisted to cleaned and changed urostomy bag with sterile technique,patient tolerated well. Will continued to monitor.
[2018-02-28] VITALS (12 sets, daily range): BP systolic 88–166; BP diastolic 48–93
[2018-02-28] MEDS: IPRATROPIUM BROMIDE 0.02% 2.5 ML NEB NEB SCH ×4 (01:35→19:15)
[2018-02-28] MEDS: LEVALBUTEROL HCL SOLN NEBU 0.63 MG/3 ML NEB INH SCH ×4 (01:35→19:15)
[2018-02-28] MEDS: HYDROMORPHONE 2MG/ML 2 MG/ML ML IV PRN ×2 (03:24→08:10)
[2018-02-28 05:42] LABS: ALANINE AMINOTRANSFERASE < 6 IU/L (0-55); ALBUMIN 1.5 g/dL (3.5-5.0); ALBUMIN/GLOBULIN RATIO 0.4 (0.8-2.0); ALKALINE PHOSPHATASE 55 IU/L (40-150); BLOOD UREA NITROGEN 56 mg/dL (7-26); BUN/CREATININE RATIO 22 (6-25); CALCIUM 7.9 mg/dL (8.4-10.2); CARBON DIOXIDE 23 mmol/L (22-29); CHLORIDE 113 mmol/L (98-107); CREATININE, SERUM 2.49 mg/dL (0.57-1.11); EST GLOMERULAR FILTRATION RATE 19 ML/MIN (60-); GLUCOSE 109 mg/dL (74-118); MAGNESIUM 2.3 MG/DL (1.3-2.1); PHOSPHORUS 4.4 MG/DL (2.3-4.7); SODIUM 148 mmol/L (136-145)
[2018-02-28] MEDS: TRAMADOL HCL 50 MG TAB PO SCH ×2 (06:00→21:41)
[2018-02-28] MEDS: METRONIDAZOLE 500MG/NS 100ML 100 ML IV SCH ×3 (06:13→22:00)
[2018-02-28] MEDS: METOPROLOL TARTRATE 50 MG TAB PO SCH ×3 (06:13→18:00)
--- NOTE | 2018-02-28 06:14 | Consultation ---
DATE OF CONSULTATION: February 27, 2018 GASTROENTEROLOGY CONSULT REASON FOR CONSULTATION: PEG placement. HISTORY OF PRESENT ILLNESS: A 77-year-old female with a host of medical problems got admitted with sepsis secondary to urinary tract infection and obstructive uropathy. Patient underwent a right nephrostomy. She already has a urostomy with ileal conduit from the past. She was initially admitted in the ICU, treated aggressively with IV antibiotics and IV fluids. Was on respiratory support. Subsequently, got extubated. She is now on the floor. She has failed speech and swallow evaluation. She has a high risk of aspiration during swallowing. Patient is likely going to be transferred to a shelter. She needs to have PEG placement prior to transfer. She is currently getting enteral feeding through NG. REVIEW OF SYSTEMS: A 12-point system reviewed. Symptomatology is limited as per HPI. PAST MEDICAL HISTORY: Chronic kidney disease, stage 4, recurrent renal calculi, recurrent UTI, GERD, neurogenic bladder, chronic right hydronephrosis. PAST SURGICAL HISTORY: Recent right nephrostomy, ileal conduit, urostomy, multiple abdominal surgeries in the past, including Whipple's. FAMILY HISTORY: Noncontributory. SOCIAL HISTORY: and is lives with . No smoking, alcohol or any illicit drug use. ALLERGIES: PENICILLIN. MEDICATIONS: Reviewed as per MAR. Patient is not on any anticoagulants. PHYSICAL EXAMINATION VITAL SIGNS: Temperature 98, pulse 116, respirations 18, blood pressure 150/83, oxygen saturation 95% on 2 L nasal cannula. GENERAL: Lethargic and drowsy. Oral mucosa is moist. NG in place. CV: S1 and S2 regular with a 2/6 flow murmur at the apex. LUNGS: Bilaterally grossly clear although patient has very poor inspiratory effort. ABDOMEN: Soft. Urostomy with right nephrostomy. Mild right lower tenderness. No rebound, rigidity or guarding. Positive bowel sounds. EXTREMITIES: Warm. Two plus pitting leg edema. LABS: WBC 6.84, hemoglobin 8.2, hematocrit 26.9, and platelet count 236,000. MCV 101.9. Electrolytes normal. Sodium 144, potassium 4, chloride 110, bicarb 22, BUN 57, creatinine 2.48, and glucose 123. Previous imaging of abdominal x-ray and CT scan reviewed. PLAN: No contraindication for EGD and PEG placement. Patient has oropharyngeal dysphagia. She is going to be transferred to a shelter. Therefore, PEG is required to maintain enteral nutrition, hydration, as well as delivery of medications. Will keep n.p.o. past midnight. Will hold NG tube feeding at night. I thank Dr. Woody for allowing me to participate in the care of this patient. Job#: [id number] RI
--- NOTE | 2018-02-28 06:15 | NUR ---
Patient had brown moderate BM, assisted to cleaned and changed pads with help of Peg Watters. Changed Mepilex dressing on stage II wound on scarum. V/S WNL.Will continue to monitor.
--- NOTE | 2018-02-28 06:19 | NUR ---
Patient assisted to cleaned perineal area with soap water,applied Calazime cream on perineum area. v/S WNL. Will continue to monitor.
--- NOTE | 2018-02-28 07:14 | NUR ---
Report given to upcoming nurse Bridget, walking round done.
[2018-02-28] MEDS: PANTOPRAZOLE 40 MG 10ML VIAL IV SCH (08:24)
[2018-02-28] MEDS: ACETAMINOPHEN 325 MG TAB PO PRN (08:34)
[2018-02-28] MEDS: LACTOBACILLUS ACIDOPHILUS CAPSULE PO SCH ×2 (08:57→17:00)
[2018-02-28] MEDS: BALSAM PERU/CASTOR OIL 60 GM OINT...G. TP SCH ×2 (08:57→19:46)
[2018-02-28] MEDS: CITRIC ACID/SODIUM CITRATE 30 ML UDC PO SCH ×2 (08:57→17:00)
--- NOTE | 2018-02-28 09:43 | NUR ---
PT REMAINS RESTLESS AFTER PAIN MEDICINE GIVEN DECREASED TEMP. AT BEDSIDE WILL MEDICATE ACCORDING TO MAR FOR RESTLESSNESS
--- NOTE | 2018-02-28 09:46 | NUR ---
ST NOTE: Pt in pain this AM, restless night, unable to complete dysaphagia therapy session. Pt scheduled for peg tube placement at 1300 today. will CPOC Handoff to BURT Devries and family
[2018-02-28] MEDS ORDERED: LORAZEPAM INJ 2 MG/ML VIAL IV PRN (10:00)
--- NOTE | 2018-02-28 11:09 | NUR ---
FAXED CLINICALS TO [facility] SPOKE WITH [facility] WHOM STATES THEY WILL REVIEW AND BE IN FACILITY ON SATURDAY IF ACCEPTED WILL LET KNOW. WILL NEED TO SEND UPDATED CLINICALS ON SATURDAY
--- NOTE | 2018-02-28 12:52 | NUR ---
PASRR FILED OUT FILED IN CHART WITH COPY PLACED IN FOLDER TO ACCOMPANY PATIENT TO FACILITY, RTF COMPLETED AND PLACED AT DESK WITH NURSE TO CALL REPORT WHEN DISCHARGE ORDER IS WRITTEN AND FACILITY HAS ISSUED A ROOM NUMBER AND PHYSCIAN TO CONTINUE CARE.
[2018-02-28] MEDS ORDERED: METRONIDAZOLE 500MG/NS 100ML 100 ML IV ONE (14:09)
[2018-02-28] MEDS: FLUCONAZOLE 100 MG/NS 50 ML 50 ML IV SCH (15:00)
[2018-02-28] MEDS ORDERED: MIDAZOLAM HCL 2 MG/2 ML VIAL ONE (15:28)
[2018-02-28] MEDS: PROPOFOL IV EMULSION 10MG/ML 100 ML IV SCH (16:30)
--- NOTE | 2018-02-28 16:33 | Diagnostic Imaging Report ---
EXAM: CHEST SINGLE (PORTABLE), AP Portable DATE: 02/28/2018 3:46 PM Time stamp on exam: 4:10 PM INDICATION: Respiratory distress COMPARISON: 02/26/2018 FINDINGS: LINES/TUBES: An endotracheal tube has been placed with the tip at the level above the clavicles. There is a right IJ temporary hemodialysis catheter present. LUNGS: Worsening pulmonary edema. PLEURA: Moderate bilateral pleural effusions. HEART AND MEDIASTINUM: The heart is enlarged. BONES AND SOFT TISSUES: No acute findings. IMPRESSION: Cardiomegaly with worsening pulmonary edema and bilateral pleural effusions. Signed by: Dr. Lance Dockery DO on 02/28/2018 4:30 PM
[2018-02-28 16:39] LABS: ABG HCO3 24 mmol/L (23-28); ABG PCO2 39 mmHg (41-51); ABG PO2 172 mmHg (80-105)
[2018-02-28] MEDS ORDERED: LORAZEPAM 0.5 MG TAB NG PRN (16:45)
[2018-02-28] MEDS ORDERED: NOREPINEPHRINE INJ 4MG/4ML 8 MG in DEXTROSE 5% 250ML 250 ML IV SCH (16:45)
[2018-02-28] MEDS ORDERED: SODIUM CHLORIDE 0.9% 250ML 250 ML IV PRN (16:45)
[2018-02-28 17:04] LABS: BASOPHILS % 0.2 % (0.0-1.0); EOSINOPHILS % 0.9 % (0.0-6.0); LYMPHOCYTES # (AUTO) 1.2 (1.0-3.2); LYMPHOCYTES % 27.4 % (18.0-39.1); MEAN CORPUSCULAR HEMOGLOBIN 31.2 pg (28-32); MEAN CORPUSCULAR HGB CONC 30.4 g/dL (31-35); MEAN CORPUSCULAR VOLUME 102.7 fL (81-99); MONOCYTES # (AUTO) 0.5 (0.2-0.8); MONOCYTES % 10.4 % (4.4-11.3); NEUTROPHILS # (AUTO) 2.6 (2.1-6.9); NEUTROPHILS % 59.9 % (38.7-80.0); PLATELET COUNT 229 x10e3/uL (140-360); RED BLOOD COUNT 2.21 x10e6/uL (3.6-5.1); RED CELL DISTRIBUTION WIDTH 18.6 % (11.7-14.4)
[2018-02-28 17:07] LABS: HEMOGLOBIN 6.9 g/dL (12.0-16.0)
[2018-02-28 17:08] LABS: HEMATOCRIT 22.7 % (34.2-44.1)
[2018-02-28 17:17] LABS: ANION GAP 16.2 mmol/L (8-16); CALCIUM 7.7 mg/dL (8.4-10.2); CREATININE, SERUM 2.54 mg/dL (0.57-1.11); POTASSIUM 4.2 mmol/L (3.5-5.1)
--- NOTE | 2018-02-28 17:44 | NUR ---
paged Dr. Gutiérrez for critical lab result. waiting on return call for further orders. will continue to monitor
--- NOTE | 2018-02-28 17:59 | NUR ---
WOUND CARE NURSE. PT WAS TRANSFERRED TO ICU, MEDICALLY UNSTABLE AT THIS TIME. WILL FOLLOW UP WITH PT AT A LATER TIME. Addendum: 02/28/18 at 1801 by Rachel Apple RN Amended: Links added.
[2018-02-28] MEDS ORDERED: SODIUM CHLORIDE 0.9% 250ML 250 ML IV ONE (18:15)
--- NOTE | 2018-02-28 18:41 | NUR ---
paged Dr. Melgar to report critical H/H per Dr. Mayer order. will continue to monitor
[2018-02-28] MEDS ORDERED: ONDANSETRON HCL INJ 2 MG/ML VIAL ONE (18:51)
[2018-02-28] MEDS ORDERED: VASOPRESSIN INJ 20 UNIT/ML VIAL ONE (18:51)
[2018-02-28] MEDS ORDERED: SEVOFLURANE INHAL SOLN 250 ML PEN BTL ONE (18:51)
[2018-02-28] MEDS ORDERED: PROPOFOL IV EMULSION 10 MG/ML 20 ML VIAL ONE (18:51)
[2018-02-28] MEDS ORDERED: PHENYLEPHRINE HCL 1% 10 MG/ML VIAL ONE (18:51)
[2018-02-28] MEDS ORDERED: LIDOCAINE HCL 2% LOCAL INJ 5 ML SDV VIAL INJ ONE (18:51)
[2018-02-28] MEDS ORDERED: SUCCINYLCHOLINE 200 MG/10 ML SYR ONE (18:51)
--- NOTE | 2018-02-28 19:00 | NUR ---
Bedside report received from Lisa DALLAS. Pt received resting in bed with HOB elevated 30 degrees, bed in lowest and locked position, call light in reach of the pt, restraints wdp, ett to vent per md orders with tube hold in use, pillows to pts bilateral arms/elbows, head/neck. Pt sacral dressing changed at this time with Lisa DALLAS, unstagable wound to pts sacrum with wound bed covered in yellowish/red slough and minimal drainage. Pt turned from right to left side at this time with pillows.
[2018-02-28] MEDS: DEXTROSE 5% 1,000 ML IV SCH (19:45)
[2018-02-28] MEDS: QUETIAPINE FUMARATE 25 MG TAB PO SCH (20:36)
[2018-02-28] MEDS: ENOXAPARIN SODIUM INJ 100 MG/ML SYR SC SCH (20:37)
[2018-02-28] MEDS: MIDAZOLAM HCL 2 MG/2 ML VIAL IV PRN (20:37)
[2018-03-01] VITALS (17 sets, daily range): BP systolic 96–141; BP diastolic 45–82
[2018-03-01] MEDS: LEVALBUTEROL HCL SOLN NEBU 0.63 MG/3 ML NEB INH SCH ×4 (00:52→19:00)
[2018-03-01] MEDS: IPRATROPIUM BROMIDE 0.02% 2.5 ML NEB NEB SCH ×4 (00:52→19:00)
[2018-03-01] MEDS: PROPOFOL IV EMULSION 10MG/ML 100 ML IV SCH ×3 (03:00→19:30)
[2018-03-01] MEDS: MIDAZOLAM HCL 2 MG/2 ML VIAL IV PRN (03:13)
[2018-03-01 05:25] LABS: BASOPHILS % 0.4 % (0.0-1.0); EOSINOPHILS % 0.7 % (0.0-6.0); HEMATOCRIT 25.4 % (34.2-44.1); HEMOGLOBIN 7.7 g/dL (12.0-16.0); LYMPHOCYTES # (AUTO) 1.5 (1.0-3.2); LYMPHOCYTES % 32.9 % (18.0-39.1); MEAN CORPUSCULAR HGB CONC 30.3 g/dL (31-35); MEAN CORPUSCULAR VOLUME 98.8 fL (81-99); MONOCYTES # (AUTO) 0.4 (0.2-0.8); MONOCYTES % 9.4 % (4.4-11.3); NEUTROPHILS # (AUTO) 2.6 (2.1-6.9); NEUTROPHILS % 55.7 % (38.7-80.0); PLATELET COUNT 232 x10e3/uL (140-360); RED BLOOD COUNT 2.57 x10e6/uL (3.6-5.1); RED CELL DISTRIBUTION WIDTH 20.6 % (11.7-14.4)
[2018-03-01] MEDS: METOPROLOL TARTRATE 50 MG TAB PO SCH ×4 (06:00→17:46)
[2018-03-01] MEDS: TRAMADOL HCL 50 MG TAB PO SCH ×3 (06:00→20:02)
[2018-03-01] MEDS: METRONIDAZOLE 500MG/NS 100ML 100 ML IV SCH (06:13)
--- NOTE | 2018-03-01 06:34 | Diagnostic Imaging Report ---
CHEST SINGLE (PORTABLE), 03/01/2018 12:30 PM Technique: CHEST SINGLE (PORTABLE) Comparison: 02/28/2018 Clinical history: Intubated Findings: See Impression Impression: 1. Lines/Tubes: Stable ET tube 5.7 cm above the nano, right IJ central venous catheter near the cavoatrial junction. 2. Stable enlarged cardiomediastinal silhouette. 3. Stable layering left greater than right effusions and associated opacity, possibly a component of underlying atelectasis/edema. Signed by: Dr Denisse Bee MD on 03/01/2018 6:31 AM
--- NOTE | 2018-03-01 07:00 | NUR ---
Bedside report given to Lisa DALLAS. Pt propofol turned off at this time, sedation vacation for weaning trail this morning per Dr. Gutiérrez's instruction. No signs of distress noted at this time.
[2018-03-01 07:46] LABS: ALBUMIN 1.4 g/dL (3.5-5.0); ALBUMIN/GLOBULIN RATIO 0.4 (0.8-2.0); ALKALINE PHOSPHATASE 46 IU/L (40-150); ANION GAP 16.4 mmol/L (8-16); BLOOD UREA NITROGEN 57 mg/dL (7-26); BUN/CREATININE RATIO 22 (6-25); CALCIUM 7.8 mg/dL (8.4-10.2); CARBON DIOXIDE 23 mmol/L (22-29); CHLORIDE 117 mmol/L (98-107); CREATININE, SERUM 2.65 mg/dL (0.57-1.11); EST GLOMERULAR FILTRATION RATE 17 ML/MIN (60-); GLUCOSE 94 mg/dL (74-118); POTASSIUM 4.4 mmol/L (3.5-5.1); SODIUM 152 mmol/L (136-145)
[2018-03-01 07:47] LABS: ALANINE AMINOTRANSFERASE < 6 IU/L (0-55)
[2018-03-01] MEDS: DEXTROSE 5% 1,000 ML IV SCH ×2 (09:05→21:30)
[2018-03-01] MEDS: PANTOPRAZOLE 40 MG 10ML VIAL IV SCH (10:20)
[2018-03-01] MEDS: CITRIC ACID/SODIUM CITRATE 30 ML UDC PO SCH ×2 (10:20→17:45)
[2018-03-01] MEDS: BALSAM PERU/CASTOR OIL 60 GM OINT...G. TP SCH ×2 (10:20→17:45)
[2018-03-01] MEDS: VANCOMYCIN 1GM/NS 250 ML 250 ML IV SCH (10:20)
[2018-03-01] MEDS: LACTOBACILLUS ACIDOPHILUS CAPSULE PO SCH ×2 (10:20→17:45)
--- NOTE | 2018-03-01 10:27 | NUR ---
Nutrition Intervention Note RD Recommendation for Physician: -Rec continuous TF with Jevity 1.2 @45mL/hr and 2pkt Beneprotein, providing 1346kcal, 72g protein and 872mL fluids. meet 100% of her est calorie needs and 85% of protein needs - H2O flushes 30mL q 4hr; additional fluids per MD discretion. -Monitor daily labs, replace low lytes, check for GI tolerance Plan of Care: RD following, monitoring for tolerance and adequacy, TF rec Nutrition reason for involvement: MD consult Primary Diagnose(s): small-bowel obstruction or intestinal obstruction likely due to adhesions with associated large hernia, acute renal failure PMH: Chronic kidney disease, ureterostomy/ileal conduit obstruction, recurrent urinary tract infection, HTN, insomnia, reflux, L renal atrophy, CKD, pancreatitis, kidney stone, hypertension, recurrent UTI, renal atrophy, GERD, neurogenic bladder, ileal conduit, and chronic right hydronephrosis. GI: abd non-tender, large, flatus present, LBM 02/25 Skin: stage I to right heel, DTI to sacrum and rash to right hip per wound care Labs: 02/28 lab results reviewed (02/25) K 3.3 L, BUN 60 H, Creatinine 2.45 H (02/20) Na 147 H, BUN 60 H, creatinine 2.29 H (02/18) BUN 55 H, Creatinine 2.47 H, Glucose 145 H, Ca 8.3 L (02/17) BUN 58 H, Creatinine 2.72 H, Glucose 168 H, Ca 8.2 L Meds: KCl, IVF, vancomycin, protonix, 03/01 propofol Ht: 64in 03/01 noted ht at 120" and will tell nurse to change it Wt: 183lb 02/12, 242lb 02/18, 228lb 02/20, 236lb 02/25 (excessive fluids gain from IVF) 03/01 243.13lbs BMI: 31.4kg/m2 IBW: 120lb RD Assessment: (03/01) Consult received for EN recommendations S/P PEG placement. Pt failed MBSS and needed a PEG to meet terminal operations supervisor nutrition needs. Can resume previous EN orders on 03/02 as GI does not want to use the PEG until then. (02/25) Chart reviewed. Pt was discussed during rounds. Pending swallow study. Per RN, pt has had minimal gastric residual with TF and diarrhea for several days. (-) stool culture. Diarrhea possibly due to meds and IVF. Visited pt in the room. Pt is awake and alert. No complains of nausea or vomiting. Nepro is running at 40ml/hr with 500mL water flushes q 8hr. Renal function is stable. RD spoke with RN (Phan) about changing TF to Jevity 1.2 @45mL/hr (fiber, lower osmolality, stable renal function) and rec probiotics to help with diarrhea. RD was told by RN that Dr. Leonard wanted to keep TF below 40mL/hr and increase free water flushes to 500mL q 6hr. Will continue to monitor and follow. (02/20) Chart reviewed. Pt is extubated and off ventilation. TPN discontinued. BREWERY CELLAR WORKER is consulted for swallow evaluation. Pt will remain on TF with Nepro @40mL/hr until swallow eval is completed. Visited pt in the room. Pt is awake, alert and in no acute distress. Per family, pt has some diarrhea and stool culture has been obtained. Otherwise, pt has no other GI complains. Will continue to monitor and follow. (02/18) Chart reviewed. Pt remains intubated and ventilated. Per RN, pt will start TF while weaning off TPN. Renal function has improved; no dialysis. Phosphorus and potassium levels have been stable. No GI complains noted. Flatus present. RD rec continuous TF with Vital AF 1.2 [place] @45mL/hr, providing 1296kcal, 81g protein, and 876mL fluids. Free water flushes of 30mL q 4hr. If PO is feasible and % meal intake >50%, d/c TF. Discussed with nursing. Will continue to monitor and follow. (02/17) Chart reviewed. Pt was discussed during rounds. Visited pt in the room. Pt remains intubated and ventilated. No surgery intervention planned for SBO. NGT on suction, still draining dark fluids. Pt is currently receiving standard TPN @ 60mL/hr with addition of 25g lipid on MWF, which is meeting her protein and calorie needs. Family is aware of the purpose of TPN. No phosphorus and magnesium drawn for today; RN is aware. Will continue to monitor and follow. (02/13) Chart reviewed. Labs and meds reviewed. 77 yo F, who is admitted for abdominal pain. R nephrostomy catheter placed today. Positive urine culture. Visited pt in the room. Family on bedside provided info. NGT on suction, still draining dark fluids. Per family, pt has been sick with fever and poor PO intake for over a week .NET ARCHITECT. Family doesnt suspect any recent weight loss with stable weight ~175lb. Pt was able to chew and swallow without any issue at home. Code sepsis was called shortly after I left the room. Pt was transferred to ICU 194. Will continue to monitor and follow. Current Diet: NPO Malnutrition Evaluation (02/13) The patient does not meet criteria for a specified degree of malnutrition at this time. Will re-evaluate at follow-up as appropriate. Energy intake: <75% of estimated energy requirements for >7 days Weight loss: None per family. No physical sign of malnutrition upon observation, with BMI of 31.4kg/m2. Estimated Nutritional Needs: Calories: 1210 1375kcal (22-25kcal/kg ) Weight used : [place] body weight Protein : 83 138g (1.5-2.5g/kg) Weight used: [place] body weight Diet Adequacy: Not meeting energy or protein needs Diet Education Needs Assessment: Diet education not indicated. Nutrition Care Level: low Nutrition Diagnosis: Inadequate oral intake related to current medical status as evidenced by pt requiring TF as main source of nutrition. Goal: Patient will meet 75-100% of estimated needs by follow up Progress: Some progress Interventions: Rate, composition, modified diet, commercial beverage, collaboration with other providers Monitoring/Evaluation: Total energy intake, Total protein intake, formula/solution, modified diet, liquid supplement, Weight change Anil De La Rosa RD, [place], [facility]
[2018-03-01 11:25] LABS: ABG PH 7.29 (7.31-7.41)
[2018-03-01 11:26] LABS: ABG HCO3 23 mmol/L (23-28); ABG PCO2 48 mmHg (41-51); ABG PO2 202 mmHg (80-105)
--- NOTE | 2018-03-01 11:28 | NUR ---
WEAN TO CPAP 1HRS,DR ALCANTARA ORDER ABG,AFTER ABG RESULT HE ORDER PLACED BACK PRVC PREVIOUS SETTING.
[2018-03-01] MEDS ORDERED: CHLOROTHIAZIDE SODIUM 500 MG VIAL IV ONE (11:45)
[2018-03-01] MEDS ORDERED: SODIUM CHLORIDE 0.9% 250ML 250 ML IV PRN (16:45)
--- NOTE | 2018-03-01 19:00 | NUR ---
Bedside report received from Lisa DALLAS. Pt gown changed at this time and pt turned with pink foam wedge to her left side. Pillows to pts head/neck, bilateral arms/elbows, and bilateral lower legs to off load heels. Pt has on Allevyn life heel protectors and pink foam heel protectors. Alternating pressure mattress in use. Allevyn life sacral patch in place. New urostomy bag placed today by AM nursing staff. Propofol infusing at 25mcg/kg/min. ETT tube 7, 22cm at the lips to vent per MD orders. RIJ trialysis catheter pigtail with D5W infusing, line patent and wdp. Nephrostomy to gravity and draining wdp. No signs of pain or discomfort or distress noted at this time.
--- NOTE | 2018-03-01 19:20 | NUR ---
Dr. Melgar present and assessing the pt. New order received: Okay to use PEG tube for tube feedings. Start Jevity 1.2 at 20ml/hr and advance to 45ml/hr as recommended by dietary and as tolerated.
[2018-03-01] MEDS: QUETIAPINE FUMARATE 25 MG TAB PO SCH (20:02)
--- NOTE | 2018-03-01 20:12 | Progress Note ---
DATE: March 01, 2018 GI PROGRESS NOTE SUBJECTIVE: Patient continues to be intubated on mechanical ventilator. She has had EGD/PEG placement yesterday under general anesthesia. Following procedure, she could not be extubated. REVIEW OF SYSTEMS: Unobtainable. MEDICATIONS: Reviewed as per MAR. She is on intravenous vancomycin, pantoprazole 40 mg IV daily along with other medications. PHYSICAL EXAMINATION VITAL SIGNS: Temperature 98.9, pulse ranging from 102 to 107, respirations 14, blood pressure 124/61, oxygen saturation 100% on current ventilator setting. GENERAL: Intubated on mechanical ventilator. Obese body habitus. HEENT: Anicteric sclerae. ABDOMEN: Soft. PEG site is clean. External bumper 2.5 cm from the skin. No leak. No bleeding. Urostomy bag in right lower quadrant and right nephrostomy. Bowel sounds present. LABS: WBC 4.59, hemoglobin 7.7, hematocrit 25.4, and platelet count 232. Sodium 152, potassium 4.4, chloride 117, bicarb 23, BUN 57, creatinine 2.65. Total bilirubin 0.4. AST 11, ALT less than 6, alkaline phosphatase 46. IMPRESSION 1. Oropharyngeal dysphagia, status post esophagogastroduodenoscopy/percutaneous endoscopic gastrostomy. 2. Respiratory failure, status post intubation on mechanical ventilator. 3. Hypernatremia due to dehydration and water deficit. 4. Urosepsis/pulmonary infection, on intravenous antibiotic. PLAN: PEG can be used for feeding. Watch for tolerance. Check residuals. Call GI for any G-tube malfunction. Management of hyponatremia and sepsis as per primary team. Job#: [id number] RTY
[2018-03-01] MEDS: ENOXAPARIN SODIUM INJ 100 MG/ML SYR SC SCH (21:30)
[2018-03-02] VITALS (35 sets, daily range): BP systolic 96–154; BP diastolic 57–87
[2018-03-02] MEDS: PROPOFOL IV EMULSION 10MG/ML 100 ML IV SCH ×2 (02:11→06:14)
[2018-03-02] MEDS: LEVALBUTEROL HCL SOLN NEBU 0.63 MG/3 ML NEB INH SCH ×4 (02:30→19:21)
[2018-03-02] MEDS: IPRATROPIUM BROMIDE 0.02% 2.5 ML NEB NEB SCH ×4 (02:30→19:21)
[2018-03-02 04:40] LABS: BASOPHILS % 0.3 % (0.0-1.0); EOSINOPHILS # (AUTO) 0.1 (0.0-0.4); EOSINOPHILS % 2.3 % (0.0-6.0); HEMATOCRIT 25.8 % (34.2-44.1); HEMOGLOBIN 7.9 g/dL (12.0-16.0); LYMPHOCYTES # (AUTO) 1.3 (1.0-3.2); LYMPHOCYTES % 33.2 % (18.0-39.1); MEAN CORPUSCULAR HEMOGLOBIN 30.5 pg (28-32); MEAN CORPUSCULAR HGB CONC 30.6 g/dL (31-35); MEAN CORPUSCULAR VOLUME 99.6 fL (81-99); MONOCYTES # (AUTO) 0.4 (0.2-0.8); MONOCYTES % 9.3 % (4.4-11.3); NEUTROPHILS # (AUTO) 2.1 (2.1-6.9); NEUTROPHILS % 53.9 % (38.7-80.0); PLATELET COUNT 221 x10e3/uL (140-360); RED BLOOD COUNT 2.59 x10e6/uL (3.6-5.1); RED CELL DISTRIBUTION WIDTH 20.9 % (11.7-14.4)
[2018-03-02 05:03] LABS: MAGNESIUM 1.9 MG/DL (1.3-2.1); PHOSPHORUS 4.8 MG/DL (2.3-4.7)
[2018-03-02 05:04] LABS: ANION GAP 13.8 mmol/L (8-16); CREATININE, SERUM 2.69 mg/dL (0.57-1.11); POTASSIUM 3.8 mmol/L (3.5-5.1)
[2018-03-02] MEDS: TRAMADOL HCL 50 MG TAB PO SCH ×3 (05:53→20:28)
[2018-03-02] MEDS: METOPROLOL TARTRATE 50 MG TAB PO SCH ×4 (05:53→17:03)
--- NOTE | 2018-03-02 06:24 | Diagnostic Imaging Report ---
CHEST SINGLE (PORTABLE), 03/02/2018 5:00 AM Technique: CHEST SINGLE (PORTABLE) Comparison: Previous day Clinical history: Intubated Findings: See Impression Impression: 1. Lines/Tubes: Stable ET tube 4.5 cm above the nano, right IJ central venous catheter near the cavoatrial junction. 2. Stable enlarged cardiomediastinal silhouette. 3. Stable layering left greater than right effusions and associated opacity, possibly a component of underlying atelectasis/edema Signed by: Dr Denisse Bee MD on 03/02/2018 6:21 AM
--- NOTE | 2018-03-02 06:41 | Diagnostic Imaging Report ---
EXAM: US CHEST (INCL MEDIASTINUM) DATE: 03/01/2018 12:00 AM INDICATION: Evaluate pleural effusions, COMPARISON: None TECHNIQUE: Transverse and longitudinal lucas scale sonographic images of the bilateral chest/pleural cavities were obtained. FINDINGS: See impression IMPRESSION: Small to moderate simple appearing left pleural effusion. No right pleural effusion visualized. Signed by: Dr Denisse Bee MD on 03/02/2018 6:38 AM
--- NOTE | 2018-03-02 07:20 | NUR ---
tube feed stopped for ventilator weaning. propofol decreased from 35 to 20 mcg/kg/min
[2018-03-02] MEDS: CITRIC ACID/SODIUM CITRATE 30 ML UDC PO SCH ×2 (08:30→17:02)
[2018-03-02] MEDS: PANTOPRAZOLE 40 MG 10ML VIAL IV SCH (08:30)
[2018-03-02] MEDS: LACTOBACILLUS ACIDOPHILUS CAPSULE PO SCH ×2 (08:30→17:02)
[2018-03-02] MEDS: BALSAM PERU/CASTOR OIL 60 GM OINT...G. TP SCH ×2 (08:38→17:02)
--- NOTE | 2018-03-02 09:00 | NUR ---
Wean PT to CPAP 5/5/40%.PT TOLERATED WELL,RES RATE 20/MIN,O2 SATS 100%.
[2018-03-02 09:32] LABS: ABG PH 7.41 (7.31-7.41)
[2018-03-02 09:33] LABS: ABG HCO3 24 mmol/L (23-28); ABG PCO2 38 mmHg (41-51); ABG PO2 201 mmHg (80-105)
[2018-03-02] MEDS: METOPROLOL TARTRATE INJ 1 MG/ML VIAL IV PRN (09:35)
[2018-03-02] MEDS: HYDRALAZINE HCL 25 MG TAB PO PRN (09:36)
[2018-03-02] MEDS: ACETAMINOPHEN 325 MG TAB PO PRN (09:36)
--- NOTE | 2018-03-02 10:00 | NUR ---
DR MANUEL ORDER EXTUBATED PT,PLACED PT ON NC 4L,O2 SATS 100%,RES RATE 21/MIN.NO RES DISTRESS AT THIS TIME.
[2018-03-02] MEDS ORDERED: HALOPERIDOL LACTATE 5 MG/ML VIAL IV PRN ×2 (10:15→10:30)
[2018-03-02] MEDS ORDERED: HALOPERIDOL LACTATE 5 MG/ML VIAL IM PRN (10:15)
[2018-03-02] MEDS: DEXTROSE 5% 1,000 ML IV SCH (10:58)
[2018-03-02] MEDS: QUETIAPINE FUMARATE 25 MG TAB PO SCH (20:28)
[2018-03-02] MEDS: GUAIFENESIN/DEXTROMETHORPHAN LIQD 5 ML UDC NG PRN (20:29)
--- NOTE | 2018-03-02 21:05 | NUR ---
Dr. Melgar present and assessing the pt. No new orders received at this time. Dr. Melgar spoke with pts dtr and grandson. Pts family (dtr and grandson) leaving the bedside at this time as well.
--- NOTE | 2018-03-02 23:04 | Progress Note ---
DATE: March 02, 2018 GI PROGRESS REPORT SUBJECTIVE: Patient subsequently got extubated. She is tolerating PEG feeding. No abdominal pain. She has had a good bowel movement last night. REVIEW OF SYSTEMS GENERAL: No fever or chills. RESPIRATORY: No cough or expectoration. CVS: No chest pain or palpitations. MEDICATIONS: Reviewed as per MAY. PHYSICAL EXAMINATION VITAL SIGNS: Temperature 99.7, pulse 105, respirations 22, blood pressure 118/58, oxygen saturation 98% on 4 L of nasal cannula. GENERAL: Lethargic, drowsy. Oral mucosa is moist. ABDOMEN: Soft. PEG is nondistended, nontender. PEG site clean no bleeding, leak or any discharge. Bowel sounds present. LABS: WBC 3.88, hemoglobin 7.9, hematocrit 99.6, platelet count 221,000. Sodium 147, potassium 3.8, chloride 114. Bicarb 23, BUN 56, creatinine 2.69, glucose 106. IMPRESSIONS 1. Oropharyngeal dysphagia, status post EGD/PEG. 2. Anemia of chronic disease. 3. Urosepsis. Obstructive uropathy, status post right nephrostomy, prior urostomy. Continue PEG feeding. Watch for tolerance. Check residuals. Call GI for any PEG malfunction. Job#: [id number] CQ
[2018-03-03] VITALS (16 sets, daily range): BP systolic 119–172; BP diastolic 50–99
[2018-03-03] MEDS: METOPROLOL TARTRATE 50 MG TAB PO SCH ×4 (00:24→17:49)
[2018-03-03] MEDS: LEVALBUTEROL HCL SOLN NEBU 0.63 MG/3 ML NEB INH SCH ×4 (01:00→18:58)
[2018-03-03] MEDS: IPRATROPIUM BROMIDE 0.02% 2.5 ML NEB NEB SCH ×4 (01:00→18:58)
[2018-03-03 04:45] LABS: BASOPHILS % 0.4 % (0.0-1.0); EOSINOPHILS # (AUTO) 0.1 (0.0-0.4); EOSINOPHILS % 2.2 % (0.0-6.0); HEMATOCRIT 27.2 % (34.2-44.1); HEMOGLOBIN 8.3 g/dL (12.0-16.0); LYMPHOCYTES # (AUTO) 1.5 (1.0-3.2); LYMPHOCYTES % 30.2 % (18.0-39.1); MEAN CORPUSCULAR HEMOGLOBIN 30.4 pg (28-32); MEAN CORPUSCULAR HGB CONC 30.5 g/dL (31-35); MEAN CORPUSCULAR VOLUME 99.6 fL (81-99); MONOCYTES # (AUTO) 0.5 (0.2-0.8); MONOCYTES % 10.7 % (4.4-11.3); NEUTROPHILS # (AUTO) 2.8 (2.1-6.9); NEUTROPHILS % 55.7 % (38.7-80.0); PLATELET COUNT 275 x10e3/uL (140-360); RED BLOOD COUNT 2.73 x10e6/uL (3.6-5.1); RED CELL DISTRIBUTION WIDTH 20.2 % (11.7-14.4)
[2018-03-03 05:08] LABS: ANION GAP 15.6 mmol/L (8-16); CALCIUM 7.8 mg/dL (8.4-10.2); CREATININE, SERUM 2.57 mg/dL (0.57-1.11); MAGNESIUM 1.8 MG/DL (1.3-2.1); PHOSPHORUS 4.4 MG/DL (2.3-4.7); POTASSIUM 3.6 mmol/L (3.5-5.1)
[2018-03-03] MEDS: TRAMADOL HCL 50 MG TAB PO SCH (05:54)
[2018-03-03] MEDS: METOPROLOL TARTRATE INJ 1 MG/ML VIAL IV PRN ×2 (06:05→21:14)
--- NOTE | 2018-03-03 06:26 | Diagnostic Imaging Report ---
CHEST SINGLE (PORTABLE), 03/03/2018 5:00 AM Technique: CHEST SINGLE (PORTABLE) Comparison: Previous day Clinical history: Intubated Findings: See Impression Impression: 1. Lines/Tubes: Removal of ET tube. Stable right IJ central venous catheter near the cavoatrial junction. 2. Stable enlarged cardiomediastinal silhouette. 3. Persistent layering effusions and associated opacity, possibly a component of underlying atelectasis/edema Signed by: Dr Denisse Bee MD on 03/03/2018 6:22 AM
--- NOTE | 2018-03-03 07:00 | NUR ---
Bedside report given to Cheryl DALLAS.
--- NOTE | 2018-03-03 07:20 | NUR ---
pt resting in bed, no c/o pain or s/s distress. will continue to monitor.
[2018-03-03] MEDS: PANTOPRAZOLE 40 MG 10ML VIAL IV SCH (08:07)
[2018-03-03] MEDS: ACETAMINOPHEN 325 MG TAB PO PRN (08:07)
[2018-03-03] MEDS: CITRIC ACID/SODIUM CITRATE 30 ML UDC PO SCH ×2 (08:07→17:48)
[2018-03-03] MEDS: LACTOBACILLUS ACIDOPHILUS CAPSULE PO SCH ×2 (08:07→17:48)
[2018-03-03] MEDS: VANCOMYCIN 1GM/NS 250 ML 250 ML IV SCH (08:07)
[2018-03-03] MEDS: DEXTROSE 5% 1,000 ML IV SCH (08:07)
[2018-03-03] MEDS: GUAIFENESIN/DEXTROMETHORPHAN LIQD 5 ML UDC NG PRN (08:07)
[2018-03-03] MEDS: BALSAM PERU/CASTOR OIL 60 GM OINT...G. TP SCH ×2 (08:07→17:48)
--- NOTE | 2018-03-03 09:19 | NUR ---
at bedside. attempt to turn pt, favors left side. speech in room working with pt
[2018-03-03] MEDS ORDERED: HALOPERIDOL LACTATE 5 MG/ML VIAL ONE (09:43)
--- NOTE | 2018-03-03 10:31 | NUR ---
pt became restless and tachypneic [id number]. dr beth on unit, orders for bipap and abg. dr talley on unit, dc scheduled ultram. will continue to monitor.
--- NOTE | 2018-03-03 10:59 | NUR ---
WOUND CARE CONSULT: THIS 78 YO FEMALE ADMITTED FOR CHRONIC RENAL FAILURE, SP EGO/PEG, ANEMIA & UROSEPSIS HAS BEEN ASSESSED PREVIOUSLY BY THE WC TEAM TWICE IN FEBRUARY. THIS RECONSULT SHOWS RIGHT HEEL AREA RESOLVED REDNESS. SHE HAS MOISTURE RELATED DENUDED SKIN TO ABDOMINAL FOLD. SHE ALSO HAS A LARGE SACRAL AREA NOW UNSTAGEABLE WHICH WAS PREVIOUSLY NOTED ON 02/27/18 A DTI AREA, THIS MEASURES 8.2X9X0.1CM. LABS; WBC 5.03 ALB 1.4 RECOMMENDATIONS: -CONTINUE ALTERNATING PRESSURE RELIEF MATTRESS -CONTINUE HEEL PROTECTORS WITH PILLOW SUSPENSION -TURN EVERY TWO HOURS AND PRN - NURSING TO APPLY VENELEX OINTMENT WITH NYSTATIN POWDER TO ABDOMINAL FOLD DAILY -NURSING TO APPLY SANTYL & ALLEVYN FOAM TO SACRAL ULCER DAILY THANK YOU FOR THIS CONSULT. Addendum: 03/03/18 at 1109 by Ally Moy RN Amended: Links added.
[2018-03-03 11:29] LABS: ABG HCO3 23 mmol/L (23-28); ABG PCO2 36 mmHg (41-51); ABG PH 7.42 (7.31-7.41); ABG PO2 87 mmHg (80-105)
[2018-03-03] MEDS ORDERED: HALOPERIDOL LACTATE 5 MG/ML VIAL IV PRN (12:45)
--- NOTE | 2018-03-03 14:06 | NUR ---
pt had large liquid bm. cleaned and bathed. dr stanley on unit, discussed pt status and care options with , along with possibly changing to DNR status with . agreed he would like pt to be DNR.
--- NOTE | 2018-03-03 14:08 | NUR ---
paging dr talley and dr beth to arrange meeting per husbands request, to have family here to discuss possible care options and outcomes, such as comfort measures. at bedside and family to come this afternoon. pending callback.
--- NOTE | 2018-03-03 14:25 | NUR ---
per dr beth, family may call him on cell when they are ready to discuss. per dr talley, states he will review with consults before meeting with family but will answer any questions if arises. both agree to change to DNR status.
[2018-03-03] MEDS ORDERED: FUROSEMIDE INJ 10 MG/ML 4 ML VIAL IV ONE (14:30)
[2018-03-03] MEDS: COLLAGENASE OINTMENT 30 GM TUBE TP SCH (15:00)
--- NOTE | 2018-03-03 15:51 | NUR ---
pt children at bedside, discussing poc with pt . educated on discussion witnessed between spouse and dr stanley regarding change to DNR. pt daughter and spouse agreed with DNR decision. family (pt , daughter and spouse, pt son) currently on unit technology infusion specialist with dr beth to discuss pt poc.
--- NOTE | 2018-03-03 16:02 | NUR ---
pt family discussed 4 component options with DNR, questions answered. agreeable to DNR at this time. no decisions made regarding change in poc or comfort measures.
--- NOTE | 2018-03-03 17:41 | Progress Note ---
DATE: March 03, 2018 GI PROGRESS REPORT SUBJECTIVE: Patient is tolerating G-tube feeding very well. No significant residual. Regular bowel movement. REVIEW OF SYSTEMS GENERAL: No fever or chills. RESPIRATORY: No cough or expectoration. CVS: No chest pain or palpitation. MEDICATIONS: Reviewed as per MAR. PHYSICAL EXAMINATION VITAL SIGNS: Temperature 98.2, pulse ranging from 113 to 73, respiratory rate 26 to 33, blood pressure 156/85 to 138/65, oxygen saturation 97% on 2 liters of nasal cannula. GENERAL: Lethargic and drowsy. Oral mucosa is moist. Anicteric sclerae. ABDOMEN: Soft, nondistended, nontender. Right nephrostomy, urostomy in lower quadrant. PEG site clean. No leak or any discharge. External bumper 2.5 cm from the skin. LABS: WBC 5.03, hemoglobin 8.3 (up from 7.9), hematocrit 27.2, and platelet count 275. Sodium 144, potassium 3.6, chloride 110, bicarb 22, BUN 51, creatinine 2.57 down from 2.69, glucose 116. ASSESSMENT 1. Oropharyngeal dysphagia, status post esophagogastroduodenoscopy/percutaneous endoscopic gastrostomy. 2. Anemia of chronic disease. 3. Urosepsis/obstructive uropathy, status post right nephrostomy and prior urostomy. PLAN: Continue PEG feeding. Check residuals every 4 to 6 hours. Watch for tolerance. Call GI for any G-tube malfunction. Job#: [id number]
--- NOTE | 2018-03-03 19:00 | NUR ---
Bedside report received from Pippa DALLAS. Pt received resting in bed with eyes open, HOB elevated 30 degrees, bed in lowest and locked position, call light in reach of the pt. Refer to nursery school teacher for further information as needed.
[2018-03-03] MEDS: QUETIAPINE FUMARATE 25 MG TAB PO SCH (21:14)
[2018-03-04] VITALS (17 sets, daily range): BP systolic 118–164; BP diastolic 63–92
[2018-03-04] MEDS: LEVALBUTEROL HCL SOLN NEBU 0.63 MG/3 ML NEB INH SCH ×5 (00:30→23:50)
[2018-03-04] MEDS: IPRATROPIUM BROMIDE 0.02% 2.5 ML NEB NEB SCH ×5 (00:30→23:50)
[2018-03-04] MEDS: ACETAMINOPHEN 325 MG TAB PO PRN (00:37)
[2018-03-04] MEDS: METOPROLOL TARTRATE 50 MG TAB PO SCH ×5 (00:37→23:58)
--- NOTE | 2018-03-04 06:02 | Diagnostic Imaging Report ---
EXAM: CHEST SINGLE (PORTABLE), AP 1 view INDICATION: Intubated COMPARISON: AP view of the chest March 03, 2018 FINDINGS: LINES/TUBES: Stable position right internal jugular vein temporary hemodialysis catheter. LUNGS: Stable bibasilar atelectasis. Bilateral apices not included in field of view. PLEURA: Stable small bilateral pleural effusions. HEART AND MEDIASTINUM: Stable appearance. BONES AND SOFT TISSUES: No acute findings. IMPRESSION: No interval change in appearance of the chest. Signed by: Dr. Gi Baxter M.D. on 03/04/2018 5:59 AM
[2018-03-04] MEDS: DEXTROSE 5% 1,000 ML IV SCH (06:13)
[2018-03-04] MEDS: CITRIC ACID/SODIUM CITRATE 30 ML UDC PO SCH ×2 (08:03→17:54)
[2018-03-04] MEDS: PANTOPRAZOLE 40 MG 10ML VIAL IV SCH (08:03)
[2018-03-04] MEDS: LACTOBACILLUS ACIDOPHILUS CAPSULE PO SCH ×2 (08:03→17:54)
[2018-03-04] MEDS: COLLAGENASE OINTMENT 30 GM TUBE TP SCH (08:03)
[2018-03-04] MEDS: BALSAM PERU/CASTOR OIL 60 GM OINT...G. TP SCH ×2 (08:03→17:54)
--- NOTE | 2018-03-04 08:18 | NUR ---
pt resting in bed, no c/o pain. vs stable. tube residual 230ml at this time. will continue to monitor.
--- NOTE | 2018-03-04 09:30 | NUR ---
dr arriaga and dr stanley on unit. aware pt fluctuates between ST and afib. pt resting, at bedside. no s/s distress.
--- NOTE | 2018-03-04 10:29 | NUR ---
per dr stanley, changing tube feed to nepro @40ml/hr. md aware of liquid bm and 230ml residual this morning. md ordered for pt to get 300ml free water q6hr, may hold feedings if high residuals. feeding on hold temporarily. 300ml free water bolus given. and son at bedside.
--- NOTE | 2018-03-04 17:55 | NUR ---
oral care and central line dressing changed done. pt had 110ml residual, admin meds plus 200ml bolus. feeding restarted @20 with 100ml flush q6 since pt residual high earlier and c/o fullness with previous flush. daughter at bedside. pt verbalizing more today. will continue to monitor.
[2018-03-04] MEDS: ENOXAPARIN 30 MG/0.3 ML SYR SC SCH (20:30)
--- NOTE | 2018-03-04 21:00 | NUR ---
Notified Dr. Salazar of new temperature and flag for SIRS alert per sepsis screening. Notified Dr. Salazar of protocol labs ordered and received order for antibiotic.
[2018-03-04] MEDS ORDERED: CEFEPIME HCL 1 GM VIAL IV SCH (21:30)
[2018-03-04 21:52] LABS: BASOPHILS % 0.4 % (0.0-1.0); EOSINOPHILS # (AUTO) 0.1 (0.0-0.4); EOSINOPHILS % 1.9 % (0.0-6.0); HEMATOCRIT 27.9 % (34.2-44.1); HEMOGLOBIN 8.7 g/dL (12.0-16.0); LYMPHOCYTES # (AUTO) 2.1 (1.0-3.2); LYMPHOCYTES % 36.4 % (18.0-39.1); MEAN CORPUSCULAR HEMOGLOBIN 30.4 pg (28-32); MEAN CORPUSCULAR HGB CONC 31.2 g/dL (31-35); MEAN CORPUSCULAR VOLUME 97.6 fL (81-99); MONOCYTES # (AUTO) 0.6 (0.2-0.8); NEUTROPHILS # (AUTO) 2.8 (2.1-6.9); NEUTROPHILS % 49.1 % (38.7-80.0); PLATELET COUNT 292 x10e3/uL (140-360); RED BLOOD COUNT 2.86 x10e6/uL (3.6-5.1); RED CELL DISTRIBUTION WIDTH 19.3 % (11.7-14.4)
[2018-03-04 21:58] LABS: INR 1.19; PROTHROMBIN TIME 16.1 seconds (11.9-14.5)
[2018-03-04 21:59] LABS: PARTIAL THROMBOPLASTIN TIME 56.3 seconds (23.8-35.5)
[2018-03-04] MEDS: QUETIAPINE FUMARATE 25 MG TAB PO SCH (22:00)
[2018-03-04 22:07] LABS: ALBUMIN 1.4 g/dL (3.5-5.0); ALBUMIN/GLOBULIN RATIO 0.3 (0.8-2.0); ANION GAP 15.4 mmol/L (8-16); CREATININE, SERUM 2.29 mg/dL (0.57-1.11); POTASSIUM 3.4 mmol/L (3.5-5.1)
[2018-03-04] MEDS: CEFEPIME 1GM/ SOD CHL 50 ML BAG IV SCH (23:00)
[2018-03-04 23:48] LABS: CLARITY,URINE CLOUDY (CLEAR); COLOR,URINE YELLOW (YELLOW)
[2018-03-04 23:49] LABS: BILIRUBIN,URINE NEGATIVE (NEGATIVE); KETONES,URINE NEGATIVE (NEGATIVE); LEUKOCYTE ESTERASE ,URINE 2+ (NEGATIVE); NITRITE,URINE NEGATIVE (NEGATIVE); PROTEIN,URINE DIPSTICK 2+ (NEGATIVE); URINE UROBILINOGEN 0.2 mg/dL (0.2 - 1)
[2018-03-05] VITALS (25 sets, daily range): BP systolic 84–153; BP diastolic 44–104
[2018-03-05 00:15] LABS: BACTERIA,URINE MANY /HPF; EPITHELIAL CELLS,URINE FEW /LPF; WBC,URINE (MAN) >50 /HPF (0-5)
[2018-03-05] MEDS: DEXTROSE 5% 1,000 ML IV SCH ×2 (03:30→21:00)
[2018-03-05 04:44] LABS: BASOPHILS % 0.4 % (0.0-1.0); EOSINOPHILS # (AUTO) 0.1 (0.0-0.4); EOSINOPHILS % 2.1 % (0.0-6.0); HEMATOCRIT 28.9 % (34.2-44.1); HEMOGLOBIN 8.9 g/dL (12.0-16.0); LYMPHOCYTES # (AUTO) 1.8 (1.0-3.2); LYMPHOCYTES % 31.9 % (18.0-39.1); MEAN CORPUSCULAR HEMOGLOBIN 30.4 pg (28-32); MEAN CORPUSCULAR HGB CONC 30.8 g/dL (31-35); MEAN CORPUSCULAR VOLUME 98.6 fL (81-99); MONOCYTES # (AUTO) 0.6 (0.2-0.8); MONOCYTES % 11.1 % (4.4-11.3); NEUTROPHILS # (AUTO) 3.1 (2.1-6.9); NEUTROPHILS % 53.6 % (38.7-80.0); PLATELET COUNT 301 x10e3/uL (140-360); RED BLOOD COUNT 2.93 x10e6/uL (3.6-5.1); RED CELL DISTRIBUTION WIDTH 19.3 % (11.7-14.4)
[2018-03-05 05:13] LABS: ALBUMIN 1.4 g/dL (3.5-5.0); ALBUMIN/GLOBULIN RATIO 0.3 (0.8-2.0); ANION GAP 16.4 mmol/L (8-16); CALCIUM 8.1 mg/dL (8.4-10.2); CREATININE, SERUM 2.28 mg/dL (0.57-1.11); POTASSIUM 3.4 mmol/L (3.5-5.1)
[2018-03-05] MEDS ORDERED: POTASSIUM CHLORIDE 20MEQ/100ML 100 ML IV ONE (05:30)
[2018-03-05] MEDS: METOPROLOL TARTRATE 50 MG TAB PO SCH ×3 (06:07→18:20)
--- NOTE | 2018-03-05 06:46 | Diagnostic Imaging Report ---
EXAM: CHEST SINGLE (PORTABLE), AP 1 view INDICATION: Fever COMPARISON: AP view of the chest March 04, 2018 FINDINGS: LINES/TUBES: Stable position right internal jugular vein temporary hemodialysis catheter. LUNGS: Bibasilar atelectasis and vascular congestion PLEURA: Likely small layering pleural effusions bilaterally HEART AND MEDIASTINUM: Stable cardiac enlargement BONES AND SOFT TISSUES: No acute findings. Generator projects over the right abdomen. IMPRESSION: No interval change in appearance of the chest Signed by: Dr. Gi Baxter M.D. on 03/05/2018 6:43 AM
--- NOTE | 2018-03-05 06:55 | NUR ---
Pt sleeping soundly and no family present. Marine Railway Operator left a card reminding family of availability of spiritual care and instructions on how to contact cytologist. JZAMIN SMITH Marine [employer] Operator Spiritual Care Department O: [phone] Pager: [phone] ([phone] number calling from)
[2018-03-05] MEDS: LEVALBUTEROL HCL SOLN NEBU 0.63 MG/3 ML NEB INH SCH ×3 (07:00→19:25)
[2018-03-05] MEDS: IPRATROPIUM BROMIDE 0.02% 2.5 ML NEB NEB SCH ×3 (07:00→19:25)
--- NOTE | 2018-03-05 07:30 | NUR ---
SACRAL DRESSING CHANGED, PT UROSTOMY BAG CHANGED. CHANGED AND REPOSITIONED WILL MONITOR CLOSELY
--- NOTE | 2018-03-05 08:30 | NUR ---
NOTIFIED MIMI VILLEGAS OF PT HR IN 110-115'S AT THIS TIME, WILL MEDICATE ACCORDING TO MAR
[2018-03-05] MEDS: METOPROLOL TARTRATE INJ 1 MG/ML VIAL IV PRN (08:45)
[2018-03-05] MEDS: COLLAGENASE OINTMENT 30 GM TUBE TP SCH (08:47)
[2018-03-05] MEDS: BALSAM PERU/CASTOR OIL 60 GM OINT...G. TP SCH ×2 (08:47→16:08)
[2018-03-05] MEDS: VANCOMYCIN 1GM/NS 250 ML 250 ML IV SCH (09:00)
[2018-03-05] MEDS: CEFEPIME 1GM/ SOD CHL 50 ML BAG IV SCH (09:00)
--- NOTE | 2018-03-05 09:15 | NUR ---
PT RESIDUAL AT 170CC AT THIS TIME. FEEDING HELD WILL CONTINUE TO MONITOR CLOSELY
[2018-03-05] MEDS: CITRIC ACID/SODIUM CITRATE 30 ML UDC PO SCH ×2 (09:18→16:59)
[2018-03-05] MEDS: LACTOBACILLUS ACIDOPHILUS CAPSULE PO SCH ×2 (09:18→16:59)
[2018-03-05] MEDS: PANTOPRAZOLE 40 MG 10ML VIAL IV SCH (09:18)
[2018-03-05 09:42] LABS: AMYLASE 27 U/L (25-125); LIPASE 44 U/L (8-78)
--- NOTE | 2018-03-05 09:52 | Progress Note ---
DATE: March 05, 2018 INFECTIOUS DISEASE PROGRESS NOTE SUBJECTIVE: Ms. Pena remains in intensive care unit. She is very weak and debilitated. The patient's at the bedside, discussed the case with him. Events reviewed. Laboratory data reviewed. This patient who is a 77-year-old white female, status post urostomy, multiple abdominal and pelvic surgeries before, comes in with abdominal pain. She was hypotensive. She was septic. The patient has been here since February 07. Patient is status post G-tube placement. Her laboratory data and blood cultures are pending. No growth since admission. Her sputum showed MSSA. Urine had Enterococcus faecalis. Her white count 5.68, hemoglobin 8.9, hematocrit 28.9, her platelet of 301,000. Sodium 141, potassium 3.4, creatinine of 2.28, total protein 5.9. MEDICATIONS: She is currently on Santyl, Xopenex, Atrovent, Lopressor, cefepime daily, Lovenox, vancomycin q.48 h. Her chest x-ray today showed stable chest. PHYSICAL EXAMINATION GENERAL: She is sleeping, noncommunicative, very weak. VITALS: T-max 100.8. HEENT: She is normocephalic. NECK: Supple. CHEST: Few crackles at the bases anteriorly. COR: S1, S2. No S3, S4, murmur. ABDOMEN: Soft. Bowel sounds present. No tenderness. EXTREMITIES: No edema. IMPRESSIONS 1. Chronic kidney disease. 2. Status post sepsis on admission. 3. Status post pneumonia, stable. 4. Low fever. Etiology unclear. Normal white count. I am going to discontinue her antibiotic. She has been on IV antibiotic and watches low fever. Will check the blood cultures. Will check the amylase and lipase. Status post pneumonia, which was treated. Leukocytosis, resolved. Will follow. Job#: [id number] CQ
--- NOTE | 2018-03-05 10:28 | NUR ---
RESIDUAL STILL 170 CC, CONTACTED DIETARY FOR RECOMMENDATIONS WAITING FOR CALL BACK
--- NOTE | 2018-03-05 11:15 | NUR ---
SPOKE TO REGARDING DIETARY RECOMMENDATIONS, MD STATES KEEP HER ON NEPRO ASKED IF HE WOULD TALK TO DIETARY STATES NO I DONT WANT TO TALK TO HER.
[2018-03-05] MEDS: ACETAMINOPHEN 325 MG TAB PO PRN ×2 (11:37→21:00)
--- NOTE | 2018-03-05 13:00 | NUR ---
MD DR.SHEBIB BLACKMON PT CONTINUE WITH LOW GRADE FEVER AT 99.9 HR 77 BP 101/65. WILL CONTINUE TO MONITOR CLOSELY
--- NOTE | 2018-03-05 13:00 | NUR ---
SPOKE TO WEALTH MANAGEMENT CONSULTANT STATES HOLD FEED IF RESIDUAL >500. WILL CONTINUE TO MONITOR CLOSELY
--- NOTE | 2018-03-05 14:01 | NUR ---
SPOKE TO REGARDING PT LOW GRADE FEVERS, RECEIVED ORDERS. WILL CONTINUE TO MONITOR CLOSELY
[2018-03-05] MEDS: FLUCONAZOLE 400MG/200ML BAG 200 ML IV SCH (14:05)
--- NOTE | 2018-03-05 14:39 | NUR ---
URINE CULTURE COLLECTED FROM NEPHRECTOMY TUBE PORT INSTRUCTED BY . TAKEN TO LAB
--- NOTE | 2018-03-05 14:57 | NUR ---
Nutrition Intervention Note RD Recommendation for Physician: - Rec continuous TF with Jevity 1.2 @45mL/hr and 2pkt Beneprotein, providing 1346kcal, 72g protein and 872mL fluids. meet 100% of her est calorie needs and 85% of protein needs - H2O flushes 30mL q 4hr; additional fluids per MD discretion. - Hold TF and consult RD if gastric residual >500mL within 24hr - Monitor daily labs, replace low lytes, check for GI tolerance Plan of Care: RD following, monitoring for tolerance and adequacy, TF rec Nutrition reason for involvement: Follow up Primary Diagnose(s): small-bowel obstruction or intestinal obstruction likely due to adhesions with associated large hernia, acute renal failure PMH: Chronic kidney disease, ureterostomy/ileal conduit obstruction, recurrent urinary tract infection, HTN, insomnia, reflux, L renal atrophy, CKD, pancreatitis, kidney stone, hypertension, recurrent UTI, renal atrophy, GERD, neurogenic bladder, ileal conduit, and chronic right hydronephrosis. GI: soft, liquid, small stool 03/05 Skin: stage I to right heel, DTI to sacrum and rash to right hip per wound care Labs: (03/05) K 3.4 L, BUN 45 H, Creatinine 2.28 H, Ca 8.1 L 02/28 lab results reviewed (02/25) K 3.3 L, BUN 60 H, Creatinine 2.45 H (02/20) Na 147 H, BUN 60 H, creatinine 2.29 H (02/18) BUN 55 H, Creatinine 2.47 H, Glucose 145 H, Ca 8.3 L (02/17) BUN 58 H, Creatinine 2.72 H, Glucose 168 H, Ca 8.2 L Meds: probiotics, protonix, dextrose Ht: 64in 03/01 noted ht at 120" and will tell nurse to change it Wt: 183lb 02/12, 242lb 02/18, 228lb 02/20, 236lb 02/25, 03/01 243.13lbs, 243.06lb 03/05 BMI: 31.4kg/m2 IBW: 120lb RD Assessment: (03/05) Chart reviewed. Pt was discussed during rounds. RN reported gastric residual of 175mL after rechecking TF (Nepro) twice this AM. Pt has had small amount of soft liquid stool today. Pt was tolerating Jevity 1.2 with no residual prior to PEG placement. Dr. Leonard has ordered Nepro for TF. Attempted to convince Dr. Leonard to change TF order back to Jevity 1.2 as her renal function has improved as well as K and phosphorus WNL. Nepro is not appropriate for pt as it has higher protein level, higher osmolality level and also restricts K and phosphorus. Dr. Leonard refused to speak w RD. Told RN Kayce to hold TF and consult RD if gastric residual >500mL within 24hr. Will continue to monitor and follow. (03/01) Consult received for EN recommendations S/P PEG placement. Pt failed MBSS and needed a PEG to meet terminal worker nutrition needs. Can resume previous EN orders on 03/02 as GI does not want to use the PEG until then. (02/25) Chart reviewed. Pt was discussed during rounds. Pending swallow study. Per RN, pt has had minimal gastric residual with TF and diarrhea for several days. (-) stool culture. Diarrhea possibly due to meds and IVF. Visited pt in the room. Pt is awake and alert. No complains of nausea or vomiting. Nepro is running at 40ml/hr with 500mL water flushes q 8hr. Renal function is stable. RD spoke with RN (Phan) about changing TF to Jevity 1.2 @45mL/hr (fiber, lower osmolality, stable renal function) and rec probiotics to help with diarrhea. RD was told by RN that Dr. Leonard wanted to keep TF below 40mL/hr and increase free water flushes to 500mL q 6hr. Will continue to monitor and follow. (02/20) Chart reviewed. Pt is extubated and off ventilation. TPN discontinued. HVAC FIELD SERVICE TECHNICIAN is consulted for swallow evaluation. Pt will remain on TF with Nepro @40mL/hr until swallow eval is completed. Visited pt in the room. Pt is awake, alert and in no acute distress. Per family, pt has some diarrhea and stool culture has been obtained. Otherwise, pt has no other GI complains. Will continue to monitor and follow. (02/18) Chart reviewed. Pt remains intubated and ventilated. Per RN, pt will start TF while weaning off TPN. Renal function has improved; no dialysis. Phosphorus and potassium levels have been stable. No GI complains noted. Flatus present. RD rec continuous TF with Vital AF 1.2 Norman @45mL/hr, providing 1296kcal, 81g protein, and 876mL fluids. Free water flushes of 30mL q 4hr. If PO is feasible and % meal intake >50%, d/c TF. Discussed with nursing. Will continue to monitor and follow. (02/17) Chart reviewed. Pt was discussed during rounds. Visited pt in the room. Pt remains intubated and ventilated. No surgery intervention planned for SBO. NGT on suction, still draining dark fluids. Pt is currently receiving standard TPN @ 60mL/hr with addition of 25g lipid on MWF, which is meeting her protein and calorie needs. Family is aware of the purpose of TPN. No phosphorus and magnesium drawn for today; RN is aware. Will continue to monitor and follow. (02/13) Chart reviewed. Labs and meds reviewed. 77 yo F, who is admitted for abdominal pain. R nephrostomy catheter placed today. Positive urine culture. Visited pt in the room. Family on bedside provided info. NGT on suction, still draining dark fluids. Per family, pt has been sick with fever and poor PO intake for over a week REHAB LIA[facility]. Family doesnt suspect any recent weight loss with stable weight ~175lb. Pt was able to chew and swallow without any issue at home. Code sepsis was called shortly after I left the room. Pt was transferred to ICU 194. Will continue to monitor and follow. Current Diet: NPO Malnutrition Evaluation (03/06) The patient does not meet criteria for a specified degree of malnutrition at this time. Will re-evaluate at follow-up as appropriate. Malnutrition Evaluation (02/13) The patient does not meet criteria for a specified degree of malnutrition at this time. Will re-evaluate at follow-up as appropriate. Energy intake: <75% of estimated energy requirements for >7 days Weight loss: None per family. No physical sign of malnutrition upon observation, with BMI of 31.4kg/m2. Estimated Nutritional Needs: Calories: 1210 1375kcal (22-25kcal/kg ) Weight used : Section body weight Protein : 83 138g (1.5-2.5g/kg) Weight used: Section body weight Diet Adequacy: Meeting energy and protein needs Diet Education Needs Assessment: Diet education not indicated. Nutrition Care Level: mod Nutrition Diagnosis: Inadequate oral intake related to current medical status as evidenced by pt requiring TF as main source of nutrition. Goal: Patient will meet 75-100% of estimated needs by follow up Progress: Some progress Interventions: Rate, composition, collaboration with other providers Monitoring/Evaluation: Total energy intake, Total protein intake, formula/solution, Weight change Leeann Mariee MS, RD, LD
--- NOTE | 2018-03-05 15:13 | NUR ---
PATIENT POST OP PEG PLACEMENT RECEIVING TUBE FEEDING. PATIENT TRANSFERRED TO ICU ON 03/01 FOR INCREASED HR POST PROCEDURE. PATIENT HAS NO IV ANTIBIOTICS ON HER CASE AND PER LAST PT EVAL PATIENT IS WEIGHTBEARING AND ABLE TO SIT ON EDGE OF BED. PATIENT IS NOW A DNR AND DR. PERSAUD HAS UPDATED ORDER FROM [facility] TO HOSPICE EVALUATION. PENDING PATIENT FAMILY CHOICE TO INITIATE PROCESS OR CONTINUE WITH SNF EVALUATION FOR [facility]. SHAHLA, RICCO TO FOLLOW UP WITH CHOICE AND INITIATION OF PLACEMENT.
--- NOTE | 2018-03-05 15:16 | NUR ---
SPOKE WITH ZOHAIB AND ASKED IF DOCTOR HAD SPOKEN TO HIM ABOUT HOSPICE, HE STATES NO BUT THEN STATES THAT HE TALKED ABOUT PT DECLINE AND COMFORT CARE. EDUCATED ABOUT HOSPICE, HE SIGNED CHOICE FOR [facility] TO COME AND SPEAK WITH THEM FOR EDUCATION PURPOSES. LET CHOCO WITH [facility] KNOW, SHE WILL REACH OUT TO FAMILY AND MAURICIO WILL SPEAK WITH THEM TOMORROW.
--- NOTE | 2018-03-05 15:28 | NUR ---
JUST INFORMED FROM CHOCO FROM [facility] THAT MAURICIO WILL CALL AGAIN IN MORNING BUT TOLD HER THAT HE HAD A MEETING WITH FAMILY AND THEY BELIEVE SHE WILL PULL THROUGH AND HE WANTS TO TRY THE PRISON. THEY WILL ATTEMPT AGAIN IN THE MORNING AND NOTIFY THE SW OF THE CONVERSATION.
[2018-03-05] MEDS: HYDRALAZINE HCL 25 MG TAB PO PRN (16:15)
--- NOTE | 2018-03-05 16:40 | NUR ---
SPOKE TO STATES HE WILL BE HERE AT BETWEEN 9 AND 930 FOR CONFERENCE WITH FAMILY AND .
--- NOTE | 2018-03-05 19:00 | NUR ---
Bedside report received from Marge DALLAS. Pt received resting in bed with eyes open, following simple commands, on room air, pts son at the bedside, no signs of distress noted at this time.
[2018-03-05] MEDS: GUAIFENESIN/DEXTROMETHORPHAN LIQD 5 ML UDC NG PRN (21:00)
[2018-03-05] MEDS: QUETIAPINE FUMARATE 25 MG TAB PO SCH (21:00)
[2018-03-05] MEDS: ENOXAPARIN 30 MG/0.3 ML SYR SC SCH (21:01)
[2018-03-06] VITALS (24 sets, daily range): BP systolic 88–161; BP diastolic 33–100
[2018-03-06] MEDS: IPRATROPIUM BROMIDE 0.02% 2.5 ML NEB NEB SCH ×4 (00:10→19:17)
[2018-03-06] MEDS: LEVALBUTEROL HCL SOLN NEBU 0.63 MG/3 ML NEB INH SCH ×4 (00:10→19:17)
[2018-03-06] MEDS: METOPROLOL TARTRATE 50 MG TAB PO SCH ×5 (00:22→23:03)
[2018-03-06] MEDS: CITRIC ACID/SODIUM CITRATE 30 ML UDC PO SCH ×2 (08:10→17:07)
[2018-03-06] MEDS: PANTOPRAZOLE 40 MG 10ML VIAL IV SCH (08:10)
[2018-03-06] MEDS: LACTOBACILLUS ACIDOPHILUS CAPSULE PO SCH ×2 (08:11→17:07)
[2018-03-06] MEDS: METOPROLOL TARTRATE INJ 1 MG/ML VIAL IV PRN ×2 (08:11→14:36)
[2018-03-06] MEDS: BALSAM PERU/CASTOR OIL 60 GM OINT...G. TP SCH ×2 (09:32→17:07)
[2018-03-06] MEDS: COLLAGENASE OINTMENT 30 GM TUBE TP SCH (09:32)
--- NOTE | 2018-03-06 09:34 | NUR ---
20 ML TUBE RESIDUAL
--- NOTE | 2018-03-06 10:45 | NUR ---
CLARIFIED TUBE FEED ORDER WITH DR CABAN FOR NEPRO AT 40 ML/HR AND 200 ML WATER FLUSHES Q6 HR. DC'D IVF
--- NOTE | 2018-03-06 12:31 | NUR ---
PT FAMILY REFUSED HOSPICE, THEY WOULD PREFER TO SEND PT TO SNF AND FEEL SHE IS IMPROVING. FAXED UPDATED CLINICALS TO [facility] AND WILL UPDATE WHEN GET AUTH.
[2018-03-06] MEDS: FLUCONAZOLE 400MG/200ML BAG 200 ML IV SCH (13:00)
--- NOTE | 2018-03-06 14:10 | NUR ---
ASSESSMENT: Spiritual concern Pt's family hopeful. Pt's and son at bedside. Pt's states she was talking and very active this morning. Pt's states he "signed paperwork" for her transfer to a facility "5 minutes from the house." Intervention: Provided empathic listening. Provided prayer. Outcome: Will continue to follow as able. JAZMIN SMITH Surgical Garment Inspector Spiritual Care Department O: [phone] Pager: [phone] ([phone] number calling from)
[2018-03-06] MEDS: ENOXAPARIN 30 MG/0.3 ML SYR SC SCH (21:12)
[2018-03-06] MEDS: GUAIFENESIN/DEXTROMETHORPHAN LIQD 5 ML UDC NG PRN (21:12)
[2018-03-06] MEDS: ACETAMINOPHEN 325 MG TAB PO PRN (21:12)
[2018-03-06] MEDS: QUETIAPINE FUMARATE 25 MG TAB PO SCH (21:12)
[2018-03-07] VITALS (13 sets, daily range): BP systolic 97–165; BP diastolic 43–95
[2018-03-07] MEDS: IPRATROPIUM BROMIDE 0.02% 2.5 ML NEB NEB SCH ×3 (02:00→13:28)
[2018-03-07] MEDS: LEVALBUTEROL HCL SOLN NEBU 0.63 MG/3 ML NEB INH SCH ×3 (02:00→13:28)
[2018-03-07 05:08] LABS: BASOPHILS % 0.2 % (0.0-1.0); EOSINOPHILS # (AUTO) 0.1 (0.0-0.4); EOSINOPHILS % 2.3 % (0.0-6.0); HEMATOCRIT 24.2 % (34.2-44.1); HEMOGLOBIN 7.4 g/dL (12.0-16.0); LYMPHOCYTES # (AUTO) 1.5 (1.0-3.2); LYMPHOCYTES % 31.2 % (18.0-39.1); MEAN CORPUSCULAR HEMOGLOBIN 30.3 pg (28-32); MEAN CORPUSCULAR HGB CONC 30.6 g/dL (31-35); MEAN CORPUSCULAR VOLUME 99.2 fL (81-99); MONOCYTES # (AUTO) 0.5 (0.2-0.8); MONOCYTES % 10.7 % (4.4-11.3); NEUTROPHILS # (AUTO) 2.6 (2.1-6.9); NEUTROPHILS % 54.8 % (38.7-80.0); PLATELET COUNT 229 x10e3/uL (140-360); RED BLOOD COUNT 2.44 x10e6/uL (3.6-5.1); RED CELL DISTRIBUTION WIDTH 18.9 % (11.7-14.4)
[2018-03-07 05:47] LABS: ANION GAP 15.2 mmol/L (8-16); CREATININE, SERUM 2.16 mg/dL (0.57-1.11); MAGNESIUM 1.6 MG/DL (1.3-2.1); POTASSIUM 3.2 mmol/L (3.5-5.1)
[2018-03-07] MEDS: METOPROLOL TARTRATE 50 MG TAB PO SCH ×2 (06:18→11:28)
[2018-03-07] MEDS ORDERED: DILTIAZEM HCL 5 MG/ML 5 ML VIAL IV STA (08:37)
[2018-03-07] MEDS: LACTOBACILLUS ACIDOPHILUS CAPSULE PO SCH (08:51)
[2018-03-07] MEDS: CITRIC ACID/SODIUM CITRATE 30 ML UDC PO SCH (08:51)
[2018-03-07] MEDS: PANTOPRAZOLE 40 MG 10ML VIAL IV SCH (08:51)
[2018-03-07] MEDS ORDERED: POTASSIUM CHLORIDE 20MEQ/15ML UDC PEG ONE (11:15)
[2018-03-07] MEDS: COLLAGENASE OINTMENT 30 GM TUBE TP SCH (12:37)
[2018-03-07] MEDS: BALSAM PERU/CASTOR OIL 60 GM OINT...G. TP SCH (12:38)
--- NOTE | 2018-03-07 12:49 | NUR ---
PT ACCEPTED TO [facility] ROOM 416B CALL REPORT TO STATION UNDER DR TRIVEDI, RTF AND POST DISCHARGE FORM COMPLETED AND PUT ON CHART WITH [facility], HAD SIGN AMBULANCE TRANSPORT AND GAVE ALL INFORMATION TO NURSE.
--- NOTE | 2018-03-07 13:38 | Progress Note ---
DATE: March 07, 2018 GASTROINTESTINAL PROGRESS NOTE SUBJECTIVE: Patient is tolerating G-tube feeding. She is likely going to be discharged to a jail today. REVIEW OF SYSTEMS: GENERAL: No fever or chills. Is still lethargic and drowsy. CVS: No chest pain, palpitation. RESPIRATORY: No cough or expectoration. MEDICATIONS: Reviewed the MAR. PHYSICAL EXAMINATION: VITAL SIGNS: Temperature 98.7. Pulse ranging from 108 to 116. Respiration 21 to 27. Blood pressure 149/75. Oxygen saturation 98% on room air. GENERAL: Drowsy and lethargic. HEENT: Oral mucosa is moist. ABDOMEN: Soft, nondistended. PEG tube in place, site is clean, no oozing, external bumper 2.5 cm from the skin. Urostomy bag in the right lower quadrant and nephrostomy tube on the right side. Bowel sounds present. ASSESSMENT: 1. Oropharyngeal dysphagia with high risk of aspiration during swallowing. Patient has had an upper endoscopy with a percutaneous endoscopic gastrotomy placement on this admission. 2. Anemia of chronic disease. 3. Urosepsis/obstructive uropathy status post right nephrostomy and prior urostomy. PLAN: Continue PEG feeding. Check residuals. Watch for tolerance. Patient can be discharged from GI standpoint. GI to be contacted for any PEG malfunction. Job#: [id number] MARIBETH
[2018-03-07] MEDS: FLUCONAZOLE 400MG/200ML BAG 200 ML IV SCH (14:12)
--- NOTE | 2018-03-07 14:26 | NUR ---
DR CABAN ORDER TO REMOVE RIGHT IJ HD CATHETER BEFORE DISCHARGE. REMOVED AND HELD PRESSURE X 10 MINUTES THEN APPLIED PRESSURE DRESSING. LEFT FA PIV INSERTED
--- NOTE | 2018-03-07 15:06 | NUR ---
PATIENT ACCEPTED TO GROUP HOME FACILITY: [facility] Address: [address] [place] [id number] CALL REPORT TO: (STATION 2) ROOM# 416B PHYSICIAN RECEIVING PATIENT: DR. TRIVEDI PATIENT TRANSFERRING VIA AMBULANCE. FAMILY () IS AWARE. SW NOTIFIED BEDSIDE RN TO CALL REPORT.
--- NOTE | 2018-03-08 21:38 | Discharge Summary ---
CONSULTANTS 1. Dr. Ciera Leonard. 2. Dr. Anthony Gutiérrez. 3. Dr. Robby Estrada. 4. Dr. Kaden Muñoz. FINAL DIAGNOSES 1. Sepsis with shock associated with toxic encephalopathy. 2. Complicated urinary tract infection associated with ileal conduit and associated with ureteral stricture. 3. Chronic kidney disease, stage III to stage IV with 1 kidney. 4. Status post percutaneous nephrostomy tube. 5. Status post percutaneous endoscopic gastrostomy tube placement with feeding. 6. Kdibl-zh-owibaop diastolic dysfunction and congestive heart failure. 7. Severe medical debility. 8. Status post intubation secondary to multiple factors, first with aspiration pneumonia, subsequent fluid overload, and then after percutaneous endoscopic gastrostomy tube placement. SUMMARY: Patient is a 78-year-old female with extensive baseline chronic medical problems. The patient only has 1 kidney. She does have chronic kidney disease. The patient came in with small bowel obstruction. She also has bilateral urethral strictures. She had ileostomy tubes, ventral hernia. Patient was treated conservatively with NG tube and also with fluid rehydration for acute dehydration along with urinary tract infection. The patient did receive antibiotic treatment as well. Patient was doing better until she subsequent with worsening small obstruction where she required NG tube placement. During the time of treatment, the patient subsequently developed most likely aspiration pneumonia due to her complicated medical problems. Patient went into respiratory failure, fluid overload with fluid resuscitation, septic shock, toxic encephalopathy, remained on the ventilator support. Dr. Anthony Gutiérrez was consulted. The patient went through a period of treatment, ventilator support and subsequently extubated, but she failed swallowing evaluation, both with MBS and bedside evaluation significantly. The patient subsequently was given NG tube feeding where she tolerated, but that would have significantly agitated the patient. We have repeated swallowing test, the patient did not pass the swelling test; therefore subsequently evaluated for PEG tube placement where she did go to have a PEG tube placed. During those times, the patient however was at very high risk. Therefore, she was intubated for the PEG tube placement. Post PEG tube placement, the patient subsequently remained in the ICU, weaning on the ventilator. Patient continued to decline while she was on ventilator, but subsequently recovered enough where she was extubated. During those time, the patient did continue with her tube feeding through the PEG tube, she tolerated it well, although slowly but increased in rate. Patient subsequently extubated the second time off the ventilator support, but she still remained lethargic with overall condition. On the day prior to her discharge to skilled facility, however, she has increase in her mentation and much better in strength. There was discharge planning including long-term acute care where the patient would not qualify, off antibiotics, but then she is recovering enough where she will need a skilled care prior to any comfort measures if declined. Family meeting was done and subsequently evaluation for skilled is agreeable and appropriate for patient to recover. Overall, the patient is stable. NG tube was out. Central line was out. Patient would remain on percutaneous tube due to her obstruction. Her urine looked clean. She has no longer sepsis and infection was resolving off antibiotics. Patient was stable. Tolerating tube feeding. She is getting physical therapy. Evaluation for skilled care subsequently appropriate and approved by the insurance. Patient was subsequently discharged to skilled facility. Continue with physical therapy, tube feeding, and recovering. The patient will need to follow up with Dr. Robby Estrada for her percutaneous tube management along with ileal conduit. Overall, the patient is stable, but not back to baseline. The patient will continue with skilled facility care and physical therapy along with medication management. Please review the MAY discharge. Job#: [id number] OKSANA
== END 2018-03-07 15:54 | DRG 870 ==
LOC: ER 12:31 → ERHOLD 16:28 → MED/SURG3 20:51 → OBSVTOIN 02-07 16:21 → ICU 02-13 14:41 → IMCU 02-25 21:45 → ICU 02-28 15:50
PROVIDERS: ADMIT Internal Medicine; ATTEND Internal Medicine
PROC: 0T9030Z Drainage of Right Kidney with Drainage Device, Percutaneous Approach (ICD-10-PCS; 2018-02-12)
PROC: 5A1955Z Respiratory Ventilation, Greater than 96 Consecutive Hours (ICD-10-PCS; principal; 2018-02-13)
PROC: 0BH17EZ Insertion of Endotracheal Airway into Trachea, Via Natural or Artificial Opening (ICD-10-PCS; 2018-02-13)
PROC: 30233N1 Transfusion of Nonautologous Red Blood Cells into Peripheral Vein, Percutaneous Approach (ICD-10-PCS; 2018-02-15)
PROC: 0DH63UZ Insertion of Feeding Device into Stomach, Percutaneous Approach (ICD-10-PCS; 2018-02-28)
PROC: 0DB78ZX Excision of Stomach, Pylorus, Via Natural or Artificial Opening Endoscopic, Diagnostic (ICD-10-PCS; 2018-03-05)
DX: A41.9 Sepsis, unspecified organism (principal); R65.21 Severe sepsis with septic shock; G92 Toxic encephalopathy; I50.33 Acute on chronic diastolic (congestive) heart failure; J69.0 Pneumonitis due to inhalation of food and vomit; J96.90 Respiratory failure, unspecified, unspecified whether with hypoxia or hypercapnia; N13.6 Pyonephrosis; N10 Acute pyelonephritis; N28.0 Ischemia and infarction of kidney; I13.0 Hypertensive heart and chronic kidney disease with heart failure and stage 1 through stage 4 chronic kidney disease, or unspecified chronic kidney disease; K56.609 Unspecified intestinal obstruction, unspecified as to partial versus complete obstruction; N20.2 Calculus of kidney with calculus of ureter; N17.9 Acute kidney failure, unspecified; I48.92 Unspecified atrial flutter; K56.50 Intestinal adhesions [bands], unspecified as to partial versus complete obstruction; E87.0 Hyperosmolality and hypernatremia; N18.3 Chronic kidney disease, stage 3 (moderate); Z93.2 Ileostomy status; E86.0 Dehydration; Z93.6 Other artificial openings of urinary tract status; G47.00 Insomnia, unspecified; N31.9 Neuromuscular dysfunction of bladder, unspecified; K46.9 Unspecified abdominal hernia without obstruction or gangrene; N25.89 Other disorders resulting from impaired renal tubular function; Z88.0 Allergy status to penicillin; R13.12 Dysphagia, oropharyngeal phase; D63.8 Anemia in other chronic diseases classified elsewhere; R40.4 Transient alteration of awareness
CPT/HCPCS: 10030; 36415; 36580; 36600; 43239; 43246; 50430; 71045; 71046; 71250; 74018; 74176; 74230; 74470; 76604; 76770; 77001; 80048; 80053; 80202; 81001; 82140; 82150; 82330; 82607; 82746; 82805; 82948; 83090; 83605; 83690; 83735; 83921; 84100; 84436; 84443; 84479; 84550; 85007; 85025; 85027; 85379; 85610; 85730; 86850; 86900; 86920; 87040; 87070; 87086; 87186; 87205; 87493; 88305; 88312; 93005; 93306; 93970; 94002; 94003; 94640; 94660; 94667; 94668; 96360; 96361; 96367; 97139; 99284; C1769; G0378; J0330; J0692; J0696; J1160; J1450; J1630; J1644; J1650; J1940; J2001; J2060; J2185; J2250; J2370; J2405; J3370; J3475; J3480; J7030; J7050; J7070; P9016